=== PATIENT | female | born 1940 | race Caucasian/White ===

== ENCOUNTER 2019-01-30 05:38 | Inpatient (IN) | payer MEDICARE ==
[~2019-01-30] VITALS: Ht 160 cm; Wt 95.9 kg
[2019-01-30] VITALS (7 sets, daily range): BP systolic 122–184; BP diastolic 40–71; BMI 37.6
--- NOTE | ~2019-01-30 | HEMODYNAMI ---
PATIENT:ROSE OLSON MEDICAL RECORD: [id number] : 36 LOCATION:[facility] D.2124 ADMISSION DATE: 01/30/19 Generatedon:02/02/20199:15 Patient name: ROSE OLSON Patient #: [id number] SSN: [id number] : 1940 Date of study: 02/02/2019 Page: Of Hemodynamic Procedure Report Patient Data Patient Demographics Procedure consent was obtained First Name: ROSE Gender: Female Last Name: WHITNEY : 1940 Patient #: [id number] Age: 78 year(s) Race: SSN: [id number] Additional ID: [id number] Contact details Address: [address] [place] [address] State: [place] City: [place] Zip code: [address] Past Medical History Allergies: No known allergies Admission Admission Data Admission Date: 01/30/2019 Admission Time: 6:32 Arrival Date: 02/02/2019 Arrival Time: 0:00 Admit Source: Other Insurance Payor: Medicare Room #: D.2124 [facility] #: [id number] Height (in.): 62.99 BSA: 1.98 (m2) Height (cm.): 160 BMI: 37.5 (kg/m2) Weight (lbs.): 211.64 Weight (kg.): 96 Lab Results Lab Result Date: 02/02/2019 Lab Result Time: 0:00 Biochemistry Name Units Result Min Max BUN mg/dl 40 --(----)-* 7 18 Creatinine mg/dl 2.8 --(----)-* 0.6 1.3 eGFR ml/min 17 *-(----)-- 90 120 NONAFRICAN CBC Name Units Result Min Max Hematocrit % 37.3 *-(----)-- 42 54 Hemoglobin g/dl 11.9 *-(----)-- 13.5 17.5 Procedure Procedure Types Cath Procedure Diagnostic Procedure [facility] w/Coronaries Sedation Charges Moderate Sedation up to 15 minutes Procedure Description Procedure Date Procedure Date: 02/02/2019 Procedure Start Time: 8:42 Procedure End Time: 9:12 Procedure Staff Name Function Abelardo Villa MD Performing Physician Barb Houston RT Monitor Kia Musa RT Monitor Kelley Holman RT Scrub Anupam Kulkarni RN Nurse Indication CHF Procedure Data Cath Procedure Fluoroscopy Diagnostic fluoroscopy Total fluoroscopy Time: 0 time: 0 min min Diagnostic fluoroscopy Total fluoroscopy dose: 455 dose: 455 mGy mGy Contrast Material Contrast Material Type Amount (ml) Isovue 300 70 Entry Location Entry Primary Successful Side Size Upsize Upsize Entry Closure Succes sful Closure Location (Fr) 1 (Fr) 2 (Fr) Remarks Device Remarks Femoral Left 5 Fr Exoseal artery Estimated blood loss: 5 ml Diagnostic catheters Device Type Used For End Catheter Placement MULTIPACK 3DRC 5Fr Procedure catheter MULTIPACK Pigtail 5 Fr Procedure catheter MULTIPACK JL 4.0 5Fr Left Coronary catheter Angiography Procedure Complications No complications Procedure Medications Medication Administration Route Dosage 0.9% NaCl I.V. 100 ml/hr Oxygen etCO2 Nasal cannula 2 l/min Heparin Flush Bag added to field 2 bags (1000units/500ml NS) Lidocaine 2% added to field 20 Versed I.V. 1 mg Fentanyl I.V. 25 mcg Fentanyl I.V. 25 mcg Versed I.V. 0.5 mg Fentanyl I.V. 25 mcg Hemodynamics Rest BSA: 1.98 (m2) HGB: 11.9 (g/dl) O2 Consumption: Estimated: 180.57 (ml/min) O2 Co nsumption indexed: Estimated:91.2 (ml/min/m) Heart Rate: 73 (bpm) Pressure Samples Time Site Value (mmHg) Purpose Heart Use Rate(bpm) 8:59 AO 155/13(54) Snapshot 59 9:00 LV 153/9,9 Snapshot 61 Gradients Valve Time Site Site Mean SEP/DFP Peak To Heart Use 1 2 (mmHg) (sec/min) Peak Rate (mmHg) (bpm) Aortic 9:00 LV AO 65 Snapshots Pre Cath Intra NCS Post Cath Vital Signs Time Heart Resp SPO2 etCO2 NIBP (mmHg) Rhythm Pain Sedation Rate (ipm) (%) (mmHg) Status Level (bpm) 8:31:21 78 21 95 0 211/83(157) NSR 0 (11) 10(A) , No pain 8:36:18 74 27 96 0 190/73(160) NSR 0 (11) 10(A) , No pain 8:41:05 70 26 91 0 183/73(134) NSR 0 (11) 10(A) , No pain 8:45:52 69 24 94 0 183/80(140) NSR 0 (11) 10(A) , No pain 8:50:41 69 20 96 15 183/77(144) NSR 0 (11) 10(A) , No pain 8:55:25 66 21 93 0 173/75(134) NSR 0 (11) 9(A) , No pain 9:01:24 62 19 93 21 159/72(123) NSR 0 (11) 9(A) , No pain 9:06:06 61 17 96 22.5 160/68(129) NSR 0 (11) 9(A) , No pain 9:10:49 58 19 96 16.5 163/71(132) NSR 0 (11) 9(A) , No pain Medications Time Medication Route Dose Verified Delivered Reason Notes Effe ctiveness by by 8:36:09 0.9% NaCl I.V. 100 Anupam Anupam for low 02 ml/hr Lorigan Lorigan sats RN RN 8:36:22 Oxygen etCO2 2 Anupam Anupam for low 02 Nasal l/min Lorigan Lorigan sats cannula RN RN 8:36:37 Heparin Flush added 2 Anupam Anupam used for Bag to bags Lorigan Lorigan procedure (1000units/500ml field RN RN NS) 8:36:53 Lidocaine 2% added 20ml Anupam Anupam for local to vial Lorigan Lorigan anesthetic field RN RN 8:42:27 Versed I.V. 1 mg Anupam Anupam for Lorigan Lorigan sedation RN RN 8:42:38 Fentanyl I.V. 25 Anupam Anupam for mcg Lorigan Lorigan sedation RN RN 8:50:18 Fentanyl I.V. 25 Anupam Anupam for mcg Lorigan Lorigan sedation RN RN 8:51:44 Versed I.V. 0.5 Anupam Anupam for mg Lorigan Lorigan sedation RN RN 8:52:53 Fentanyl I.V. 25 Anupam Anupam abdi [facility] Cayla Kulkarni sedation RN order control clerk blood bank Log Time Note 8:01:35 Informed consent obtained and on chart 8:02:03 Procedure Status Urgent Heart Cath (IP). 8:02:04 Time tracking: Regular hours (M-F 7:00 - 5:00) 8:02:11 Plan of Care:Hemodynamics will remain stable., Cardiac rhythm will remain stable., Comfort level will be maintained., Respiratory function will remain adequate., Patient/ family verbilizes understanding of procedure., Procedure tolerated without complication., Recovers from procedure without complications.. 8:02:16 Aishwarya Field RN sent for patient. Start room use. 8:02:23 H&P Date Dictated: 02/02/2019 ER History on chart.. 8:05:12 Lab Result : BUN 40 mg/dl 8:05:12 Lab Result : Hematocrit 37.3 % 8:05:12 Lab Result : eGFR NONAFRICAN 17 ml/min 8:05:12 Lab Result : Creatinine 2.8 mg/dl 8:05:12 Lab Result : Hemoglobin 11.9 g/dl 8:05:46 Patient allergic to No known allergies 8:07:10 Risk of Mortality: 1.6 8:07:13 Risk of blood transfusion: 4.2 8:07:17 Risk of DEBI: 5.3 8:11:35 Indication : CHF 8:12:17 Arrival Date: 02/02/2019 12:00:00 AM 8:12:52 Insurance Payor : Medicare 8:12:57 Admit Source: Other 8:13:03 Patient Height : 62.99 inches 8:13:09 Patient Weight : 211.64 lbs 8:20:34 Patient received from Med II to CCL 1 Alert and oriented. Tansferred to table in Supine position. 8:28:08 Warm blankets applied, and dylan hugger turned on for patient comfort. 8:28:09 Correct patient and procedure confirmed by team. 8:28:10 ECG and BP/O2 sat monitors applied to patient. 8:28:22 Vital chart was started 8:28:24 Baseline sample Acquired. 8:28:29 Full Disclosure recording started 8:28:30 8:28:36 Pre-procedure instructions explained to patient. 8:28:39 Pre-op teaching completed and patient verbalized understanding. 8:28:59 Family unavailable. 8:29:03 Patient NPO since Midnight. 8:29:11 Is the patient allergic to Iodine/contrast media? No. 8:29:19 Is patient on blood thinner?No 8:29:25 Patient diabetic? Yes. 8:29:29 If diabetic: On Metformin? No 8:29:35 Patient not . Patient is over age 53. 8:29:37 ----Pre-sedation anethsthesia assessment.---- 8:29:42 Previous problem with sedation/anesthesia? No ? 8:29:45 Snore? Yes 8:29:47 Sleep apnea? No 8:29:50 Deviated septum? No 8:29:53 Opens mouth fully? Yes 8:29:54 Sticks out tongue? Yes 8:30:05 Airway obstruction? Yes asthma 8:30:19 Dentures? Yes in tight 8:31:06 NO RADIAL DUE TO IV ACCESS. 8:31:13 Patient pain scale 0/10 ?. 8:31:28 IV patent on arrival in right hand with 0.9% NaCl at [facility]. 8:31:45 Pre procedure: right dorsailis pedis pulse 1+ Palpable, but thready & weak; easily obliterated 8:32:06 Lab results completed and on chart. 8:33:12 Right groin area was prepped with chlora-prep and draped in sterile fashion 8:33:14 Alarms reviewed by R. N. 8:33:16 Sharps counted by scrub and verified by R.N. 8:33:18 Physician arrived 8:36:09 0.9% NaCl 100 ml/hr I.V. was administered by Anupam Kulkarni RN; for low 02 sats; Verbal order read back and verified. 8:36:22 Oxygen 2 l/min etCO2 Nasal cannula was administered by Anupam Kulkarni RN; for low 02 sats; Verbal order read back and verified. 8:36:37 Heparin Flush Bag (1000units/500ml NS) 2 bags added to field was administered by Anupam Kulkarni RN; used for procedure; Verbal order read back and verified. 8:36:53 Lidocaine 2% 20ml vial added to field was administered by Anupam Kulkarni RN; for local anesthetic; Verbal order read back and verified. 8:39:37 Zero performed for pressure channel P1 8:39:51 Use device set Femoral Dx 8:39:54 ACIST Syringe (54290) opened to sterile field. 8:39:55 Bag Decanter (2002S) opened to sterile field. 8:39:56 Medline Cath Pack ([id number]) opened to sterile field. 8:39:59 ACIST Hand Control (59278) opened to sterile field. 8:40:00 ACIST Manifold (64993) opened to sterile field. 8:40:01 DIAGNOSTIC Multipack 5Fr catheter set (PF8552) opened to sterile field. 8:40:02 Tegaderm 4 x 4 (1626W) opened to sterile field. 8:40:05 SHEATH 5FR Grover (WLR866) opened to sterile field. 8:40:06 EMERALD Guide Wire (840-895) opened to sterile field. 8:41:29 --------ALL STOP TIME OUT------ 8:41:29 Final Timeout: patient, procedure, and site verified with staff and physician. All members of the team are in agreement. 8:41:31 Right groin site verified by team. 8:41:34 Fire Safety Assessment: A--An alcohol-based skin anteseptic being used preoperatively., C--Open oxygen or nitrous oxide is being used., D--An ESU, laser, or fiber-optic light is being used. 8:41:40 Physical assessment completed. ASA score P 3 - A patient with severe systemic disease as per Abelardo Villa MD. 8:41:44 4) 15-29 Severley reduced kidney function. 8:41:48 Maximum allowable contrast dose (3.7 X eGFR X 0.75)47 ml. 8:41:52 Sedation plan: IV Moderate Sedation Medication:Versed, Fentanyl 8:42:05 Procedure started. 8:42:12 Local anesthetic to right femoral artery with Lidocaine 2% by Abelardo Villa MD.INITIAL ACCESS ONLY 8:42:27 Versed 1 mg I.V. was administered by Anupam Kulkarni RN; for sedation; Verbal order read back and verified. 8:42:38 Fentanyl 25 mcg I.V. was administered by Anupam Kulkarni RN; for sedation; Verbal order read back and verified. 8:50:16 UNABLE TO GAIN ACCESS ON THE RIGHT GROIN. 8:50:18 Fentanyl 25 mcg I.V. was administered by Anupam Kulkarni RN; for sedation; Verbal order read back and verified. 8:50:29 Left groin site verified by team AND PREPPED AND DRAPPED IN STERILE FASHION 8:50:48 Local anesthetic to left femerol artery with Lidocaine 2% by Abelardo Villa MD.ADDITIONAL ACCESS 8:51:44 Versed 0.5 mg I.V. was administered by Anupam Kulkarni RN; for sedation; Verbal order read back and verified. 8:52:53 Fentanyl 25 mcg I.V. was administered by Anupam Kulkarni RN; for sedation; Verbal order read back and verified. 8:55:15 A 5 Fr sheath was inserted into the Left Femoral artery 8:55:50 GLIDE WIRE ANGLE 260cm (VV2038) opened to sterile field. 8:56:13 A MULTIPACK 3DRC 5Fr catheter was advanced over the wire and used for Procedure. 8:57:24 TORQUE DEVICE PLASTIC .038 ( TD01) opened to sterile field. 8:57:56 RCA angiography performed. 8:58:32 Catheter exchanged over wire. 9:00:24 A MULTIPACK Pigtail 5 Fr catheter was advanced over the wire and used for Procedure. 9:00:35 LV gram done using BELLMAY 9:00:45 EF : 50 % 9:00:47 LV hemodynamics recorded. 9:00:53 Injector settings: Ml/sec: 10, Volume: 20, 9:00:56 Catheter removed. 9:01:07 A MULTIPACK JL 4.0 5Fr catheter was advanced over the wire and used for Left Coronary Angiography. 9:02:26 LCA angiography performed. 9:04:10 Catheter removed. 9:04:14 EXOSEAL 5Fr (EX500) opened to sterile field. 9:04:24 ACCDominant side:Right 9:04:53 Sheath removed intact; hemostasis achieved with Exoseal to the Left Femoral artery. 9:04:58 Procedure ended.(Physican Out) 9:05:53 Contrast amount:Isovue 300 70ml. 9:05:56 Maximum allowable dose exceeded? No. 9:06:03 Fluoroscopy time 00.00 minutes. 9:06:12 Fluoroscopy dose: 455 mGy 9:06:12 Flurop Dose total: 455 9:06:22 Dose Area Product 42738 mGy/cm. 9:06:27 Sharps counted by scrub and verified by R.N. 9:06:35 Insertion/operative site no bleeding no hematoma. 9:06:44 Post-op/insertion site Left Femoral artery dressed using a 4 x 4 and Tegaderm. 9:07:08 ACC Patient presents with Stable Angina CCS Anginal Class 2--Slight limitation of ordinary activity. 9:07:16 ACCPatient has been prescribed/administered the following anti-anginal medication within the last 2 weeks: None 9:07:41 Post left femerol artery:stable 9:07:59 Post Procedure Pulses reassessed and unchanged 9:08:27 Post-procedure physical assessment completed. ASA score P 3 - A patient with severe systemic disease as per Abelardo Villa MD. 9:08:33 Post procedure rhythm: unchanged. 9:09:31 Estimated blood loss: 5 ml 9:09:36 Post procedure instruction explained to patient.Patient verbalizes understanding. 9:09:40 Patient needs reinforcement of post procedure teaching. 9:10:59 Procedure type changed to Cath procedure, Diagnostic procedure, LHC, LHC w/Coronaries, Sedation Charges, Moderate Sedation up to 15 minutes 9:11:04 Procedure and supply charges have been captured, reviewed, submitted and are correct. 9:12:31 Procedure Complication : No complications 9:12:37 Vital chart was stopped 9:12:40 Operative report dictated upon procedure completion. 9:12:41 See physician's report for complete and final results. 9:12:44 Report given to Med II. 9:12:51 Patient transfered to Med II with Bed. 9:12:54 Procedure ended. 9:12:54 Full Disclosure recording stopped 9:12:59 End room use (Document Last) Device Usage Item Name Manufacture Quantity Catalog Hospital Part Current Minimal L ot# / Number Charge Number Stock Stock Serial# Code [facility] 1 93389 [id number] [id number] 108705 20 Syringe Medical (04922) Systems Inc Bag Microtek 1 2001S 244345 65933 646560 5 Decanter Medical Inc. (2001S) Medline Medline 1 [id number] 428768 84603 950685 5 Cath Pack ([id number]) ACIST Hand Acist 1 94484 450279 818709 805190 5 Control Medical (38311) Systems Inc ACIST Acist 1 24130 755532 341565 847418 5 Manifold Medical (65822) Systems Inc DIAGNOSTIC Cardinal 1 DC6994 723979 50816 161465 30 Multipack Health 5Fr catheter set (DO4085) Tegaderm 4 3M 1 1626W 614833 303714 260647 5 x 4 (1626W) SHEATH 5FR Terumo 1 XHA482 221228 694676 761954 5 Grover (SXO921) EMERALD Cardinal 1 502455 815530 611365 106080 5 Guide Wire [facility] (502455) GLIDE WIRE Terumo 1 HB1560 000501 148443 928911 5 ANGLE 260cm (XR9029) MULTIPACK Cardinal 1 669184 5 3DRC 5Fr Health catheter TORQUE [place] 1 TD01 584633 879881 087906 5 DEVICE Scientific PLASTIC .038 ( TD01) MULTIPACK Cardinal 1 204217 5 Pigtail 5 Health Fr catheter MULTIPACK Cardinal 1 [id number] 5 JL 4.0 5Fr Health catheter EXOSEAL 5Fr Cardinal 1 EX500 793756 122905 700056 10 (EX500) Health Signature Audit [place] Stage Time Signature Unsigned Intra-Procedure 02/02/2019 Kia 9:14:00 AM Lencho RT(R) (CV) Intra-Procedure 02/02/2019 Anupam 9:14:35 AM Cayla RADFORD Intra-Procedure 02/02/2019 Abelardo Shi 9:15:27 AM Terrell CHAVES [facility] [address] [id number]
[2019-01-30 06:04] LABS: BASOPHILS 0.2 % (0-2); EOSINOPHILS 1.4 % (0-7); IMMATURE GRANULOCYTES 0.2 % (0-5); LYMPHOCYTES 15.8 % (15-50); MCH 28.5 pg (26.0-34.0); MCHC 33.3 g/dL (31.0-37.0); MCV 85.4 fL (80.0-100.0); MEAN PLATELET VOLUME 11.5 fL (7.4-10.4); MONOCYTES 5.5 % (2-11); NEUTROPHILS 76.9 % (40-80); PLATELET COUNT 256 10x3/uL (130-400); RBC 4.92 10x6/uL (4.00-5.40); RDW 14.1 % (11.5-14.5); WBC 11.5 10x3/uL (4.8-10.8)
[2019-01-30] MEDS ORDERED: FUROSEMIDE20 MG PO (06:13)
[2019-01-30] MEDS ORDERED: ALDACTONE25 MG PO (06:13)
[2019-01-30] MEDS ORDERED: GLIPIZIDE10 MG PO (06:13)
[2019-01-30] MEDS ORDERED: OMEPRAZOLE20 M1 PO (06:13)
[2019-01-30] MEDS ORDERED: ADALAT CC90 MG PO (06:13)
[2019-01-30] MEDS ORDERED: LEVO-T125 MCG PO (06:14)
[2019-01-30] MEDS ORDERED: LIPITOR80 MG PO (06:14)
[2019-01-30] MEDS ORDERED: ROCALTROL0.5 MCG PO (06:14)
[2019-01-30] MEDS ORDERED: BAYER CHEWABLE81 MG PO (06:14)
[2019-01-30] MEDS ORDERED: JANUVIA100 MG PO (06:14)
[2019-01-30] MEDS ORDERED: LISINOPRIL2.5 MG PO (06:15)
--- NOTE | 2019-01-30 06:19 | NUR ---
CHEST PRESSURE WHEN PRESSED BY EDP 7/10. FIRST NITRO ADMINISTERED
--- NOTE | 2019-01-30 06:31 | NUR ---
CHEST PRESSURE 4/10 AFTER FIRST NITRO. SECOND NITRO ADMINISTERED AT THIS TIME.
--- NOTE | 2019-01-30 07:00 | NUR ---
PT CARE ASSUMED AT THIS TIME, PT IS AAO X 4, RESPIRATIONS EVEN AND UNLABORED, PULSES EQUAL AND STRONG, NAD NOTED WILL MONITOR PATIENT.
[2019-01-30 07:50] LABS: PROTIME 12.7 SECONDS (11.6-15.0)
[2019-01-30 07:54] LABS: ALBUMIN 3.5 g/dL (3.4-5.0); ALKALINE PHOSPHATASE 78 U/L (46-116); ALT (SGPT) 22 U/L (10-68); CALC OSMOLALITY 296 mosm/kg (275-300); CHLORIDE - SERUM 100 mmol/L (98-107); CKMB 1.3 U/L (0.0-3.6); CREATINE KINASE 100 UL (21-215); GLUCOSE 218 mg/dL (74-106); PRO BNP 1712 pg/mL (0-450); PROTEIN - SERUM 6.9 g/dL (6.4-8.2); SODIUM 141 mmol/L (136-145); UREA NITROGEN 37 mg/dL (7-18); eGFR NON AFRICAN AMERICAN 16 mL/min (90-120)
--- NOTE | 2019-01-30 07:55 | NUR ---
PT ARRIVED TO FLOOR VIA STRETCHER BY TYSON MURILLO AND ACCOMPANIED BY SISTER AND FRIEND. PT WAS ABLE TO AMBULATE WITH MINIMAL ASSIST FROM THE STRETCHER TO THE BED. PT IS ALERT AND ORIENTED AND ON O2 AT 2L VIA NC. PT DOES NOT WEAR OXYGEN AT HOME. PT STATES SHE DOES WANT TO BE A FULL CODE. TELEMETRY PLACED ON PT AND SHE IS RUNNING SINUS RHYTHM. RIGHT HAND 20G IV SL. PT STATES HER LAST BM WAS 01/27/19 AND HAS BEEN HAVING TROUBLES WITH CONSTIPATION LATELY. PT HAS NO FURTHER NEEDS AT THIS TIME. PT'S SISTER AND FRIEND AT BEDSIDE. BED LOW. CL IN REACH.
[2019-01-30 08:01] LABS: POTASSIUM - SERUM 2.9 mmol/L (3.5-5.1)
[2019-01-30 08:02] LABS: CALCIUM 16.3 mg/dL (8.5-10.1); TROPONIN-I 0.068 ng/mL (0.000-0.060)
[2019-01-30] MEDS ORDERED: CITRACAL + D E1 EACH PO (08:06)
[2019-01-30] MEDS ORDERED: IMODIUM2 MG PO (08:07)
[2019-01-30] MEDS ORDERED: MULTI-DAY VITAM1 TAB PO (08:08)
[2019-01-30] MEDS ORDERED: FIBER-TABS625 MG PO (08:09)
[2019-01-30] MEDS ORDERED: FISH OIL 1,0001 CA1 PO (08:09)
[2019-01-30 10:15] LABS: MAGNESIUM - SERUM 1.4 mg/dL (1.8-2.4); T4 THYROXIN - FREE 1.58 ng/dL (0.76-1.46); THYROID STIMULATING HORMONE 2.7 uIU/mL (0.36-3.74)
[2019-01-30 14:22] LABS: CREATINE KINASE 72 UL (21-215)
[2019-01-30 15:08] LABS: TROPONIN-I 0.113 ng/mL (0.000-0.060)
--- NOTE | 2019-01-30 15:11 | NUR ---
LAB CALLED WITH A TROPONIN OF 0.113. PAGED DR. HILL.
--- NOTE | 2019-01-30 15:28 | NUR ---
DR. HILL NOT SENIOR POLICY ADVISOR PAGED DR. ROSE.
--- NOTE | 2019-01-30 15:32 | NUR ---
SPOKE WITH DR. ROSE AND GAVE HIM BACK STORY AND PT'S INCREASING TROPONIN LEVELS AND STATES "LETS NOT DRAW ANYMORE TROPONIN LEVELS" I REPEATED THIS BACK TO HIM AND HE SAID "YES LETS NOT". I VERBALIZED UNDERSTANDING.
--- NOTE | 2019-01-30 16:04 | NUR ---
ASSISTED PT TO BATHROOM AND SHE MISSED HAT FOR URINE COLLECTION. WILL TRY AGAIN.
--- NOTE | 2019-01-30 17:58 | NUR ---
ASSISTED PT TO BATHROOM AND STOOL GOT IN HAT FOR URINE CULTURE COLLECTION. THREW HAT IN COMMODE AWAY AND PUT NEW HAT IN COMMODE.
--- NOTE | 2019-01-30 18:04 | MORECARE ---
CASE MANAGEMENT DISCHARGE SUMMARY PATIENT: ROSE OLSON UNIT: [id number] ADM DATE: 01/30/19 AGE: 78 : 38 SEX: F ROOM/BED: D.1205 AUTHOR: IVON,DOC PHYSICIAN: REFERRING PHYSICIAN: TOMASA PADILLA MD DATE OF SERVICE: 01/30/19 Discharge Plan Patient Name: ROSE OLSON Facility[facility] : 1940 Planned Disposition: Home Anticipated Discharge Date: Discharge Date: Expected LOS: Initial Reviewer: [email or web address] Initial Review Date: 01/30/2019 Generated: 01/30/19 7:04 pm Comments DCP- Discharge Planning Updated by [email or web address]: Miguelina Mesa on 01/30/19 5:[address] Patient Name: ROSE OLSON Admission Status: ER Accout number: [id number] Admission Date: 01-30-2019 : 1940 Admission Diagnosis: Attending: TOMASA PADLILA Current LOS: 1 Anticipated DC Date: Planned Disposition: Home Primary Insurance: [facility] MEDICARE SOLUTIONS Discharge Planning Comments: CM met with patient to complete initial dc planning assessment. CM educated patient on the CM role and verbal consent given by patient to complete assessment. Patient lives at home with her sister where she is independent with her care. At discharge patient plans to return home and feels this is a safe discharge. CM discussed availability of home health, rehab services, and medical equipment. Her sister will be her roll off driver home. Patient may need walk test if 02 is required at discharge. Patient denied known discharge needs at this time. CM will continue to follow and will assist as needed with dc plans/needs. Software Lead: Miguelina Mesa DCPIA - Discharge Planning Initial Assessment Updated by [email or web address]: Miguelina Mesa on 01/30/19 6:00 pm * Is the patient Alert and Oriented? Yes * How many steps to enter\exit or inside your home? * PCP [facility] * Pharmacy [facility] * Preadmission Environment Home with Family * ADLs Independent * Other Equipment CANE , WALKER * List name and contact numbers for known caregivers / representatives who currently or will assist patient after discharge: TRAY ADAME - SISTER- [phone] * Verbal permission to speak to the caregivers and representatives has been obtained from the patient. Yes * Additional services required to return to the preadmission environment? No * Can the patient safely return to the preadmission environment? Yes * Has this patient been hospitalized within the prior 30 days at any hospital? No Patient Name: ROSE OLSON Page [phone] at 1804 All edits/amendments must be made on the electronic document DICTATION DATE: 01/30/191803 HEMATOLOGY TECHNOLOGIST: BETHANIE 01/30/191803 RPT#: [id number] DC DATE: STATUS: ADM IN [facility] [address] [place] [address] END OF REPORT
[2019-01-30 20:49] LABS: APPEARANCE CLEAR (CLEAR); BILIRUBIN NEGATIVE (NEGATIVE); COLOR YELLOW (YELLOW); GLUCOSE NEGATIVE (NEGATIVE); KETONE NEGATIVE (NEGATIVE); NITRITE NEGATIVE (NEGATIVE); PROTEIN NEGATIVE (NEGATIVE); SPECIFIC GRAVITY 1.015 (1.005-1.020); UROBILINOGEN NORMAL (NORMAL)
[2019-01-30 20:51] LABS: BACTERIA MODERATE /hpf (NEGATIVE); EPITHELIAL CELLS 0-5 /hpf (0-5); RED CELLS - URINE OCC /hpf (0-5)
--- NOTE | 2019-01-30 21:06 | NUR ---
ASSISTED PT UP TO BATHROOM TO VOID. SENT URINE SPECIMEN TO LAB. FSBS 155 - GAVE 2 UNITS INSULIN PER SS. GAVE PILLS IN APPLESAUCE FOR EASIER SWALLOWING. PT TOLERATED WELL. EKG DONE BY RT [id number]. COMPLETE ASSESSMENT PER FLOW-SHEET. WILL CONTINUE TO MONITOR. BED LOW. CALL LIGHT IN REACH.
[2019-01-31 00:01] VITALS: BP 169/47
[2019-01-31 02:51] LABS: BASOPHILS 0.3 % (0-2); EOSINOPHILS 2.4 % (0-7); HEMATOCRIT 37.8 % (36.0-48.0); HEMOGLOBIN 12.4 g/dL (12-16); IMMATURE GRANULOCYTES 0.5 % (0-5); MCH 28.1 pg (26.0-34.0); MCHC 32.8 g/dL (31.0-37.0); MCV 85.5 fL (80.0-100.0); MEAN PLATELET VOLUME 11.9 fL (7.4-10.4); MONOCYTES 7.6 % (2-11); NEUTROPHILS 58.2 % (40-80); PLATELET COUNT 233 10x3/uL (130-400); RBC 4.42 10x6/uL (4.00-5.40); RDW 14.1 % (11.5-14.5); WBC 11.1 10x3/uL (4.8-10.8)
[2019-01-31 03:07] LABS: ANION GAP 6.5 mmol/L (8-16); CARBON DIOXIDE 36.2 mmol/L (21.0-32.0); CREATININE - SERUM 3.1 mg/dL (0.6-1.3); MAGNESIUM - SERUM 1.4 mg/dL (1.8-2.4); POTASSIUM - SERUM 3.7 mmol/L (3.5-5.1)
[2019-01-31 03:08] LABS: CALCIUM 13.5 mg/dL (8.5-10.1)
[2019-01-31 03:14] LABS: ALBUMIN 3.1 g/dL (3.4-5.0)
[2019-01-31 04:03] VITALS: BP 163/50
--- NOTE | 2019-01-31 07:15 | NUR ---
PT RESTING IN BED, SHIFT ASSESSMENT PERFORMED. DENIES ANY NEEDS AT THIS TIME, WILL CONT TO FOLLOW POC
[2019-01-31 07:48] VITALS: BP 164/61
[2019-01-31 10:10] VITALS: Ht 160 cm; Wt 95.9 kg
--- NOTE | 2019-01-31 12:10 | NUR ---
PT RESTING IN BED, FAMILY AT BEDSIDE, DENIES ANY NEEDS AT THIS TIME, WILL CONT TO FOLLOW POC
[2019-01-31 12:44] VITALS: BP 152/64
--- NOTE | 2019-01-31 15:57 | NUR ---
PIV TO RIGHT HAND INFILTRATED. PIV REMOVED WITH CATHETER TIP INTACT. 22G PIV INSERTED X1 ATTEMPT TO PT LEFT WRIST. PT TOLERATED WELL. WILL CONT TO FOLLOW POC
[2019-01-31 16:08] VITALS: BP 169/67
--- NOTE | 2019-01-31 17:07 | NUR ---
PT SITTING ON SIDE OF BED EATING SUPPER. DENIES ANY NEEDS AT THIS TIME, WILL CONT TO FOLLOW POC
--- NOTE | 2019-01-31 17:31 | NUR ---
PT ARRIVED TO FLOOR. ALERT AND ORIENTED. O2 AT 2L VIA NC. PT WANTING TO CALL SISTER. HELPED HER WITH PHONE AND CALLED HER SISTER. PT HAS NO FURTHER NEEDS AT THIS TIME. BED LOW.CL IN REACH.
--- NOTE | 2019-01-31 19:20 | NUR ---
PT CARE ASSUMED. BEDSIDE SHIFT REPORT COMPLETE. PT RESING IN BED ON LEFT SIDE. RR EVEN AND UNLABORED ON 2L NC. X1 ASST TO RESTROOM. GAIT SLOW AND STEADY. NO FURHTER NEEDS EXPRESSED AT THIS TIME. SR X2, CALLL LIGHT IN REACH. WILL CTM.
[2019-01-31 20:00] VITALS: BP 162/54
[2019-02-01] VITALS: BP 188/64
[2019-02-01 04:00] VITALS: BP 160/46
[2019-02-01 04:41] LABS: BASOPHILS 0.3 % (0-2); EOSINOPHILS 4.3 % (0-7); HEMATOCRIT 37.3 % (36.0-48.0); HEMOGLOBIN 11.9 g/dL (12-16); IMMATURE GRANULOCYTES 0.3 % (0-5); LYMPHOCYTES 25.7 % (15-50); MCH 27.9 pg (26.0-34.0); MCHC 31.9 g/dL (31.0-37.0); MCV 87.4 fL (80.0-100.0); MEAN PLATELET VOLUME 11.5 fL (7.4-10.4); MONOCYTES 6.7 % (2-11); NEUTROPHILS 62.7 % (40-80); PLATELET COUNT 213 10x3/uL (130-400); RBC 4.27 10x6/uL (4.00-5.40); RDW 14.1 % (11.5-14.5); WBC 8.7 10x3/uL (4.8-10.8)
[2019-02-01 04:45] LABS: ANION GAP 6.6 mmol/L (8-16); CALCIUM 11.8 mg/dL (8.5-10.1); CARBON DIOXIDE 36.6 mmol/L (21.0-32.0); CREATININE - SERUM 2.8 mg/dL (0.6-1.3); POTASSIUM - SERUM 3.2 mmol/L (3.5-5.1)
--- NOTE | 2019-02-01 07:00 | NUR ---
RECIEVE REPORT. ALERT AND ORIENTED X4. RESTING IN BED. DENIES ANY NEEDS. CONTINUE PLAN OF CARE AND SAFETY PRECAUTIONS. SINUS RYTHM 67 ON TELEMETRY.
[2019-02-01 07:58] VITALS: BP 173/57
[2019-02-01 09:35] LABS: CHOL - HDL RATIO 5.7 ratio (2.3-4.1); LDL-HDL RATIO 2.8 ratio (1.5-3.5)
[2019-02-01 12:41] VITALS: BP 157/60
--- NOTE | 2019-02-01 14:03 | NUR ---
Pt with complaint of IV hurting so removed and area assessed to have dime size area elevated. New iv started with 22 gauge to right wrist. Upon removal, iv tip intact, dressing applied. Consents for seed laboratory assistant scheduled for 02/02 signed and on chart.
[2019-02-01 17:04] VITALS: BP 189/54
[2019-02-01 20:00] VITALS: BP 181/56
--- NOTE | 2019-02-01 20:00 | NUR ---
UNABLE TO FLUSH IV. 20G RESITED TO LEFT WRIST X2 ATTEMPT. PT TOLERATED WELL.
[2019-02-02] VITALS: BP 117/60
[2019-02-02 04:00] VITALS: BP 185/66
[2019-02-02 06:09] LABS: ANION GAP 8.7 mmol/L (8-16); CALCIUM 10.4 mg/dL (8.5-10.1); CARBON DIOXIDE 34.3 mmol/L (21.0-32.0); CREATININE - SERUM 2.2 mg/dL (0.6-1.3)
[2019-02-02 06:25] LABS: BASOPHILS 0.4 % (0-2); EOSINOPHILS 4.2 % (0-7); HEMATOCRIT 36.7 % (36.0-48.0); HEMOGLOBIN 11.8 g/dL (12-16); IMMATURE GRANULOCYTES 0.2 % (0-5); LYMPHOCYTES 25.7 % (15-50); MCH 27.6 pg (26.0-34.0); MCHC 32.2 g/dL (31.0-37.0); MCV 85.7 fL (80.0-100.0); MEAN PLATELET VOLUME 12.1 fL (7.4-10.4); MONOCYTES 7.1 % (2-11); NEUTROPHILS 62.4 % (40-80); PLATELET COUNT 232 10x3/uL (130-400); RBC 4.28 10x6/uL (4.00-5.40); RDW 14.1 % (11.5-14.5); WBC 9.1 10x3/uL (4.8-10.8)
--- NOTE | 2019-02-02 07:00 | NUR ---
RECIEVED REPORT. ALERT AND ORIENTED X4. RESTING IN BED. EXPRESSES FEELING NERVOUS ABOUT BILLBOARD POSTER HELPER. POSITIVE FEEDBACK PROVIDED. SINUS RYTHM ON TELEMETRY. DENIES ANY NEEDS. CONTINUE PLAN OF CARE AND SAFETY PRECAUTIONS.
[2019-02-02 08:27] VITALS: BP 172/82
--- NOTE | 2019-02-02 09:30 | NUR ---
ARRIVE BACK TO ROOM FROM BED WORKER VIA BED. HOB FLAT. SEDATED, AROUSES TO DEEP STIMULI. BP-175/67, HR-60 SINUS RYTHM, O2 @ 2.5L NC [id number]%. LT GROIN DRESSING CLEAN DRY INTACT. FREE FROM BLEEDING. FREE FROM HEMATOMA. PULSE PALPABLE BILATERALLY. CONTINUE PLAN OF CARE AND SAFETY PRECAUTIONS.
[2019-02-02 13:04] VITALS: BP 175/64
[2019-02-02] MEDS ORDERED: ZITHROMAX500 MG PO (15:33)
[2019-02-02] MEDS ORDERED: OMNICEF300 MG PO (15:33)
--- NOTE | 2019-02-02 16:36 | MORECARE ---
CASE MANAGEMENT DISCHARGE SUMMARY PATIENT: ROSE OLSON UNIT: [id number] ADM DATE: 01/30/19 AGE: 78 : 38 SEX: F ROOM/BED: D.2068 AUTHOR: IVON,DOC PHYSICIAN: REFERRING PHYSICIAN: TOMASA PADILLA MD DATE OF SERVICE: 02/02/19 Discharge Plan Patient Name: ROSE OLSON Facility: [facility]:[place] : 1940 Planned Disposition: Home Anticipated Discharge Date: 02/02/19 Discharge Date: Expected LOS: 3 Initial Reviewer: [email or web address] Initial Review Date: 01/30/2019 Generated: 02/02/19 5:36 pm DCP- Discharge Planning Updated by [id number]: Miguelina Mesa on 01/30/19 5:[address] Patient Name: ROSE OLSON Admission Status: ER Accout number: [id number] Admission Date: 01-30-2019 : 1940 Admission Diagnosis: Attending: TOMASA PADILLA Current LOS: 1 Anticipated DC Date: Planned Disposition: Home Primary Insurance: [facility] MEDICARE SOLUTIONS Discharge Planning Comments: CM met with patient to complete initial dc planning assessment. CM educated patient on the CM role and verbal consent given by patient to complete assessment. Patient lives at home with her sister where she is independent with her care. At discharge patient plans to return home and feels this is a safe discharge. CM discussed availability of home health, rehab services, and medical equipment. Her sister will be her truck driver teamster home. Patient may need walk test if 02 is required at discharge. Patient denied known discharge needs at this time. CM will continue to follow and will assist as needed with dc plans/needs. Chemical Research Technician: Miguelina Mesa DCPIA - Discharge Planning Initial Assessment Updated by [email or web address]: Miguelina Mesa on 01/30/19 6:00 pm * Is the patient Alert and Oriented? Yes * How many steps to enter\exit or inside your home? * PCP [facility] * Pharmacy [facility] * Preadmission Environment Home with Family * ADLs Independent * Other Equipment CANE , WALKER * List name and contact numbers for known caregivers / representatives who currently or will assist patient after discharge: TRAY ADAME - SISTER- [phone] * Verbal permission to speak to the caregivers and representatives has been obtained from the patient. Yes * Additional services required to return to the preadmission environment? No * Can the patient safely return to the preadmission environment? Yes * Has this patient been hospitalized within the prior 30 days at any hospital? No External Providers External Provider: [facility] Next Contact Date: 02/02/2019 Service Request Date: Service Type: Resolution: Reviewer: Comments: Coverage Notice Reviewer: [email or web address] Frausto Notice Issued Date-Time: 02/02/2019 15:55 Notice Type: Patient Choice Letter Notice Delivered To: Patient Relationship to Patient: Insulation Cupola Charger Name: Delivery Method: HAND - Hand Delivered Nell Days: Prior Verbal Notification: Recipient Understood Notice: Yes Recipient Signature: Yes Med Rec Note Co-signed by Attending: Coverage Notice Comment: [facility] Reviewer: [id number] Frausto Notice Issued Date-Time: 02/02/2019 15:55 Notice Type: IM Discharge Notice Notice Delivered To: Patient Relationship to Patient: Insulation Cupola Charger Name: Delivery Method: HAND - Hand Delivered Nell Days: Prior Verbal Notification: Recipient Understood Notice: Yes Recipient Signature: Yes Med Rec Note Co-signed by Attending: Coverage Notice Comment: Last DP export: 01/30/19 5:04 Patient Name: ROSE OLSON Page 56207 at 1636 All edits/amendments must be made on the electronic document DICTATION DATE: 02/02/191635 SANIPRACTIC PHYSICIAN: BETHANIE 02/02/19 163 RPT#: [id number] [place] DATE: STATUS: ADM IN [facility] [address] [place] [address] END OF REPORT
--- NOTE | 2019-02-02 16:44 | MORECARE ---
CASE MANAGEMENT DISCHARGE SUMMARY PATIENT: ROSE OLSON UNIT: [id number] ADM DATE: 01/30/19 AGE: 78 : 38 SEX: F ROOM/BED: D.0045 AUTHOR: IVON,DOC PHYSICIAN: REFERRING PHYSICIAN: TOMASA PADILLA MD DATE OF SERVICE: 02/02/19 Discharge Plan Patient Name: ROSE OLSON Facility: [facility]:[place] : 1940 Planned Disposition: Home Anticipated Discharge Date: 02/02/19 Discharge Date: Expected LOS: 3 Initial Reviewer: [email or web address] Initial Review Date: 01/30/2019 Generated: 02/02/19 5:44 pm Comments DCP- Discharge Planning Updated by [email or web address]: Meño Frausto on 02/02/19 3:[address] Patient Name: ROSE OLSON Encounter No: [id number] : 1940 Primary Insurance: [facility] MEDICARE SOLUTIONS Anticipated DC Date: 02-02-2019 Planned Disposition: Home WITH HOME HEALTH External Planned Provider: [facility] DCP follow-up note: CM MET WITH PT IN ROOM TO DISCUSS DISCHARGE NEEDS AND PLANNING. CM DISCUSSED AVAILABILITY OF HOME HEALTH, REHAB SERVICES AND MEDICAL EQUIPMENT. PT WOULD LIKE HOME HEALTH, PCP IS DR. BOSWELL. CM PROVIDED PT WITH LISTING OF HOME HEALTH PROVIDERS, PT CHOICE IS [facility], CHOICE SIGNED. PT'S SISTER TO TRANSPORT HOME AT DISCHARGE TODAY. IMPORTANT MESSAGE FROM MEDICARE PROVIDED AND EXPLAINED. CM OBTAINED HOME HEALTH ORDER. CM CALLED [facility], , SPOKE TO AMALIA WHO TOOK REFERRAL INFORMATION AND WILL PLACE PT ON SCHEDULE FOR NEW HOME HEALTH CARE. CM FAXED REFERRAL AND DISCHARGE INFORMATION TO [facility] AT [phone]. MEMBERSHIP ASSISTANT NURSE NOTIFIED. Meño Frausto CASE [facility] DCP- Discharge Planning Updated by [email or web address]: Miguelina Mesa on 01/30/19 5:[address] Patient Name: ROSE OLSON Admission Status: ER Accout number: [id number] Admission Date: 01-30-2019 : 1940 Admission Diagnosis: Attending: TOMASA PADILLA Current LOS: 1 Anticipated DC Date: Planned Disposition: Home Primary Insurance: [facility] MEDICARE SOLUTIONS Discharge Planning Comments: CM met with patient to complete initial dc planning assessment. CM educated patient on the CM role and verbal consent given by patient to complete assessment. Patient lives at home with her sister where she is independent with her care. At discharge patient plans to return home and feels this is a safe discharge. CM discussed availability of home health, rehab services, and medical equipment. Her sister will be her bobtail driver home. Patient may need walk test if 02 is required at discharge. Patient denied known discharge needs at this time. CM will continue to follow and will assist as needed with dc plans/needs. Sales Exec: Miguelina Mesa DCPIA - Discharge Planning Initial Assessment Updated by [email or web address]: Miguelina Mesa on 01/30/19 6:00 pm * Is the patient Alert and Oriented? Yes * How many steps to enter\exit or inside your home? * PCP [facility] * Pharmacy [facility] * Preadmission Environment Home with Family * ADLs Independent * Other Equipment CANE , WALKER * List name and contact numbers for known caregivers / representatives who currently or will assist patient after discharge: TRAY ADAME - [facility]- [phone] * Verbal permission to speak to the caregivers and representatives has been obtained from the patient. Yes * Additional services required to return to the preadmission environment? No * Can the patient safely return to the preadmission environment? Yes * Has this patient been hospitalized within the prior 30 days at any hospital? No Coverage Notice Reviewer: [id number] Cordell Frausto Notice Issued Date-Time: 02/02/2019 15:55 Notice Type: Patient Choice Letter Notice Delivered To: Patient Relationship to Patient: Star Route Mail Driver Name: Delivery Method: HAND - Hand Delivered Nell Days: Prior Verbal Notification: Recipient Understood Notice: Yes Recipient Signature: Yes Med Rec Note Co-signed by Attending: Coverage Notice Comment: [facility] Reviewer: [id number] Cordell Frausto Notice Issued Date-Time: 02/02/2019 15:55 Notice Type: IM Discharge Notice Notice Delivered To: Patient Relationship to Patient: Star Route Mail Driver Name: Delivery Method: HAND - Hand Delivered Nell Days: Prior Verbal Notification: Recipient Understood Notice: Yes Recipient Signature: Yes Med Rec Note Co-signed by Attending: Coverage Notice Comment: Last DP export: 02/02/19 3:36 Patient Name: ROSE OLSON Page [phone] at 1644 All edits/amendments must be made on the electronic document DICTATION DATE: 02/02/191643 ENTRY LEVEL BUYER: BETHANIE 02/02/191643 RPT#: [id number] DC DATE: STATUS: ADM IN [facility] [address] [place] [address] END OF REPORT
--- NOTE | 2019-02-02 17:13 | NUR ---
pt given discharge instructions, family also educated. iv removed tip intact and dressing applied.
[2019-02-02 17:19] VITALS: BP 194/62
--- NOTE | 2019-02-03 11:41 | EC ---
PATIENT:ROSE OLSON DATE OF SERVICE: 01/30/19 SEX: F MEDICAL RECORD: [id number] DATE OF : [birth year] LOCATION:D. D.212 AGE OF PATIENT: 78 ADMISSION DATE: 01/30/19 REFERRING PHYSICIAN: INTERPRETING PHYSICIAN: ELIAZAR SINGH MD ECHOCARDIOGRAM REPORT ECHO CHARGES 4 ECHO COMPLETE Date: 01/30/19 CLINICAL DIAGNOSIS: CHF ECHOCARDIOGRAPHIC MEASUREMENTS (adult normal given) AC root (d.<3.7cm) 3.0 cm LV Septum d (<1.2 cm> 1.7 cm Valve Excursion 1.7 cm LV Septum (systole) 2.3 cm Left Atria (s.<4.0cm> 3.6 cm LVPW d(<1.2cm) 1.7 cm RV (d.<2.3cm) 2.4 cm LVPW (sytole) 2.5 cm LV diastole(<5.6CM) 5.3 cm MV E-F(>70mm/sec) cm LV systole 2.4 cm LVOT Diameter 1.8 cm MV exc.(>10mm) cm Est.ejection fraction (50-75%) % DOPPLER: LVIT cm/sec A 119 cm/sec E 87.0 cm/sec LA cm/sec RVSP 42.4 mmHg LVOT 107 cm/sec AOP1/2T m/s Asc. Ao 139 cm/sec RVOT 69.0 cm/sec RA cm/sec PA 100 cm/sec AV Gradient Peak 7.7 mmHg AV Mean 3.5 mmHg AV Area 2.0 cm MV Gradient Peak 6.3 mmHg MV Mean 1.4 mmHg MV Area cm COMMENTS: Interior Design Professional: [address] Packer Operator: 1 Dr. Singh TAPE# PACS Pericardial Effusion N DATE OF SERVICE: ECHOCARDIOGRAM FINDINGS: 1. Left ventricular chamber size is within normal limits. Left ventricular systolic function is normal. Overall ejection fraction estimated at 55%. 2. Left atrium is within normal limits at 3.6 cm. Right atrium and right ventricular chamber sizes are mildly dilated. 3. Valvular structures have normal structure and motion. ECHOCARDIOGRAM REPORT [id number] ROSE OLSON 4. Doppler interrogation reveals trivial to trace mitral regurgitation, moderate tricuspid regurgitation, no other valvular insufficiency or stenosis. Pulmonary systolic pressure is estimated at 42 mmHg. 5. No evidence of pericardial effusion or left ventricular thrombus. TRANSINT:[id number] Voice Confirmation ID: [id number] DOCUMENT ID: [id number] ELIAZAR SINGH MD at 1141 CC: [id number] DICTATION DATE: 01/30/19 1124 WOOL FLEECE GRADER: 01/30/19 1135 DIS IN 02/02/19 [facility] [address] [place] [id number]
--- NOTE | 2019-02-03 15:17 | OP ---
PATIENT NAME: ROSE OLSON MEDICAL RECORD: [id number] :[birth year] LOCATION:D.M2 D.2124 ADMISSION DATE:01/30/19 SURGEON: ZULY ROSE MD DATE OF OPERATION: 02/02/2019 PROCEDURE: Left heart catheterization, selective coronary angiography, left femoral artery approach. CATHETERS: A 5-Thai sheath, 5/4 left and right Forrest, 5/4 pig. The procedure was well tolerated. The patient returned to the laboy, sheath removed. ExoSeal device placed. FINDINGS: Left ventriculography in 30-degree BELLAMY view: Normal wall motion, normal systolic function. CORONARY ANATOMY: LEFT MAIN: Left main is free of disease. LAD: Free of disease in the diagonal system. CIRCUMFLEX: Free of disease in the marginal system. RIGHT CORONARY ARTERY: Dominant artery, gives rise to PDA, free of disease. IMPRESSION: Normal LV systolic function, normal anatomy. TRANSINT:[id number] Voice Confirmation ID: [id number] DOCUMENT ID: [id number] ZULY ROSE MD at 1517 CC: [id number] DICTATION DATE: 02/02/19 0908 CHANNELER INSOLE: 02/02/19 1119 DIS IN 02/02/19 [facility] [address] [place] [address]
== END 2019-02-02 17:36 | disposition home health service (06) | DRG 280 ==
LOC: D.ER 05:38 → D.M2 06:32 → D.M3 06:32 → D.M2 01-31 17:27 → D.SDCHOLD 02-02 11:14 → D.M2 02-02 11:14
PROVIDERS: Emergency Medicine; Internal Medicine Interventional Cardiology; ADMIT Internal Medicine Nephrology; ATTEND Internal Medicine Nephrology
PROC: B2151ZZ Fluoroscopy of Left Heart using Low Osmolar Contrast (ICD-10-PCS; 2019-02-02)
PROC: 4A023N7 Measurement of Cardiac Sampling and Pressure, Left Heart, Percutaneous Approach (ICD-10-PCS; 2019-02-02)
PROC: B2111ZZ Fluoroscopy of Multiple Coronary Arteries using Low Osmolar Contrast (ICD-10-PCS; principal; 2019-02-02 08:02)
DX: I21.A1 Myocardial infarction type 2 (principal); A41.9 Sepsis, unspecified organism; J18.9 Pneumonia, unspecified organism; I50.31 Acute diastolic (congestive) heart failure; N17.9 Acute kidney failure, unspecified; E87.6 Hypokalemia; E83.52 Hypercalcemia; E11.9 Type 2 diabetes mellitus without complications; E78.5 Hyperlipidemia, unspecified; I25.10 Atherosclerotic heart disease of native coronary artery without angina pectoris; E03.9 Hypothyroidism, unspecified; E66.01 Morbid (severe) obesity due to excess calories; Z68.37 Body mass index [BMI] 37.0-37.9, adult; I11.0 Hypertensive heart disease with heart failure; I48.0 Paroxysmal atrial fibrillation

== ENCOUNTER 2019-05-27 14:55 | Inpatient (IN) | payer OTHER ==
[~2019-05-27] VITALS: Ht 160 cm; Wt 93.2 kg
[~2019-05-27 14:55] MED LIST: ADALAT CC90 MG PO; ALDACTONE25 MG PO; BAYER CHEWABLE81 MG PO; BETAPACE 80 MG80 MG PO; CITRACAL + D E1 EACH PO; FIBER-TABS625 MG PO; FISH OIL 1,0001 CA1 PO; FUROSEMIDE20 MG PO; GLIPIZIDE10 MG PO; IMODIUM2 MG PO; JANUVIA100 MG PO; LEVO-T125 MCG PO; LEVOFLOXACIN500 MG PO; LEVOTHYROXINE75 MCG PO; LIPITOR80 MG PO; LISINOPRIL2.5 MG PO; MULTI-DAY VITAM1 TAB PO; OMEPRAZOLE20 M1 PO; OMNICEF300 MG PO; PREDNISONE10 MG PO; ROCALTROL0.5 MCG PO; TOPROL XL25 MG PO; XARELTO15 MG PO; ZITHROMAX500 MG PO
[2019-05-27 15:37] LABS: BASOPHILS 0.1 % (0-2); EOSINOPHILS 0.1 % (0-7); HEMATOCRIT 34.4 % (36.0-48.0); HEMOGLOBIN 10.9 g/dL (12-16); IMMATURE GRANULOCYTES 0.6 % (0-5); LYMPHOCYTES 4.8 % (15-50); MCH 26.3 pg (26.0-34.0); MCHC 31.7 g/dL (31.0-37.0); MCV 82.9 fL (80.0-100.0); MEAN PLATELET VOLUME 10.8 fL (7.4-10.4); NEUTROPHILS 92.4 % (40-80); PLATELET COUNT 255 10x3/uL (130-400); RBC 4.15 10x6/uL (4.00-5.40); RDW 16.2 % (11.5-14.5); WBC 16.6 10x3/uL (4.8-10.8)
[2019-05-27 16:12] LABS: APTT 28.9 SECONDS (22.8-39.4); INR 1.53 (0.85-1.17); PROTIME 18.2 SECONDS (11.6-15.0)
[2019-05-27 16:13] LABS: D-DIMER-QUANTITATIVE 3.4 ug/mLFEU (0.20-0.54)
[2019-05-27 16:32] LABS: ALBUMIN 2.9 g/dL (3.4-5.0); ALKALINE PHOSPHATASE 133 U/L (30-120); ALT (SGPT) 167 U/L (10-68); BILIRUBIN - TOTAL 0.72 mg/dL (0.2-1.3); CARBON DIOXIDE 29.7 mmol/L (21.0-32.0); CHLORIDE - SERUM 100 mmol/L (98-107); CKMB 1.9 U/L (0.0-3.6); CREATINE KINASE 309 UL (21-215); CREATININE - SERUM 1.4 mg/dL (0.6-1.3); MAGNESIUM - SERUM 1.2 mg/dL (1.8-2.4); POTASSIUM - SERUM 5.4 mmol/L (3.5-5.1); PRO BNP 4204 pg/mL (0-450); PROTEIN - SERUM 5.8 g/dL (6.4-8.2); SODIUM 140 mmol/L (136-145); TROPONIN-I 0.027 ng/mL (0.000-0.060); UREA NITROGEN 40 mg/dL (7-18); eGFR NON AFRICAN AMERICAN 38 mL/min (90-120)
[2019-05-27 16:35] LABS: CALC OSMOLALITY 297 mosm/kg (275-300); GLUCOSE 260 mg/dL (74-106)
[2019-05-27 16:40] LABS: CALCIUM 5.2 mg/dL (8.5-10.1)
[2019-05-27 19:00] VITALS: BP 116/54
--- NOTE | 2019-05-27 19:15 | NUR ---
REPORT CALLED TO [facility], STATES ROOM IS CURRENTLY DIRTY, WILL CALL WHEN CLEAN.
--- NOTE | 2019-05-27 19:22 | NUR ---
PT ASSISTED UP TO BEDSIDE COMMODE.
[2019-05-27 22:07] VITALS: BP 111/41; BMI 39.9
--- NOTE | 2019-05-27 22:25 | NUR ---
PT ARRIVED BY BED FROM ER. REPORT RECIEVED. INITIAL VSS, NO S/S OF RT DISTRESS. RR EVEN AND UNLABORED. O2 SAT 93 ON 3L. BILAT LOWER EXTREMETIES SWOLLEN, +3 PITTING. FSBS 435. PT ON LOW SLIDING SCALE REGULAR INSULIN. 12UNITS GIVEN AND WORK ORDER CLERK FIELD ACCOUNT DIRECTOR NOTIFIED. WORK ORDER CLERK ORDERED INTERMEDIATE SLIDING SCALE AND Q4 FSBS. PT NOTIFIED ABOUT CHANGES. ADMISSION ASSESSMENT COMPLETED. PT IS A GOOD HISTORIAN. HR 52, SR ON TELEMETRY. PT DENIES ANY FURTHER NEEDS AT THIS TIME. WILL CPOC. CL WITHIN REACH, BED IN LOW, SR UP X2. WILL CPOC.
[2019-05-28] VITALS: BP 129/54
[2019-05-28 04:00] VITALS: BP 147/60
[2019-05-28 07:08] LABS: BASOPHILS 0.1 % (0-2); EOSINOPHILS 0.1 % (0-7); HEMATOCRIT 31.6 % (36.0-48.0); IMMATURE GRANULOCYTES 0.6 % (0-5); LYMPHOCYTES 11.6 % (15-50); MCHC 31.6 g/dL (31.0-37.0); MCV 82.3 fL (80.0-100.0); MEAN PLATELET VOLUME 10.7 fL (7.4-10.4); MONOCYTES 7.3 % (2-11); NEUTROPHILS 80.3 % (40-80); PLATELET COUNT 234 10x3/uL (130-400); RBC 3.84 10x6/uL (4.00-5.40)
[2019-05-28 07:12] LABS: WBC 11.4 10x3/uL (4.8-10.8)
[2019-05-28 07:14] LABS: ALBUMIN 2.6 g/dL (3.4-5.0); BILIRUBIN - TOTAL 0.41 mg/dL (0.2-1.3); CREATININE - SERUM 1.5 mg/dL (0.6-1.3); PROTEIN - SERUM 5.8 g/dL (6.4-8.2)
[2019-05-28 07:30] LABS: CALCIUM 5.3 mg/dL (8.5-10.1)
--- NOTE | 2019-05-28 07:57 | NUR ---
RECIVED REPORT. AKNOWLEDGED LOW BLOOD SUGAR OF 59. GLUCOSE GIVEN ORDERED. WILL RECHECK BLOOD SUGAR AT 0805. PATIENT IS RESTING IN BED ON HER BACK NOW.
[2019-05-28 09:09] VITALS: BP 151/82
--- NOTE | 2019-05-28 09:12 | NUR ---
RECHECKED BLOOD SUGAR. IT IS NOW 161.
--- NOTE | 2019-05-28 12:33 | NUR ---
BLOOD SUGAR WAS 177, AND THE SCALE CALLED FOR 4 UNITS, HOWEVER, SHE WANTED 2 UNITS BECAUSE HER BLOOD SUGAR DROPPED EARLIER.
[2019-05-28 12:34] VITALS: BP 134/74
--- NOTE | 2019-05-28 12:45 | NUR ---
REPORTED CALCIUM AND BLOOD SUGARS TO DR TONEY. ALSO REPORTED THE PATIENT C/O HER HANDS CRAMPING.
[2019-05-28 14:15] VITALS: BMI 39.8
[2019-05-28 16:45] VITALS: BP 131/70
--- NOTE | 2019-05-28 19:40 | NUR ---
EVENING ROUNDS COMPLETED. AAOX4, AFVSS, NO S/S OF RT DISTRESS. 3L NC 95% O2SAT. IV CALCIUM ORDERED. FOR 1800, ALTHOUGH NOT INFUSING AT THIS TIME. DAY SHIFT NURSE STATES IV ATBX STILL INFUSING. WILL ADMINITER CALCIUM WHEN ATX IS COMPLETED. PT STATES IV SITE IS BURNING, ALTHOUGH PT HAS REFUSE PLACEMENT OF ANOTHER PIV. IV FLUSHED. PT DENIES ANY FURTHER NEEDS AT THIS TIME. WILL CPOC. CL WITHIN REACH, BED IN LOW, SR UP X2.
[2019-05-28 20:00] VITALS: BP 136/72
[2019-05-29] VITALS: BP 152/65
[2019-05-29 04:00] VITALS: BP 134/69
[2019-05-29 06:09] LABS: BASOPHILS 0.2 % (0-2); EOSINOPHILS 1.1 % (0-7); HEMATOCRIT 37.9 % (36.0-48.0); HEMOGLOBIN 11.9 g/dL (12-16); IMMATURE GRANULOCYTES 0.6 % (0-5); LYMPHOCYTES 14.7 % (15-50); MCH 26.2 pg (26.0-34.0); MCHC 31.4 g/dL (31.0-37.0); MCV 83.3 fL (80.0-100.0); MEAN PLATELET VOLUME 11.1 fL (7.4-10.4); MONOCYTES 5.9 % (2-11); NEUTROPHILS 77.5 % (40-80); RBC 4.55 10x6/uL (4.00-5.40); WBC 12.3 10x3/uL (4.8-10.8)
[2019-05-29 06:17] LABS: PLATELET COUNT 293 10x3/uL (130-400)
[2019-05-29 06:36] LABS: ALBUMIN 2.8 g/dL (3.4-5.0); BILIRUBIN - TOTAL 0.71 mg/dL (0.2-1.3); CREATININE - SERUM 1.5 mg/dL (0.6-1.3); POTASSIUM - SERUM 3.6 mmol/L (3.5-5.1); PROTEIN - SERUM 6.2 g/dL (6.4-8.2)
[2019-05-29 06:52] LABS: ANION GAP 9.9 mmol/L (8-16); CARBON DIOXIDE 38.7 mmol/L (21.0-32.0)
[2019-05-29 06:58] LABS: CALCIUM 6.1 mg/dL (8.5-10.1)
--- NOTE | 2019-05-29 07:30 | NUR ---
PT RECEIVED SITTING ON SIDE OF BED WORKING CROSSWORD PUZZLE. MAG LEVEL 1.0, MONA SUAREZ NOTIFIED AND FOLLOWING ELECTROLYTE ORDERS. DID HAVE RUN OF VTA. CARDIOLOGY CONSULTED AND DANDRE SUAREZ ON FLOOR.
[2019-05-29 10:20] VITALS: BP 119/76
--- NOTE | 2019-05-29 13:15 | NUR ---
PT WITH MAG LEVEL 1.0 THIS MORNING. TREATED WITH 800 MG ORAL, REDRAW LAB SHOWS 1.0 STILL. INFUSING IV MAG NOW PER ORDER AFTER TALKING TO MONA SUAREZ. WILL CHECK AGAIN WHEN FINISHED.
[2019-05-29 13:49] VITALS: BP 154/96
[2019-05-29 14:57] LABS: APPEARANCE CLEAR (CLEAR); BILIRUBIN NEGATIVE (NEGATIVE); COLOR YELLOW (YELLOW); GLUCOSE NEGATIVE (NEGATIVE); KETONE NEGATIVE (NEGATIVE); NITRITE NEGATIVE (NEGATIVE); PROTEIN NEGATIVE (NEGATIVE); UROBILINOGEN NORMAL (NORMAL)
[2019-05-29 16:26] VITALS: BP 131/76
--- NOTE | 2019-05-29 19:10 | NUR ---
BEDSIDE REPORT RECIEVED FROM DAY SHIFT, PT CARE ASSUMED. INTRODUCED SELF AND WROTE NAME ON BOARD. PT SITTING UP IN BED WITH EYES CLOSED, RR EVEN AND NONLABORED, NO S/S OF DISTRESS, AROUSES EASILY TO VOICE. ORIENTED X4, DENIES ANY NEEDS AT THIS TIME. BED IN LOWEST POSITION, SR X2, CALL LIGHT WITHIN REACH. WILL CONTINUE TO MONITOR.
[2019-05-29 20:00] VITALS: BP 158/70
[2019-05-30] VITALS: BP 145/60
[2019-05-30 04:00] VITALS: BP 148/71
[2019-05-30 05:38] LABS: BASOPHILS 0.2 % (0-2); EOSINOPHILS 1.2 % (0-7); HEMATOCRIT 35.5 % (36.0-48.0); HEMOGLOBIN 11.1 g/dL (12-16); IMMATURE GRANULOCYTES 0.7 % (0-5); LYMPHOCYTES 14.2 % (15-50); MCH 25.9 pg (26.0-34.0); MCHC 31.3 g/dL (31.0-37.0); MCV 82.9 fL (80.0-100.0); MEAN PLATELET VOLUME 10.5 fL (7.4-10.4); MONOCYTES 5.5 % (2-11); NEUTROPHILS 78.2 % (40-80); RBC 4.28 10x6/uL (4.00-5.40); RDW 15.7 % (11.5-14.5)
[2019-05-30 05:44] LABS: PLATELET COUNT 218 10x3/uL (130-400); WBC 9.1 10x3/uL (4.8-10.8)
[2019-05-30 06:06] LABS: ALBUMIN 2.3 g/dL (3.4-5.0); ANION GAP 9.5 mmol/L (8-16); BILIRUBIN - TOTAL 0.63 mg/dL (0.2-1.3); CARBON DIOXIDE 38.9 mmol/L (21.0-32.0); MAGNESIUM - SERUM 1.8 mg/dL (1.8-2.4); POTASSIUM - SERUM 3.4 mmol/L (3.5-5.1); PROTEIN - SERUM 5.5 g/dL (6.4-8.2)
[2019-05-30 06:07] LABS: CREATININE - SERUM 1.1 mg/dL (0.6-1.3)
[2019-05-30 06:08] LABS: CALCIUM 6.4 mg/dL (8.5-10.1)
--- NOTE | 2019-05-30 07:00 | NUR ---
PT RESTING, EYES CLOSED. RR EVEN AND UNLABORED. NO DISTRESS NOTED. BED IN LOWEST POSITION. CALL LIGHT WITHIN REACH. WILL CONTINUE TO MONITOR.
[2019-05-30 07:36] VITALS: Ht 160 cm; Wt 93.2 kg
[2019-05-30 09:52] VITALS: BP 143/67
--- NOTE | 2019-05-30 11:00 | NUR ---
PT HR RUNNING FROM 150-160 CONTROLLED AFIB. LIZ MADE AWARE. ORDER FOR SOTALOL RECIEVED. WILL CONTINUE TO MONITOR.
[2019-05-30 12:00] VITALS: BP 155/97
[2019-05-30 17:04] VITALS: BP 149/87
--- NOTE | 2019-05-30 19:10 | NUR ---
BEDSIDE REPORT RECEIVED FROM DAY SHIFT, PT CARE ASSUMED. WROTE NAME ON BOARD. PT SITTING UP IN BED, WATCHING TV, AAOX4. DENIES ANY NEEDS AT THIS TIME. BED IN LOWEST POSITION, SR X2, CALL LIGHT WITHIN REACH. WILL CONTINUE TO MONITOR.
[2019-05-30 20:00] VITALS: BP 144/69
[2019-05-31] VITALS: BP 132/81
[2019-05-31 04:00] VITALS: BP 161/91
[2019-05-31 05:42] LABS: BASOPHILS 0.1 % (0-2); EOSINOPHILS 0.3 % (0-7); HEMATOCRIT 35.3 % (36.0-48.0); HEMOGLOBIN 11.2 g/dL (12-16); IMMATURE GRANULOCYTES 0.4 % (0-5); LYMPHOCYTES 10.7 % (15-50); MCH 26.3 pg (26.0-34.0); MCHC 31.7 g/dL (31.0-37.0); MCV 82.9 fL (80.0-100.0); MEAN PLATELET VOLUME 10.4 fL (7.4-10.4); MONOCYTES 5.2 % (2-11); NEUTROPHILS 83.3 % (40-80); PLATELET COUNT 216 10x3/uL (130-400); RBC 4.26 10x6/uL (4.00-5.40); RDW 15.4 % (11.5-14.5); WBC 10.7 10x3/uL (4.8-10.8)
[2019-05-31 05:54] LABS: ALBUMIN 2.4 g/dL (3.4-5.0); BILIRUBIN - TOTAL 0.45 mg/dL (0.2-1.3); CREATININE - SERUM 1.3 mg/dL (0.6-1.3); MAGNESIUM - SERUM 1.7 mg/dL (1.8-2.4); PROTEIN - SERUM 5.7 g/dL (6.4-8.2)
[2019-05-31 06:05] LABS: ANION GAP 3.7 mmol/L (8-16); CALCIUM 6.4 mg/dL (8.5-10.1); CARBON DIOXIDE 41.3 mmol/L (21.0-32.0)
[2019-05-31 08:36] VITALS: BP 147/92
[2019-05-31 12:22] VITALS: BP 140/70
--- NOTE | 2019-05-31 17:00 | NUR ---
I have reviewed this patient and I concur with the Shift Assessment completed by the Licensed Practical Nurse today this shift.
[2019-05-31 17:24] VITALS: BP 137/88
--- NOTE | 2019-05-31 19:33 | NUR ---
PT IS IN CONTACT ISOLATION BED LOW AND LOCKED PT STATES NO NEEDS IV IS OUT WITH MULTIPLE ATTEMPTS TO REPLACE TODAY FAILED PRIVIOUS NURSE STATES SHE IS NOTIFING MD
[2019-05-31 20:00] VITALS: BP 165/85
[2019-06-01] VITALS: BP 143/78
[2019-06-01 04:00] VITALS: BP 157/80
--- NOTE | 2019-06-01 04:56 | NUR ---
I have reviewed this patient and I concur with the Shift Assessment completed by the Licensed Practical Nurse today this shift.
[2019-06-01 06:34] LABS: BASOPHILS 0.1 % (0-2); EOSINOPHILS 0.6 % (0-7); HEMATOCRIT 37.5 % (36.0-48.0); HEMOGLOBIN 11.9 g/dL (12-16); IMMATURE GRANULOCYTES 0.4 % (0-5); LYMPHOCYTES 10.1 % (15-50); MCH 26.7 pg (26.0-34.0); MCHC 31.7 g/dL (31.0-37.0); MCV 84.1 fL (80.0-100.0); MEAN PLATELET VOLUME 11.1 fL (7.4-10.4); MONOCYTES 4.9 % (2-11); NEUTROPHILS 83.9 % (40-80); RBC 4.46 10x6/uL (4.00-5.40); RDW 15.4 % (11.5-14.5); WBC 12.2 10x3/uL (4.8-10.8)
[2019-06-01 06:56] LABS: PLATELET COUNT 275 10x3/uL (130-400)
[2019-06-01 07:04] LABS: ALBUMIN 2.7 g/dL (3.4-5.0); ANION GAP 8.7 mmol/L (8-16); BILIRUBIN - TOTAL 0.45 mg/dL (0.2-1.3); CALCIUM 7.1 mg/dL (8.5-10.1); CARBON DIOXIDE 39.3 mmol/L (21.0-32.0); CREATININE - SERUM 1.3 mg/dL (0.6-1.3); MAGNESIUM - SERUM 1.7 mg/dL (1.8-2.4); PROTEIN - SERUM 6.5 g/dL (6.4-8.2)
--- NOTE | 2019-06-01 11:26 | NUR ---
I have reviewed this patient and I concur with the Shift Assessment completed by the Licensed Practical Nurse today this shift.
--- NOTE | 2019-06-01 11:36 | NUR ---
REHAB PRESCREENING CONSULT RECIEVED AND THE CHART HAS BEEN REVIEWED. SHE HAS MANAGED MEDICARE WITH [employer] AND WILL REQUIRE A PREAUTH FOR INPATIENT REHAB. KARLA AVALOS RN CLINICAL LIAISON, REHAB
[2019-06-01] MEDS ORDERED: ZITHROMAX500 MG PO (15:02)
--- NOTE | 2019-06-01 16:53 | MORECARE ---
CASE MANAGEMENT DISCHARGE SUMMARY PATIENT: ROSE OLSON UNIT: [id number] ADM DATE: 05/27/19 AGE: 78 : 38 SEX: F ROOM/BED: D.2138 AUTHOR: ZACKARY DEL VALLE PHYSICIAN: REFERRING PHYSICIAN: YASMEEN JENKINS MD DATE OF SERVICE: 06/01/19 Discharge Plan Patient Name: ROSE OLSON Facility: [facility]:[place] : 1940 Planned Disposition: Home with Home Health Anticipated Discharge Date: 06/01/19 Discharge Date: Expected LOS: 5 Initial Reviewer: [email or web address] Initial Review Date: 05/27/2019 Generated: 06/01/19 5:52 pm DCPIA - Discharge Planning Initial Assessment Updated by [email or web address]: Meño Frausto on 06/01/19 4:52 pm * Is the patient Alert and Oriented? Yes * How many steps to enter\exit or inside your home? NONE * PCP DR. BOSWELL * Pharmacy [facility] * Preadmission Environment Home Alone * ADLs Independent * Equipment Cane Nebulizer Oxygen Rolling Walker * Other Equipment ROLLATOR WALKER, HOME AND PORTABLE OXYGEN [facility] * List name and contact numbers for known caregivers / representatives who currently or will assist patient after discharge: TRAY ADAME, SISTER, * Verbal permission to speak to the caregivers and representatives has been obtained from the patient. Yes * Community resources currently utilized Home Health * Please name any agencies selected above. [facility] * Additional services required to return to the preadmission environment? No * Can the patient safely return to the preadmission environment? Yes * Has this patient been hospitalized within the prior 30 days at any hospital? Yes External Providers [facility] Next Contact Date: 06/01/2019 Service Request Date: Service Type: Resolution: Reviewer: Comments: Patient Name: ROSE OLSON Page [phone] at 1653 All edits/amendments must be made on the electronic document DICTATION DATE: 06/01/191651 TERADATA ARCHITECT: BETHANIE 06/01/191651 RPT#: [id number] DC DATE: STATUS: ADM IN [facility] [address] [facility] [place] [address] END OF REPORT
--- NOTE | 2019-06-01 17:00 | MORECARE ---
CASE MANAGEMENT DISCHARGE SUMMARY PATIENT: ROSE OLSON UNIT: [id number] ADM DATE: 05/27/19 AGE: 78 : 38 SEX: F ROOM/BED: D.5677 AUTHOR: IVON,DOC PHYSICIAN: REFERRING PHYSICIAN: YASMEEN JENKINS MD DATE OF SERVICE: 06/01/19 Discharge Plan Patient Name: ROSE OLSON Facility: [facility]:[place] : 1940 Planned Disposition: Home with Home Health Anticipated Discharge Date: 06/01/19 Discharge Date: Expected LOS: 5 Initial Reviewer: [email or web address] Initial Review Date: 05/27/2019 Generated: 06/01/19 6:00 pm Comments DCP- Discharge Planning Updated by [email or web address]: Meño Frausto on 06/01/19 3:[address] Patient Name: ROSE OLSON Admission Status: ER Accout number: [id number] Admission Date: 05-27-2019 : 1940 Admission Diagnosis: Attending: YASMEEN JENKINS Current LOS: 5 Anticipated DC Date: 06-01-2019 Planned Disposition: Home with Home Health Primary Insurance: [email or web address] Discharge Planning Comments: CM RECEIVED FAX ODER FROM [facility], OBTAINED DR. MORA SIGNATURE FOR NEBULIZER ORDER AND FAXED BACK TO [facility] FOR NEBLULIZER DELIVERY TODAY. CRYSTAL COULD NOT TELL CM WHAT HAPPENED TO THE PREVIOUS ORDER FOR NEBULIZER STATING SHE HAD NO RECORD OF IT. THEY WILL ENSURE DELIVERY OF NEBULIZER TODAY. CM RECEIVED ORDER FOR INPATIENT REHAB PRESCREENING AND LATER, DISCHARGE ORDER HOME. CM MET WITH PT IN ROOM TO DISCUSS DISCHARGE PLANNING AND NEEDS. PT REPORTS LIVING AT HOME INDEPENDENTLY AND ALONE. PT HAS CANE, ROLLATOR WALKER, HOME AND PORTABLE OXYGEN AND NEBULIZER FROM [facility]. PT HAS HOME HEALTH WITH [facility] FOR NURSING AND PHYSICAL THERAPY. CM DISCUSSED AVAILABILITY OF HOME HEALTH, REHAB SERVICES AND MEDICAL EQUIPMENT. PT DENIES NEED OF INPATIENT REHAB AND WANTS TO GO HOME. PT REPORTS HER SISTER IS HERE TO PICK HER UP FOR DISCHARGE HOME TODAY. IMPORTANT MESSAGE FROM MEDICARE PROVIDED AND EXPLAINED.CHOICE FOR [facility] SIGNED. CM PROVIDED INFORMATION TO PT ON [facility]AREGIVER F[facility]RICIO THROUGH [facility] ON [address]. CM CALLED [facility], , SPOKE TO AMALIA WHO TOOK REFERRAL INFORMATION AND WILL PLACE PT BACK ON SCHEDULE FOR RESUMPTION OF HOME HEALTH CARE FOR TOMORROW. CM FAXED DISCHARGE INFORMATION TO [facility] AT [phone]. SOUP PERSON NURSE NOTIFIED. Railcar Brake Operator: Meño Frausto DCPIA - Discharge Planning Initial Assessment Updated by KASIA: Meño Frausto on 06/01/19 4:52 pm * Is the patient Alert and Oriented? Yes * How many steps to enter\exit or inside your home? NONE * PCP DR. BOSWELL * [facility] * Preadmission Environment Home Alone * ADLs Independent * Equipment Cane Nebulizer Oxygen Rolling Walker * Other Equipment ROLLATOR WALKER, HOME AND PORTABLE OXYGEN [facility] * List name and contact numbers for known caregivers / representatives who currently or will assist patient after discharge: TRAY ADAME, SISTER, * Verbal permission to speak to the caregivers and representatives has been obtained from the patient. Yes * Community resources currently utilized Home Health * Please name any agencies selected above. [facility] * Additional services required to return to the preadmission environment? No * Can the patient safely return to the preadmission environment? Yes * Has this patient been hospitalized within the prior 30 days at any hospital? Yes Coverage Notice Reviewer: [email or web address] Cordell Frausto Notice Issued Date-Time: 06/01/2019 16:35 Notice Type: IM Discharge Notice Notice Delivered To: Patient Relationship to Patient: Pit Clerk Name: Delivery Method: HAND - Hand Delivered Nell Days: Prior Verbal Notification: Recipient Understood Notice: Yes Recipient Signature: Yes Med Rec Note Co-signed by Attending: Coverage Notice Comment: Reviewer: [email or web address] Cordell Frausto Notice Issued Date-Time: 06/01/2019 16:35 Notice Type: Patient Choice Letter Notice Delivered To: Patient Relationship to Patient: Pit Clerk Name: Delivery Method: HAND - Hand Delivered Nell Days: Prior Verbal Notification: Recipient Understood Notice: Yes Recipient Signature: Yes Med Rec Note Co-signed by Attending: Coverage Notice Comment: [facility] Last DP export: 06/01/19 3:53 p Patient Name: ROSE OLSON Page [phone] at 1700 All edits/amendments must be made on the electronic document DICTATION DATE: 06/01/191699 VICE PRESIDENT OF FINANCE: BETHANIE 06/01/191699 RPT#: [id number] DC DATE: STATUS: ADM IN [facility] [address] [place] [address] END OF REPORT
--- NOTE | 2019-06-01 17:21 | NUR ---
OT NOTE: PT COMPLETED EOB SITTING BALANCE WITH SPV/MOD I. PT COMPLETED SEVERAL SIT TO STANDS . PT REQUIRED FREQUENT REST BREAKS AND BREATHING TECHNIQUES. PT COMPLETED BUE AROM EXS AT EOB FOR INCREASED AX TOLERANCE WITH FUNCTIONAL AXS. PT COMPLETED FACE WASHING AT EOB WITH SET UP. PT STATED SHE MAY GO HOME TODAY. [phone] THANK YOU,TANIA PAYNE
[2019-06-01] MEDS ORDERED: PULMICORT0.25 MG/1 INH (17:22)
[2019-06-01] MEDS ORDERED: ATROVENT 0.02%2.5 ML UPD (17:22)
[2019-06-01] MEDS ORDERED: BROVANA15 MCG/2 M INH (17:22)
--- NOTE | 2019-06-01 17:27 | NUR ---
NEBULIZER MEDS CALLED TO [facility] [place], I TALKED TO JUAN PABLO, PHARMACIST.
--- NOTE | 2019-06-01 17:30 | NUR ---
PT HAS NO IV. TELEMETRY DC'D AND RETURNED TO MONITOR STATION. DISCHARGE INSTRUCTIONS GIVEN AND EXPLAINED TO PT. PT HAS NO FURTHER QUESTIONS. CHART COPY SIGNED. PT PLACED ON PORTABLE HOME O2.
--- NOTE | 2019-06-01 17:50 | NUR ---
PT TAKEN DOWN VIA WC BY THIS NURSE AND LEFT WITH FRIEND IN PERSONAL CAR.
--- NOTE | 2019-06-02 08:42 | MORECARE ---
CASE MANAGEMENT DISCHARGE SUMMARY PATIENT: ROSE OLSON UNIT: [id number] ADM DATE: 05/27/19 AGE: 78 : 38 SEX: F ROOM/BED: D.5978 AUTHOR: IVON,DOC PHYSICIAN: REFERRING PHYSICIAN: YASMEEN JENKINS MD DATE OF SERVICE: 06/02/19 Discharge Plan Patient Name: ROSE OLSON Facility: [facility]:[place] : 1940 Planned Disposition: Home with Home Health Anticipated Discharge Date: 06/01/19 Discharge Date: 06/01/2019 Expected LOS: 5 Initial Reviewer: [email or web address] Initial Review Date: 05/27/2019 Generated: 06/02/19 9:42 am Comments DCP- Discharge Planning Updated by [email or web address]: Meño Frausto on 06/02/19 7:[address] Patient Name: ROSE OLSON Admission Status: ER Accout number: [id number] Admission Date: 05-27-2019 : 1940 Admission Diagnosis: Attending: YASMEEN JENKINS Current LOS: 5 Anticipated DC Date: 06-01-2019 Planned Disposition: Home with Home Health Primary Insurance: [employer] PLANNED EXTERNAL PROVIDER: [facility] Discharge Planning Comments: CM RECEIVED FAX ODER FROM [facility], OBTAINED DR. MORA SIGNATURE FOR NEBULIZER ORDER AND FAXED BACK TO [facility] FOR NEBLULIZER DELIVERY TODAY. [facility] COULD NOT TELL CM WHAT HAPPENED TO THE PREVIOUS ORDER FOR NEBULIZER STATING SHE HAD NO RECORD OF IT. THEY WILL ENSURE DELIVERY OF NEBULIZER TODAY. CM RECEIVED ORDER FOR INPATIENT REHAB PRESCREENING AND LATER, DISCHARGE ORDER HOME. CM MET WITH PT IN ROOM TO DISCUSS DISCHARGE PLANNING AND NEEDS. PT REPORTS LIVING AT HOME INDEPENDENTLY AND ALONE. PT HAS CANE, ROLLATOR WALKER, HOME AND PORTABLE OXYGEN AND NEBULIZER FROM [facility]. PT HAS HOME HEALTH WITH [facility] FOR NURSING AND PHYSICAL THERAPY. CM DISCUSSED AVAILABILITY OF HOME HEALTH, REHAB SERVICES AND MEDICAL EQUIPMENT. PT DENIES NEED OF INPATIENT REHAB AND WANTS TO GO HOME. PT REPORTS HER SISTER IS HERE TO PICK HER UP FOR DISCHARGE HOME TODAY. IMPORTANT MESSAGE FROM MEDICARE PROVIDED AND EXPLAINED.CHOICE FOR [facility] SIGNED. CM PROVIDED INFORMATION TO PT ON [facility] THROUGH [facility] [address]. CM CALLED [facility], , SPOKE TO AMALIA WHO TOOK REFERRAL INFORMATION AND WILL PLACE PT BACK ON SCHEDULE FOR RESUMPTION OF HOME HEALTH CARE FOR TOMORROW. LAUREN FAXED DISCHARGE INFORMATION TO [facility] AT [phone]. INTERIOR PANELER NURSE NOTIFIED. Night Shift Manager: Meño Frausto DCPIA - Discharge Planning Initial Assessment Updated by KASIA: Meño Frausto on 06/01/19 4:52 pm * Is the patient Alert and Oriented? Yes * How many steps to enter\exit or inside your home? NONE * PCP DR. BOSWELL * Pharmacy [facility] * Preadmission Environment Home Alone * ADLs Independent * Equipment Cane Nebulizer Oxygen Rolling Walker * Other Equipment ROLLATOR WALKER, HOME AND PORTABLE OXYGEN [facility] * List name and contact numbers for known caregivers / representatives who currently or will assist patient after discharge: TRAY ADAME, SISTER, * Verbal permission to speak to the caregivers and representatives has been obtained from the patient. Yes * Community resources currently utilized Home Health * Please name any agencies selected above. [facility] * Additional services required to return to the preadmission environment? No * Can the patient safely return to the preadmission environment? Yes * Has this patient been hospitalized within the prior 30 days at any hospital? Yes External Providers External Provider: [facility] Next Contact Date: 06/02/2019 Service Request Date: Service Type: Resolution: Reviewer: Comments: Coverage Notice Reviewer: [email or web address] Cordell Frausto Notice Issued Date-Time: 06/01/2019 16:35 Notice Type: IM Discharge Notice Notice Delivered To: Patient Relationship to Patient: Radio Rigger Name: Delivery Method: HAND - Hand Delivered Nell Days: Prior Verbal Notification: Recipient Understood Notice: Yes Recipient Signature: Yes Med Rec Note Co-signed by Attending: Coverage Notice Comment: Reviewer: [email or web address] Cordell Frausto Notice Issued Date-Time: 06/01/2019 16:35 Notice Type: Patient Choice Letter Notice Delivered To: Patient Relationship to Patient: Radio Rigger Name: Delivery Method: HAND - Hand Delivered Nell Days: Prior Verbal Notification: Recipient Understood Notice: Yes Recipient Signature: Yes Med Rec Note Co-signed by Attending: Coverage Notice Comment: [facility] Last DP export: 06/01/19 4:00 p Patient Name: ROSE OLSON Page [phone] at 0842 All edits/amendments must be made on the electronic document DICTATION DATE: 06/02/19841 CAT SITTER: BETHANIE 06/02/19841 RPT#: [id number] DC DATE:06/01/19 STATUS: DIS IN [facility] [address] [place] [address] END OF REPORT
== END 2019-06-01 17:52 | disposition home health service (06) | DRG 291 ==
LOC: D.ER 14:55 → D.M2 18:49
PROVIDERS: Family Medicine; ADMIT Family Medicine; ATTEND Family Medicine
DX: I13.0 Hypertensive heart and chronic kidney disease with heart failure and stage 1 through stage 4 chronic kidney disease, or unspecified chronic kidney disease (principal); J18.9 Pneumonia, unspecified organism; I50.33 Acute on chronic diastolic (congestive) heart failure; J98.11 Atelectasis; J96.11 Chronic respiratory failure with hypoxia; N18.9 Chronic kidney disease, unspecified; E11.22 Type 2 diabetes mellitus with diabetic chronic kidney disease; E11.65 Type 2 diabetes mellitus with hyperglycemia; E78.5 Hyperlipidemia, unspecified; E03.9 Hypothyroidism, unspecified; K21.9 Gastro-esophageal reflux disease without esophagitis; E83.42 Hypomagnesemia; E83.51 Hypocalcemia; I48.0 Paroxysmal atrial fibrillation; E87.6 Hypokalemia; E11.21 Type 2 diabetes mellitus with diabetic nephropathy

== ENCOUNTER 2019-06-04 22:44 | Inpatient (IN) | payer OTHER ==
[~2019-06-04] VITALS: Ht 160 cm; Wt 103.4 kg
--- NOTE | ~2019-06-04 | HEMODYNAMI ---
PATIENT:ROSE OLSON MEDICAL RECORD: [id number] : 36 [facility] [id number] ADMISSION DATE: 06/05/19 Generatedon:06/08/201916:40 Patient name: ROSE OLSON Patient #: [id number] SSN: [id number] : 1940 Date of study: 06/08/2019 Page: Of Hemodynamic Procedure Report Patient Data Patient Demographics Procedure consent was obtained First Name: ROSE Gender: Female Last Name: WHITNEY : 1940 Patient #: [id number] Age: 78 year(s) Race: SSN: [id number] Additional ID: [id number] Contact details Address: [address] [place] [address] State: [place] City: [place] Zip code: [address] Past Medical History Allergies: No known allergies Admission Admission Data Admission Date: 06/05/2019 Admission Time: 1:24 Arrival Date: 06/08/2019 Arrival Time: 0:00 Admit Source: Other Insurance Payor: Private Room #: D.2137 health insurance [facility] #: [id number] Height (in.): 62.99 BSA: 2.05 (m2) Height (cm.): 160 BMI: 40.62 (kg/m2) Weight (lbs.): 229.28 Weight (kg.): 104 Lab Results Lab Result Date: 06/08/2019 Lab Result Time: 0:00 Biochemistry Name Units Result Min Max BUN mg/dl 22 --(----)-* 7 18 Creatinine mg/dl 1.4 --(----)*- 0.6 1.3 eGFR ml/min 38 *-(----)-- 90 120 NONAFRICAN Troponin I ng/ml 0.037 --(--*-)-- 0 0.06 CBC Name Units Result Min Max Hemoglobin g/dl 11.8 *-(----)-- 13.5 17.5 Procedure Procedure Types Cath Procedure Diagnostic Procedure [facility] w/Coronaries FFR/IVUS FFR Initial FFR Additional Sedation Charges Moderate Sedation up to 15 minutes PCI Procedure Coronary Stent Coronary Stent Initial x2 Hemochron ACT Test Procedure Description Procedure Date Procedure Date: 06/08/2019 Procedure Start Time: 16:16 Procedure End Time: 16:35 Procedure Staff Name Function Ayaan Singh MD Performing Physician Renetta Soto RN Nurse Barb Houston RT Monitor Pina Pineda RT Scrub Indication Elevated troponin Procedure Data Cath Procedure Fluoroscopy Diagnostic fluoroscopy Total fluoroscopy Time: 4.2 time: 4.2 min min Diagnostic fluoroscopy Total fluoroscopy dose: 845 dose: 845 mGy mGy Contrast Material Contrast Material Type Amount (ml) Isovue 300 91 Entry Location Entry Primary Successful Side Size Upsize Upsize Entry Closure Sahu ccessful Closure Location (Fr) 1 (Fr) 2 (Fr) Remarks Device Remarks Radial Right 6 Fr Mechanical artery Short Compression Estimated blood loss: 10 ml Diagnostic catheters Device Type Used For End Catheter Placement DIAGNOSTIC [place] 110cm 5 Procedure Fr catheter ([id number]) Procedure Complications No complications Procedure Medications Medication Administration Route Dosage 0.9% NaCl I.V. 100 ml/hr Oxygen etCO2 Nasal cannula 2 l/min Lidocaine 2% added to field 20 Heparin Flush Bag added to field 2 bags (1000units/500ml NS) Radial Cocktail added to field 1 syringe (Verapamil 2mg/Nitro 400mcg/Heparin 1500units) Versed I.V. 1 mg Fentanyl I.V. 25 mcg Heparin Bolus I.V. 4000 units Integrilin (Bolus I.V. 9.5 ml 2mg/ml) Integrilin (Bolus wasted 0.5 ml 2mg/ml) Plavix P.O. 600 mg Lopressor I.V. 10 mg Amiodarone I.V. (150mg/3mls) Hemodynamics Rest BSA: 2.05 (m2) HGB: 11.8 (g/dl) O2 Consumption: Estimated: 226.16 (ml/min) O2 Co nsumption indexed: Estimated:110.32 (ml/min/m) Heart Rate: 124 (bpm) Snapshots Pre Cath Intra NCS Post Cath Vital Signs Time Heart Resp SPO2 etCO2 NIBP (mmHg) Rhythm Pain Sedation Rate (ipm) (%) (mmHg) Status Level (bpm) 16:05:17 134 31 96 13 176/136(174) A-Fib 0 (11) 10(A) , No pain 16:09:45 123 26 96 0 161/91(115) A-Fib 0 (11) 10(A) , No pain 16:14:44 120 22 96 13 Measuring A-Fib 0 (11) 10(A) , No pain 16:15:13 142 21 95 13.7 155/90(107) A-Fib 0 (11) 9(A) , No pain 16:19:29 121 18 96 12.6 115/77(105) A-Fib 0 (11) 9(A) , No pain 16:23:43 100 20 97 12.6 133/78(98) A-Fib 0 (11) 9(A) , No pain 16:28:01 95 20 96 13.3 120/72(87) A-Fib 0 (11) 9(A) , No pain 16:32:17 100 22 98 14.1 114/76(97) A-Fib 0 (11) 10(A) , No pain Medications Time Medication Route Dose Verified Delivered Reason Not es Effectiveness by by 16:04:31 0.9% NaCl I.V. 100 Ayaan Renetta used for ml/hr Samantha Soto citrix systems administrator 16:04:41 Oxygen etCO2 2 l/min Ayaan Renetta used for Nasal Samantha Soto procedure cannula RN 16:04:45 Lidocaine 2% added 20ml Ayaan Ayaan for local to vial Samantha Singh MD anesthetic field 16:04:51 Heparin Flush added 2 bags Ayaan Kuo used for Bag to Samantha Singh MD procedure (1000units/500ml field NS) 16:05:06 Radial Cocktail added 1 Ayaan Ayaan used for (Verapamil to syringe Samantha Singh MD procedure 2mg/Nitro field 400mcg/Heparin 1500units) 16:09:22 Fentanyl I.V. 25 mcg Ayaan Renetta for sedation Samantha Soto RN 16:09:53 Versed I.V. 1 mg Ayaan Renetta for sedation Samantha Soto RN 16:25:21 Heparin Bolus I.V. 4000 Ayaan Renetta for ginette ified units Samantha Soto anticoagulation with Dr. MALINA Singh 16:25:35 Integrilin I.V. 9.5 ml Ayaan Renetta for (Bolus 2mg/ml) Samantha Soto antiplatelet RN therapy 16:25:44 Integrilin wasted 0.5 ml Ayaan Smithyla for (Bolus 2mg/ml) Samantha Soto antiplatelet RN therapy 16:25:48 Plavix P.O. 600 mg Ayaan Smithyla for Samantha Soto antiplatelet RN therapy 16:25:59 Lopressor I.V. 10 mg Ayaan Jackson Per physician Samantha Soto RN 16:26:11 Amiodarone I.V. Ayaan Smithyla Per physician (150mg/3mls) Samantha Soto RN Procedure Log Time Note 15:31:05 Arrival Date: 06/08/2019 12:00:00 AM 15:31:27 Admit Source: Other 15:31:32 Insurance Payor : Private health insurance 15:31:42 Patient Height : 62.99 inches 15:31:46 Patient Weight : 229.28 lbs 15:32:35 Lab Result : Hemoglobin 11.8 g/dl 15:32:35 Lab Result : eGFR NONAFRICAN 38 ml/min 15:32:35 Lab Result : Troponin T 0.037 ng/ml 15:32:35 Lab Result : BUN 22 mg/dl 15:32:35 Lab Result : Creatinine 1.4 mg/dl 15:33:25 Indication : Elevated troponin 15:33:35 Procedure Status Urgent Heart Cath (IP). 15:33:37 Renetta Soto RN sent for patient. Start room use. 15:33:39 Time tracking: Regular hours (M-F 7:00 - 5:00) 15:33:43 Plan of Care:Hemodynamics will remain stable., Cardiac rhythm will remain stable., Comfort level will be maintained., Respiratory function will remain adequate., Patient/ family verbilizes understanding of procedure., Procedure tolerated without complication., Recovers from procedure without complications.. 15:52:20 Informed consent obtained and on chart 15:57:06 Patient received from Med II to CCL 2 Alert and oriented. Tansferred to table in Supine position. 15:57:09 Warm blankets applied, and dylan hugger turned on for patient comfort. 15:57:09 Correct patient and procedure confirmed by team. 15:57:12 ECG and BP/O2 sat monitors applied to patient. 16:02:57 H&P Date Dictated: 06/08/2019 Within 30 days and on chart.. 16:03:46 ACC Patient presents with Stable Angina CCS Anginal Class 4--Inability to carry out any physical activity w/o angina. Angina may occur at rest. 16:04:02 Vital chart was started 16:04:03 Baseline sample Acquired. 16:04:17 Rhythm: atrial fibrillation 16:04:19 Full Disclosure recording started 16:04:19 - 16:04:20 Pre-procedure instructions explained to patient. 16:04:21 Pre-op teaching completed and patient verbalized understanding. 16:04:28 Family unavailable. 16:04:31 0.9% NaCl 100 ml/hr I.V. was administered by Renetta Soto RN; used for procedure; Verbal order read back and verified. 16:04:32 Patient NPO since Midnight. 16:04:41 Oxygen 2 l/min etCO2 Nasal cannula was administered by Renetta Soto RN ; used for procedure; Verbal order read back and verified. 16:04:45 Lidocaine 2% 20ml vial added to field was administered by Ayaan Singh MD; for local anesthetic; Verbal order read back and verified. 16:04:47 Patient allergic to No known allergies 16:04:51 Heparin Flush Bag (1000units/500ml NS) 2 bags added to field was administered by Ayaan Singh MD; used for procedure; Verbal order read back and verified. 16:04:52 Is the patient allergic to Iodine/contrast media? No. 16:04:56 Was the patient premedicated? Yes 16:05:05 Is patient on blood thinner?No 16:05:06 Radial Cocktail (Verapamil 2mg/Nitro 400mcg/Heparin 1500units) 1 syring e added to field was administered by Ayaan Singh MD; used for procedure; Verbal order read back and verified. 16:05:08 Patient diabetic? Yes. 16:05:11 If diabetic: On Metformin? No 16:05:13 ----Pre-sedation anethsthesia assessment.---- 16:05:17 Previous problem with sedation/anesthesia? No ? 16:05:20 Snore? Yes 16:05:24 Sleep apnea? No 16:05:26 Deviated septum? No 16:05:28 Opens mouth fully? Yes 16:05:31 Sticks out tongue? Yes 16:05:39 Airway obstruction? Yes ASTHMA 16:05:52 Dentures? Yes TOP IN TIGHT 16:07:22 Pre procedure: right dorsailis pedis pulse 1+ Palpable, but thready & weak; easily obliterated 16:08:03 IV patent on arrival in Rt subclavian with 0.9% NaCl at [facility]. 16:08:11 Lab results completed and on chart. 16:08:17 Right Radial & Right Groin area was prepped with chlora-prep and draped in sterile fashion 16:08: Alarms reviewed by R. N. 16:08:22 Sharps counted by scrub and verified by R.N. 16:08:25 Physician arrived 16:08:25 --------ALL STOP TIME OUT------ 16:08:26 Final Timeout: patient, procedure, and site verified with staff and physician. All members of the team are in agreement. 16:08:30 Right Radial & Right Groin site verified by team. 16:08:36 Fire Safety Assessment: A--An alcohol-based skin anteseptic being used preoperatively., C--Open oxygen or nitrous oxide is being used., D--An ESU, laser, or fiber-optic light is being used. 16:08:42 Physical assessment completed. ASA score P 2 - A patient with mild systemic disease as per Ayaan Singh MD. 16:08:57 3b) 30-44 Moderately reduced kidney function. 16:09:07 Maximum allowable contrast dose (3.7 X eGFR X 0.75)105 ml. 16:09:14 Sedation plan: IV Moderate Sedation Medication:Versed, Fentanyl 16::22 Fentanyl 25 mcg I.V. was administered by Renetta Soto RN; for sedation ; Verbal order read back and verified. 16:09:53 Versed 1 mg I.V. was administered by Renetta Soto RN; for sedation; Verbal order read back and verified. 16:11:09 Use device set Radial Dx or PCI 16:11:11 ACIST Syringe (07933) opened to sterile field. 16:11:13 Medline Cath Pack ([id number]) opened to sterile field. 16:11:14 Bag Decanter (2002) opened to sterile field. 16:11:15 ACIST Hand Control (03336) opened to sterile field. 16:11:16 ACIST Manifold (34761) opened to sterile field. 16:11:17 Tegaderm 4 x 4 (1626W) opened to sterile field. 16:11:18 MBrace Wrist Support ([id number]) opened to sterile field. 16:11:20 EMERALD Guide Wire (806-100) opened to sterile field. 16:11:21 SHEATH 6FR RAIN (3065807) opened to sterile field. 16:14:54 Procedure started. 16:16:15 Local anesthetic to right radial artery with Lidocaine 2% by Ayaan Singh MD.INITIAL ACCESS ONLY 16:16:35 A 6 Fr Short sheath was inserted into the Right Radial artery 16:17:28 Zero performed for pressure channel P1 16:17:57 A DIAGNOSTIC [place] 110cm 5 Fr catheter (270566) was advanced over the wire and used for Procedure. 16:18:19 EF : 60 % 16:18:22 LV gram done using BELLAMY 16:18:27 Injector settings: Ml/sec: 5, Volume: 15, 16:18:37 LCA angiography performed. 16:18:45 Injector settings: Ml/sec: 3, Volume: 6, 16:19:49 RCA angiography performed. 16:20:01 Catheter removed. 16:20:02 Proceeding to intervention. 16:20:31 One4All Verrata Plus pressure wire (33719F) opened to sterile field. 16:20:32 INFLATOR Merit BasixCompak (CB2801) opened to sterile field. 16:22:25 GUIDE 6FR EBU 3.5 catheter (IH4CYP79) opened to sterile field. 16:22:40 6 Fr EBU3.5 guide catheter was inserted over the wire 16:23:48 FFR/IFR wire advanced. 16:24:25 Wire advanced across lesion. 16:24:31 LAD lesion measured at .78 with IFR 16:25:21 Heparin Bolus 4000 units I.V. was administered by Renetta Soto RN; for anticoagulation; verified with Dr. Singh Verbal order read back and verified. 16:25:30 Pre PCI Site: [place] LAD has 75% stenosis. 16:25:35 Integrilin (Bolus 2mg/ml) 9.5 ml I.V. was administered by Renetta Soto RN; for antiplatelet therapy; Verbal order read back and verified. 16:25:44 Integrilin (Bolus 2mg/ml) 0.5 ml wasted was administered by Renetta Soto RN; for antiplatelet therapy; Verbal order read back and verified. 16:25:48 Plavix 600 mg P.O. was administered by Renetta Soto RN; for antiplatelet therapy; Verbal order read back and verified. 16:25:59 Lopressor 10 mg I.V. was administered by Renetta Soto RN; Per physician; Verbal order read back and verified. 16:26:11 Amiodarone (150mg/3mls) I.V. was administered by Renetta Soto RN; Per physician; Verbal order read back and verified. 16:26:18 Place stent Inflation Number: 1 A INTEGRITY RX 3.0 x 15 stent ([id number]) was prepped and advanced across the Mid LAD . The stent was deployed at 15 FRANSISCO for 0:00 (min:sec) . 16:26:28 Stent catheter was removed intact over wire. 16:26:29 Wire removed. 16:26:30 Guide catheter removed. 16:26:53 GUIDE 6FR AR 2.0 catheter ([id number]) opened to sterile field. 16:27:49 6 Fr AR 2 guide catheter was inserted over the wire 16:28:18 FFR/IFR wire advanced. 16:28:53 Wire advanced across lesion. 16:29:17 RCA lesion measured at .85 with IFR 16:29:45 Pre PCI Site: [place] RCA has 75% stenosis. 16:30:50 Place stent Inflation Number: 1 A INTEGRITY RX 3.0 x 15 stent ([id number]) was prepped and advanced across the Mid RCA . The stent was deployed at 15 FRANSISCO for 0:00 (min:sec) . 16:31:02 Stent catheter was removed intact over wire. 16:31:03 Wire removed. 16:31:03 Guide catheter removed. 16:31:32 ZEPHYR REGULAR TR BAND (237179) opened to sterile field. 16:31:36 Procedure ended.(Physican Out) 16:31:47 Sheath removed intact; hemostasis achieved with Mechanical Compression to the Right Radial artery. 16:32:01 Fluoroscopy time 04.20 minutes. 16:32:05 Flurop Dose total: 845 16:32:05 Fluoroscopy dose: 845 mGy 16:32:10 Dose Area Product 29123 mGy/cm. 16:32:15 Contrast amount:Isovue 300 91ml. 16:32:33 Maximum allowable dose exceeded? No. 16:32:34 Sharps counted by scrub and verified by R.N. 16:32:38 Gormania band inflated with 13cc of air. 16:32:41 Post-procedure physical assessment completed. ASA score P 3 - A patient with severe systemic disease as per Ayaan Singh MD. 16:32:45 Post procedure rhythm: unchanged. 16:32:47 Estimated blood loss: 10 ml 16:32:55 Post procedure instruction explained to patient.Patient verbalizes understanding. 16:32:56 Patient needs reinforcement of post procedure teaching. 16:33:30 Procedure type changed to Cath procedure, Diagnostic procedure, LHC, LH C w/Coronaries, FFR/IVUS, FFR Initial, FFR Additional, Sedation Charges, Moderate Sedation up to 15 minutes, PCI procedure, Coronary Stent, Coronary Stent Initial x2, Hemochron ACT Test 16:35:02 ACT drawn and resulted at 246 seconds. (normal therapeutic range 180-24 0 seconds). 16:35:08 Procedure and supply charges have been captured, reviewed, submitted an d are correct. 16:35:10 Procedure Complication : No complications 16:35:12 Vital chart was stopped 16:35:13 [facility] Findings: MVD- PCI performed (see procedure note) 16:35:15 Operative report dictated upon procedure completion. 16:35:15 See physician's report for complete and final results. 16:35:26 Report given to PCU. 16:35:28 Patient transfered to PCU with Bed. 16:35:30 Procedure ended. 16:35:30 Full Disclosure recording stopped 16:35:42 ACC-PCI Only Patient was given prescriptions, or instructed by Ayaan Singh MD to start/continue the following medications upon discharge: Plavix 16:35:43 End room use (Document Last) Intervention Summary Intervention Notes Time ActionType Lesion and Equipment Action# Pressure Duration Attributes Used 16:26:18 Place stent Mid LAD INTEGRITY RX 1 15 00:00 3.0 x 15 stent ([id number]) 16:30:50 Place stent Mid RCA INTEGRITY RX 1 15 00:00 3.0 x 15 stent ([id number]) Device Usage Item Name Manufacture Quantity Catalog Hospital Part Current Min imal Lot# / Number Charge Number Stock Stock Serial# Code ACIST Acist 1 65732 829079 641569 763943 20 Syringe Medical (35143) Systems Inc Medline Cath Medline 1 [id number] 106073 51975 497780 5 Pack ([id number]) Bag Decanter Microtek 1 2001S 243073 41003 113232 5 (2002S) Medical Inc. ACIST Hand Acist 1 22588 454905 465389 563500 5 Control Medical (76676) Systems Inc ACIST Acist 1 83353 713689 574677 998213 5 Manifold Medical (50391) Systems Inc Tegaderm 4 x 3M 1 1626W 512675 270136 629024 5 4 (1626W) MBrace Wrist Advanced 1 140-0250-00 122346 62335 613147 5 Support Vascular (761493485) Dynamics EMERALD Cardinal 1 502-455 884793 915894 836630 5 Guide Wire Health (502-455) SHEATH 6FR [place] 1 8108503 537779 2289954 572634 5 [facility] (8543457) DIAGNOSTIC Terumo 1 40-5013 210314 340930 614638 5 [place] 110cm 5 Fr catheter (840951) [place] 1 97740U 195668 093344059 849233 5 Verrata Plus pressure wire (74396G) INFLATOR Merit 1 TB2452 797652 509696 289594 15 TM3 Software Medical BasixCompak (NZ1921) GUIDE 6FR Medtronic 1 [id number] 841328 73621 497031 3 EBU 3.5 catheter (BD9CRQ85) INTEGRITY RX Medtronic 2 [id number] 028927 043421 922184 5 [id number] 3.0 x 15 [id number] stent ([id number]) GUIDE 6FR AR Medtronic 1 [id number] 614502 61999 082394 1 2.0 catheter (HF9FC32) ZEPHYR Cardinal 1 037584 653144 9732968 992957 5 REGULAR TR Health BAND (251915) Signature Audit [place] Stage Time Signature Unsigned Intra-Procedure 06/08/2019 Barb Houston 4:39:36 PM RT(R) Intra-Procedure 06/08/2019 Renetta Soto 4:40:00 PM RN Intra-Procedure 06/08/2019 Ayaan Singh 4:40:20 PM Signatures Performing Physician : Signature : Ayaan Singh MD Date : Time : Nurse : Renetta Soto RN Signature : Date : Time : Monitor : Barb Houston Signature : RT Date : Time : [place] [address] [place] [address]
--- NOTE | ~2019-06-04 | OP ---
PATIENT NAME: ROSE OLSON MEDICAL RECORD: [id number] :36 LOCATION:D.M2 D.2137 ADMISSION DATE:06/05/19 SURGEON: ELIAZAR HILL MD DATE OF OPERATION: 06/08/2019 PROCEDURES: 1. PTCA stent LAD. 2. PTCA stent RCA. 3. IFR LAD. 4. IFR RCA. 5. Left heart catheterization. 6. Selective coronary angiography. 7. Left ventriculogram. INDICATION: Angina and coronary artery disease. PROCEDURE IN DETAIL: After informed consent was obtained and after a detailed description of risks, benefits as well as alternative therapies, the patient elected to proceed with angiogram and angioplasty. The right radial area was prepped and draped in normal sterile fashion. Right radial artery was cannulated via modified Seldinger technique with placement of 6-Vietnamese sheath. All catheters exchanged through this sheath. FINDINGS: Left ventriculogram performed in standard 30-degree BELLAMY view, reveals good cardiac wall motion, ejection fraction 55% to 60%. SELECTIVE CORONARY ANGIOGRAPHY: 1. Left main is with no significant angiographic disease. 2. Left anterior descending has 70% to 75% stenosis in the mid vessel and IFR was abnormal. 3. Left circumflex has mild irregularities, but no flow-limiting stenosis. 4. Right coronary has 70% stenosis in mid vessel. IFR was abnormal. PTCA STENT OF THE LAD: The stent used was a 3.0 x 15 mm Integrity. Result was 0% residual stenosis. PTCA STENT OF THE RCA: The stent used was a 3.0 x 15 mm Integrity. Result was 0% residual stenosis. OVERALL IMPRESSION: Successful PTCA stent of the LAD and RCA, both going from 70% initial stenosis to 0% residual. TRANSINT:[id number] Voice Confirmation ID: [id number] DOCUMENT ID: [id number] ELIAZAR HILL MD CC: [id number] DICTATION DATE: 06/08/19 1636 SULFONATION EQUIPMENT OPERATOR: 06/08/192228 ADM IN [id number] [place] [address]
[~2019-06-04 22:44] MED LIST changes: +ATROVENT 0.02%2.5 ML UPD; +BROVANA15 MCG/2 M INH; +PULMICORT0.25 MG/1 INH
--- NOTE | 2019-06-04 23:15 | NUR ---
AFTER MULTIPLE IV ATTEMPTS MADE BY MULTIPLE NURSES, UNABLE TO GAIN IV ACCESS. NOTIFIED EDP FILOMENA. VERBAL ORDER GIVEN TO SET UP FOR EJ ACCESS
[2019-06-04 23:17] LABS: APTT 30.7 SECONDS (22.8-39.4); INR 2.59 (0.85-1.17); PROTIME 27.4 SECONDS (11.6-15.0)
[2019-06-04 23:19] LABS: HEMATOCRIT 37.9 % (36.0-48.0); HEMOGLOBIN 11.8 g/dL (12-16); LYMPHOCYTES 14.9 % (15-50); MCH 26.3 pg (26.0-34.0); MCHC 31.1 g/dL (31.0-37.0); MCV 84.4 fL (80.0-100.0); MEAN PLATELET VOLUME 11.1 fL (7.4-10.4); PLATELET COUNT 241 10x3/uL (130-400); RBC 4.49 10x6/uL (4.00-5.40); RDW 15.6 % (11.5-14.5); WBC 12.8 10x3/uL (4.8-10.8)
--- NOTE | 2019-06-04 23:25 | NUR ---
UNABLE TO GAIN EJ ACCESS BY COTY BUTT. VERBAL ORDER FOR CENTRAL LINE GIVEN
[2019-06-04 23:32] LABS: ALBUMIN 2.9 g/dL (3.4-5.0); ALKALINE PHOSPHATASE 136 U/L (30-120); ALT (SGPT) 221 U/L (10-68); BILIRUBIN - TOTAL 0.93 mg/dL (0.2-1.3); CARBON DIOXIDE 21.3 mmol/L (21.0-32.0); CHLORIDE - SERUM 88 mmol/L (98-107); CKMB 0.8 U/L (0.0-3.6); CREATINE KINASE 63 UL (21-215); CREATININE - SERUM 2.5 mg/dL (0.6-1.3); MAGNESIUM - SERUM 1.8 mg/dL (1.8-2.4); PROTEIN - SERUM 6.1 g/dL (6.4-8.2); SODIUM 126 mmol/L (136-145); TROPONIN-I < 0.017 ng/mL (0.000-0.060); UREA NITROGEN 48 mg/dL (7-18); eGFR NON AFRICAN AMERICAN 20 mL/min (90-120)
[2019-06-04 23:33] VITALS: BP 113/80
--- NOTE | 2019-06-04 23:33 | NUR ---
CONSENT FORM FOR CENTRAL LINE PLACEMENT SIGNED BY PT AT THIS TIME
[2019-06-04 23:34] LABS: CALC OSMOLALITY 311 mosm/kg (275-300)
[2019-06-04 23:41] LABS: CALCIUM 6.1 mg/dL (8.5-10.1); GLUCOSE 931 mg/dL (74-106); POTASSIUM - SERUM 7.2 mmol/L (3.5-5.1)
[2019-06-05] VITALS (26 sets, daily range): BP systolic 98–145; BP diastolic 54–77; Ht 160 cm; Wt 103.4 kg
--- NOTE | 2019-06-05 00:15 | NUR ---
TWO ATTEMPTS MADE BY COTY BUTT TO PLACE CENTRAL LINE. DR. FARLEY PAGED BY COTY BUTT FOR PLACEMENT OF CENTRAL LINE
--- NOTE | 2019-06-05 00:35 | NUR ---
DR. FARLEY ARRIVED FOR CENTRAL LINE PLACEMENT
--- NOTE | 2019-06-05 00:52 | NUR ---
SUCCESSFUL CENTRAL LINE PLACEMENT BY DR. FARLEY CONFIRMED BY XRAY
[2019-06-05 02:27] LABS: CREATININE - SERUM 2.5 mg/dL (0.6-1.3); MAGNESIUM - SERUM 1.8 mg/dL (1.8-2.4)
[2019-06-05 02:28] LABS: ANION GAP 16.4 mmol/L (8-16); CALCIUM 6.5 mg/dL (8.5-10.1); POTASSIUM - SERUM 6.4 mmol/L (3.5-5.1)
--- NOTE | 2019-06-05 02:55 | NUR ---
PT BROUGHT TO UNIT VIA STRETCHER ACCOMPANIED BY ER STAFF. TRANSFERRED TO ICU BED AND PLACED ON MONITORS AT THIS TIME. PT DENIES PAIN, HAS SOME MID EPIGASTRIC PAIN UPON PALPATION. PT AAO X4 - 4L NC - TACHYPNIC - 98% SPO2 - PT IS BRADYCARDIC WITH IRREGULAR HEART RATE AND RHYTHM. 5 BEAT RUN OF PVC'S NOTED. UNABLE TO OBTAIN FINGERSTICK AT THIS TIME BLOOD DRAWN PER PROTOCOL FROM CVL AND SENT TO LAB. LUNG GRAVES DIMINISHED - PT USING ACCESSORY MUSCLES AND PURSED LIP BREATHING. SOB ON EXERTION. PT IS PALE AND COOL - TEMP WNL. DENIES THOUGHTS OF SELF HARM OR SUICIDE. HISTORY, MED REC AND ADMISSIONS ASSESSMENT COMPLETED AT THIS TIME, WILL CONTINUE TO CLOSELY MONITOR.
--- NOTE | 2019-06-05 04:06 | NUR ---
INSULIN DRIP INITIATED PER DKA PROTOCOL. SEE FLOW SHEET
[2019-06-05 05:29] LABS: HEMATOCRIT 33.1 % (36.0-48.0); HEMOGLOBIN 10.6 g/dL (12-16); MEAN PLATELET VOLUME 11.2 fL (7.4-10.4); PLATELET COUNT 252 10x3/uL (130-400); RBC 4.07 10x6/uL (4.00-5.40); RDW 15.4 % (11.5-14.5); WBC 14.4 10x3/uL (4.8-10.8)
[2019-06-05 05:37] LABS: ALBUMIN 2.9 g/dL (3.4-5.0); ALKALINE PHOSPHATASE 169 U/L (30-120); BILIRUBIN - TOTAL 0.71 mg/dL (0.2-1.3); CARBON DIOXIDE 27.6 mmol/L (21.0-32.0); CHLORIDE - SERUM 93 mmol/L (98-107); CKMB 0.9 U/L (0.0-3.6); CREATINE KINASE 65 UL (21-215); CREATININE - SERUM 2.6 mg/dL (0.6-1.3); PROTEIN - SERUM 5.9 g/dL (6.4-8.2); SODIUM 133 mmol/L (136-145); TROPONIN-I 0.045 ng/mL (0.000-0.060); UREA NITROGEN 53 mg/dL (7-18); eGFR NON AFRICAN AMERICAN 19 mL/min (90-120)
[2019-06-05 05:39] LABS: ALT (SGPT) 792 U/L (10-68); CALC OSMOLALITY 304 mosm/kg (275-300); POTASSIUM - SERUM 5.1 mmol/L (3.5-5.1)
[2019-06-05 05:40] LABS: CALCIUM 6.8 mg/dL (8.5-10.1); GLUCOSE 552 mg/dL (74-106)
--- NOTE | 2019-06-05 05:43 | NUR ---
CORRECTED CALCIUM 7.7
[2019-06-05 05:54] LABS: MCV 81.3 fL (80.0-100.0)
[2019-06-05 06:33] LABS: LYMPHOCYTES 3 % (15-50); MONOCYTES 2 % (2-11); NEUTROPHILS 95 % (40-80); PLATELET ESTIMATE NORMAL; STOMATOCYTES OCC; TEAR DROP CELLS OCC
--- NOTE | 2019-06-05 07:11 | NUR ---
CALLED CARDIOLOGY CONSULT AT THIS TIME
--- NOTE | 2019-06-05 07:57 | NUR ---
BREAKFAST TRAY SERVED AND PT IS EATING BREAKFAST WITH OUT DIFFICULTY.
--- NOTE | 2019-06-05 07:59 | NUR ---
PT AWAKE AND DENIES C/O. DENIES PAIN. INSULIN GTT PER DKA PROTOCOL FLOW SHEET UTILIZED.
[2019-06-05 09:42] LABS: T4 THYROXIN - FREE 0.95 ng/dL (0.76-1.46); THYROID STIMULATING HORMONE 5.54 uIU/mL (0.36-3.74)
[2019-06-05 12:08] LABS: CKMB 0.9 U/L (0.0-3.6); CREATINE KINASE 50 UL (21-215); TROPONIN-I 0.054 ng/mL (0.000-0.060)
--- NOTE | 2019-06-05 14:30 | NUR ---
BATH AND LINENS CHANGED. PT RAMONA WELL. FAMILY AT BS.
--- NOTE | 2019-06-05 15:16 | MORECARE ---
CASE MANAGEMENT DISCHARGE SUMMARY PATIENT: ROSE OLSON UNIT: [id number] ADM DATE: 06/05/19 AGE: 78 : 38 SEX: F ROOM/BED: D.2306 AUTHOR: ZACKARY DEL VALLE PHYSICIAN: REFERRING PHYSICIAN: TOMASA PADILLA MD DATE OF SERVICE: 06/05/19 Discharge Plan Patient Name: ROSE OLSON [facility] [facility] 1940 Planned Disposition: Anticipated Discharge Date: Discharge Date: Expected LOS: Initial Reviewer: [email or web address] Initial Review Date: 06/05/2019 Generated: 06/05/19 4:15 pm DCPIA - Discharge Planning Initial Assessment Updated by [email or web address]: Miguelina Mesa on 06/05/19 3:13 pm * Is the patient Alert and Oriented? Yes * How many steps to enter\exit or inside your home? * PCP [facility] * Pharmacy [facility] * Preadmission Environment Home Alone * ADLs Independent * List name and contact numbers for known caregivers / representatives who currently or will assist patient after discharge: [facility] [phone] * Verbal permission to speak to the caregivers and representatives has been obtained from the patient. Yes * Community resources currently utilized Home Health * Please name any agencies selected above. [facility] * Additional services required to return to the preadmission environment? No * Can the patient safely return to the preadmission environment? Yes * Has this patient been hospitalized within the prior 30 days at any hospital? Yes Patient Name: ROSE OLSON Page [phone] at 1516 All edits/amendments must be made on the electronic document DICTATION DATE: 06/05/19 1515 SALES AND SERVICE ADVISOR: BETHANIE 06/05/19 1515 RPT#: [id number] DC DATE: STATUS: ADM IN [facility] [address] [place] [address] END OF REPORT
--- NOTE | 2019-06-05 15:27 | NUR ---
INSULIN GTT INFUSING ORDERED. DKA PROTOCOL FLOW SHEET USED.
--- NOTE | 2019-06-05 15:50 | MORECARE ---
CASE MANAGEMENT DISCHARGE SUMMARY PATIENT: ROSE OLSON UNIT: [id number] ADM DATE: 06/05/19 AGE: 78 : 38 SEX: F ROOM/BED: D.2306 AUTHOR: IVON,DOC PHYSICIAN: REFERRING PHYSICIAN: TOMASA PADILLA MD DATE OF SERVICE: 06/05/19 Discharge Plan Patient Name: ROSE OLSON Facility: [facility]:[place] : 1940 Planned Disposition: Anticipated Discharge Date: Discharge Date: Expected LOS: Initial Reviewer: [email or web address] Initial Review Date: 06/05/2019 Generated: 06/05/19 4:49 pm Comments DCP- Discharge Planning Updated by [email or web address]: Miguelina Mesa on 06/05/19 2:[address] Patient Name: ROSE OLSON Admission Status: ER Accout number: [id number] Admission Date: 06-05-2019 : 1940 Admission Diagnosis: Attending: TOMASA PADILLA Current LOS: 1 Anticipated DC Date: Planned Disposition: Primary Insurance: [employer] Discharge Planning Comments: CM met with patient to complete initial dc planning assessment. CM educated patient on the CM role and verbal consent given by patient to complete assessment. CM verified patient's address, phone number, and emergency contact phone numbers. Patient lives at home independently. At discharge patient plans to return home and plans to resume home health with [facility] COL[facility] signed. CM discussed availability of home health, rehab services, and medical equipment. Patient states she uses home 02,and has portable 02 and also a nebulizer from [employer]. Patient denies any current discharge needs. CM will continue to follow and will assist as needed with dc plans/needs. Napper Grinder: Miguelina Mesa DCPIA - Discharge Planning Initial Assessment Updated by [email or web address]: Miguelina Mesa on 06/05/19 3:13 pm * Is the patient Alert and Oriented? Yes * How many steps to enter\exit or inside your home? * PCP [facility] * Pharmacy [facility] * Preadmission Environment Home Alone * ADLs Independent * List name and contact numbers for known caregivers / representatives who currently or will assist patient after discharge: [facility] [phone] * Verbal permission to speak to the caregivers and representatives has been obtained from the patient. Yes * Community resources currently utilized Home Health * Please name any agencies selected above. [facility] * Additional services required to return to the preadmission environment? No * Can the patient safely return to the preadmission environment? Yes * Has this patient been hospitalized within the prior 30 days at any hospital? Yes Last DP export: 06/05/19 2:16 p Patient Name: ROSE OLSON Page 17188 at 1550 All edits/amendments must be made on the electronic document DICTATION DATE: 06/05/19 1549 MANAGER PERSONAL: BETHANIE 06/05/19 1549 RPT#: [id number] DC DATE: STATUS: ADM IN [facility] [address] [place] [address] END OF REPORT
--- NOTE | 2019-06-05 16:42 | EC ---
PATIENT:ROSE OLSON DATE OF SERVICE: 06/05/19 SEX: F MEDICAL RECORD: [id number] DATE OF : 36 LOCATION:[facility] D230 AGE OF PATIENT: 78 ADMISSION DATE: 06/05/19 REFERRING PHYSICIAN: INTERPRETING PHYSICIAN: ELIAZAR SINGH MD ECHOCARDIOGRAM REPORT ECHO CHARGES 5 ECHO LIMITED Date: 06/05/19 CLINICAL DIAGNOSIS: BRADYCARDIA ECHOCARDIOGRAPHIC MEASUREMENTS (adult normal given) AC root (d.<3.7cm) 0 cm LV Septum d (<1.2 cm> 0 cm Valve Excursion 0 cm LV Septum (systole) 0 cm Left Atria (s.<4.0cm> 0 cm LVPW d(<1.2cm) 0 cm RV (d.<2.3cm) 0 cm LVPW (sytole) 0 cm LV diastole(<5.6CM) 0 cm MV E-F(>70mm/sec) 0 cm LV systole 0 cm LVOT Diameter 0 cm MV exc.(>10mm) 00 cm Est.ejection fraction (50-75%) % DOPPLER: LVIT cm/sec A 0 cm/sec E 0 cm/sec LA 0 cm/sec RVSP 38.0 mmHg LVOT 0 cm/sec AOP1/2T m/s Asc. Ao 0 cm/sec RVOT 00 cm/sec RA 0 cm/sec PA 0 cm/sec AV Gradient Peak 0 mmHg AV Mean 0 mmHg AV Area 0 cm MV Gradient Peak 0 mmHg MV Mean 0 mmHg MV Area 0 cm COMMENTS: Administrative Assistant Receptionist: Dakota GALINDO Commissioning Editor: Donell Singh TAPE# PACS Pericardial Effusion N DATE OF SERVICE: ECHOCARDIOGRAM FINDINGS: 1. Left ventricular chamber size is within normal limits. Left ventricular systolic function is normal at 55%. 2. Left atrium, right atrium, and right ventricle chamber sizes are mildly dilated. 3. Valvular structures have normal structure and motion. ECHOCARDIOGRAM REPORT [id number] ROSE OLSON 4. Doppler interrogation reveals mild mitral regurgitation, severe tricuspid regurgitation, no other valvular insufficiency or stenosis. Pulmonary systolic pressure estimated at 38 mmHg. 5. No evidence of pericardial effusion or left ventricular thrombus. TRANSINT:[id number] Voice Confirmation ID: [id number] DOCUMENT ID: [id number] ELIAZAR SINGH MD at 1642 CC: [id number] DICTATION DATE: 06/05/19 1146 CUSTOMS GUARD: 06/05/19 1226 ADM IN [facility] [address] [place] [id number]
[2019-06-05 17:16] LABS: CKMB 0.9 U/L (0.0-3.6); CREATINE KINASE 52 UL (21-215); TROPONIN-I 0.037 ng/mL (0.000-0.060)
--- NOTE | 2019-06-05 18:14 | NUR ---
NOTHING IN EXTERNAL FEMAIL CATH. REPORTED TO DR PADILLA. BLADDER SCANNED ORDERED. ZERO IS RESULT ON BLADDER SCAN RESULTS. WILL CONTINUE TO HYDRATE ORDERED. NO OTHER NEW ORDERS EXCEPT TO SCAN BLADDER.
--- NOTE | 2019-06-05 19:30 | NUR ---
SHIFT ASSESSMENT COMPLETED SEE FLOWSHEET, PT AAOX4 - ASLEEP UPON ENTERING ROOM - ROUSES EASILY, EYES OPEN TO SPEECH. DENIES PAIN STATING SHE JUST HAS GAS NOW - SHE DENIES NEEDS BS CHECKED AND INSULIN GTT ADJUSTED PER PROTOCOL. VSS REBEL @ 52 IRREGULAR RATE AND RHYTHM - VSS CPOC
[2019-06-05 20:29] LABS: CARBON DIOXIDE 30.7 mmol/L (21.0-32.0); CREATININE - SERUM 2.1 mg/dL (0.6-1.3); POTASSIUM - SERUM 3.7 mmol/L (3.5-5.1)
--- NOTE | 2019-06-05 20:29 | NUR ---
PATIENT RECEIVED APPLE SAUCE PER REQUEST
--- NOTE | 2019-06-05 23:30 | NUR ---
PT REQUESTED SCD REMOVAL, PT EDUCATION PROVIDED AT THIS TIME REGARDING CLINICAL REASONING FOR SCD PLACEMENT. PT REFUSING SCD AT THIS TIME. REASSESSMENT COMPLETED SEE FLOWSHEET. VSS CPOC
[2019-06-06] VITALS (24 sets, daily range): BP systolic 118–161; BP diastolic 55–81
[2019-06-06 00:52] LABS: CALCIUM 5.9 mg/dL (8.5-10.1)
--- NOTE | 2019-06-06 01:00 | NUR ---
PT RESTING COMFORTABLY - DENIES NEEDS CBIR, BED ALARM ON TWO SIDE RAILS FOR SAFETY - VSS CPOC
[2019-06-06 02:37] LABS: BILIRUBIN NEGATIVE (NEGATIVE); GLUCOSE 50 mg/dL (NEGATIVE); KETONE NEGATIVE (NEGATIVE); NITRITE NEGATIVE (NEGATIVE); UROBILINOGEN NORMAL (NORMAL)
--- NOTE | 2019-06-06 03:30 | NUR ---
REASSESSMENT COMPLETED SEE FLOWSHEET
[2019-06-06 05:36] LABS: BASOPHILS 0.2 % (0-2); HEMATOCRIT 29.7 % (36.0-48.0); HEMOGLOBIN 9.5 g/dL (12-16); IMMATURE GRANULOCYTES 1.2 % (0-5); LYMPHOCYTES 16.5 % (15-50); MCH 26.2 pg (26.0-34.0); MCV 81.8 fL (80.0-100.0); MEAN PLATELET VOLUME 10.6 fL (7.4-10.4); MONOCYTES 3.3 % (2-11); NEUTROPHILS 77.8 % (40-80); PLATELET COUNT 203 10x3/uL (130-400); RBC 3.63 10x6/uL (4.00-5.40); RDW 15.7 % (11.5-14.5)
[2019-06-06 05:37] LABS: WBC 9.9 10x3/uL (4.8-10.8)
[2019-06-06 05:56] LABS: ALBUMIN 2.4 g/dL (3.4-5.0); ANION GAP 10.5 mmol/L (8-16); BILIRUBIN - TOTAL 0.57 mg/dL (0.2-1.3); CARBON DIOXIDE 31.7 mmol/L (21.0-32.0); CREATININE - SERUM 1.9 mg/dL (0.6-1.3); PHOSPHOROUS 5.6 mg/dL (2.5-4.9); POTASSIUM - SERUM 4.2 mmol/L (3.5-5.1)
[2019-06-06 05:57] LABS: MAGNESIUM - SERUM 1.2 mg/dL (1.8-2.4)
[2019-06-06 05:58] LABS: CALCIUM 5.7 mg/dL (8.5-10.1)
--- NOTE | 2019-06-06 07:00 | NUR ---
TOYA PORTILLO NOTIFIED OF CRITICAL CALCIUM
--- NOTE | 2019-06-06 07:28 | NUR ---
PT ALERT AND ORIENTED. VSS, AFEBRILE. DENIES PAIN.
--- NOTE | 2019-06-06 09:55 | NUR ---
DR MASTERS HERE.
[2019-06-06 13:16] LABS: CARBON DIOXIDE 27.4 mmol/L (21.0-32.0); CREATININE - SERUM 1.7 mg/dL (0.6-1.3); POTASSIUM - SERUM 4.4 mmol/L (3.5-5.1)
[2019-06-06 13:20] LABS: CALCIUM 5.8 mg/dL (8.5-10.1)
--- NOTE | 2019-06-06 19:00 | NUR ---
Patient assessment completed at this time no change noted from nurse report. Patient awake alert oriented x3, vital signs are stable. Patient denies any complaints of distress at this time. Will monitor for changes.
--- NOTE | 2019-06-06 21:00 | NUR ---
Patient resting with eyes closed this time, vital signs stable. No acute distress noted at this time. We will continue to monitor for changes.
--- NOTE | 2019-06-06 23:00 | NUR ---
Patient reassessment completed at this time, no changes noted from previous exam. Vital signs stable, will continue to monitor for changes.
[2019-06-07] VITALS (16 sets, daily range): BP systolic 142–181; BP diastolic 54–92
--- NOTE | 2019-06-07 01:00 | NUR ---
PATIENT RESTING WITH EYES CLOSED, RESPIRATIONS EVEN NONLABORED. VITALS ARE STABLE AT THIS TIME, WILL CONTINUE TO MONITOR FOR CHANGES.
--- NOTE | 2019-06-07 03:00 | NUR ---
PATIENT REASSESSED NO COMPLAINTS THIS TIME, NO CHANGES NOTED FROM PREVIOUS EXAM. VITAL SIGNS CONTINUE TO BE STABLE. NO DISTRESS NOTED AT THIS TIME, WILL CONTINUE TO MONITOR FOR CHANGES.
--- NOTE | 2019-06-07 05:00 | NUR ---
Patient given chlorhexidine gluconate bath this morning, patient advised that she was very uncomfortable and wanted to set up. Patient was assisted up to the bedside chair without difficulty. Patient able to stand under her own weight without any assistance. Vital signs are stable, we will continue to monitor for changes. Call light was placed within reach and patient was advised to use Call light as needed.
--- NOTE | 2019-06-07 05:20 | NUR ---
Patient up to the bedside commode with minimal assist, patient had medium sized brown formed stool. Patient got back to bedside chair with no assist, patient advised to use call light as needed.
[2019-06-07 07:34] LABS: ALBUMIN 2.7 g/dL (3.4-5.0); ANION GAP 13.3 mmol/L (8-16); BILIRUBIN - TOTAL 0.83 mg/dL (0.2-1.3); CREATININE - SERUM 1.4 mg/dL (0.6-1.3); MAGNESIUM - SERUM 2.1 mg/dL (1.8-2.4); POTASSIUM - SERUM 4.3 mmol/L (3.5-5.1); PROTEIN - SERUM 5.9 g/dL (6.4-8.2)
[2019-06-07 07:40] LABS: CALCIUM 6.1 mg/dL (8.5-10.1)
--- NOTE | 2019-06-07 08:34 | NUR ---
PT SITTING UP IN CHAIR. BREAKFAST TRAY SERVED AND PT DENIES NEEDSA AT PRESENT TIME.
--- NOTE | 2019-06-07 08:46 | NUR ---
CALCIUM CRTTICALLY LOW. CALLED TO DR PADILLA.
--- NOTE | 2019-06-07 11:01 | NUR ---
PHONED VITALIY AND REPORTED ELEVATED LIVER ENZYMES. LIPITOR ORDERED TO BE HELD.
--- NOTE | 2019-06-07 14:14 | NUR ---
RECEIVED REPORT FROM HUSSAIN. PATIENT TO UNIT SOON.
--- NOTE | 2019-06-07 15:20 | NUR ---
ASSISTED PATIENT OOB TO RESTROOM AND BACK TO BED. NO DISTRESS. MINIMAL ASSISTANCE REQUIRED WITH TRANSFERS, STAND BY ASSIST ONLY.
--- NOTE | 2019-06-07 15:40 | NUR ---
FRESH ICE WATER PROVIDED. PATIENT RESTING IN BED WITH ATTENTION TOWARD TELEVISION. NO DISTRESS. DENIES NEEDS AT THIS TIME.
--- NOTE | 2019-06-07 16:58 | NUR ---
FSBS 222. 8 UNITS HUMULIN R ADMINISTERED PER SLIDING SCALE.
--- NOTE | 2019-06-07 19:21 | NUR ---
PT FINISHING TX ALERT AND OX4 ASKS FOR A SNACK TO BE BROUGHT AT 2100 WE TALKED ABOUT HER PROCEDURE AND BEING NPO AT MN I DO NOT HAVE DIRECT ORDERS FOR IT YET BED IS LOW AND LOCKED PT HAQS CALL LIGHT
[2019-06-08] VITALS: BP 155/65
[2019-06-08 04:00] VITALS: BP 176/72
--- NOTE | 2019-06-08 04:00 | NUR ---
I have reviewed this patient and I concur with the Shift Assessment completed by the Licensed Practical Nurse today this shift.
[2019-06-08 08:43] VITALS: BP 152/75
--- NOTE | 2019-06-08 09:00 | NUR ---
PT AWAKE AND ALERT, NPO FOR POSSIBLE HEART CATH TODAY.
[2019-06-08 12:16] VITALS: BP 120/69
--- NOTE | 2019-06-08 15:21 | NUR ---
Nutrition Consult/Follow-up: Good appetite/PO intake. Denies N/V/C/D. Reports altered taste since last admit. Cath today. Received consult for diabetic education. Pt reports that she has been diabetic since she was 38 yo and has been educated numerous times. States she tries to watch her carb intake at home. Denies regular soda intake but states that she loves to eat fruit and ate a very large serving of grapes prior to admit. Diet: Renal ADA PO intake: 50-80% Wt: 229# (06/06); 220# (06/05) Last BM: 06/06 Labs reviewed Meds noted: Humulin, Protonix -Continue current diet as tolerated. -Monitor wt. -Provided education and written information on diabetic diet, emphasizing proper portion sizes. Questions answered. -RD following.
[2019-06-08 15:47] VITALS: BP 154/90
[2019-06-08 16:07] LABS: ALBUMIN 2.5 g/dL (3.4-5.0); ANION GAP 12.6 mmol/L (8-16); BILIRUBIN - DIRECT 0.18 mg/dL (0.00-0.30); BILIRUBIN - INDIRECT 0.45 mg/dL (0.00-1.00); BILIRUBIN - TOTAL 0.63 mg/dL (0.2-1.3); CARBON DIOXIDE 30.9 mmol/L (21.0-32.0); CREATININE - SERUM 1.3 mg/dL (0.6-1.3); POTASSIUM - SERUM 4.5 mmol/L (3.5-5.1); PROTEIN - SERUM 5.3 g/dL (6.4-8.2)
[2019-06-08 16:14] LABS: CALCIUM 6.1 mg/dL (8.5-10.1)
--- NOTE | 2019-06-08 17:25 | NUR ---
pt back to room from minilab operator. zephyr in place to right wrist. pt eating dinner, instructed on bedrest order for four hours. bedpan used for voiding.
--- NOTE | 2019-06-08 18:45 | NUR ---
CALL RECEIVED FROM DR SAUCEDA WITH NEUROLOGY STATING HE IS AWARE OF CONSULTS BUT NOT PHYSICALLY SEEING PTS TILL NEXT WEEK. HE DID HOWEVER REVIEW MRI AND RESULTS WITH SYMPTOMS SUGGESTING PARONIAL NEUROPATHY. JENNIFER SUAREZ NOTIFIED AND STATES SHE WILL NOTIFY DR SEBASTIAN.
--- NOTE | 2019-06-08 19:10 | NUR ---
ASWSISTED WITH BED CHANGE AT THIS TIME AND PULSE CHECKED BILAT AWAKE AND ALERT BED LOW AND LOCKED CALL LIGHT IN REACH
[2019-06-08 20:34] VITALS: BP 161/71
--- NOTE | 2019-06-08 20:44 | NUR ---
ATTEMPTED TO LET AIR PRESSURE OFF RT WRIST AND BLEEDING BEGIN REAPPLIED AIR
--- NOTE | 2019-06-08 23:51 | NUR ---
ATTEMPTED AGAIN TO REMOVE PRESSURE FROM RIGHTY WRIST BLEEDING ACURED
--- NOTE | 2019-06-09 01:30 | NUR ---
RELEASED PRESSURE FROM WRIST NO INITIAL BLEEDING
--- NOTE | 2019-06-09 02:10 | NUR ---
HAROON CHECKED ON WRIST SITE 3 TIME CONTINUES TO FREE FROM BLEEDING
--- NOTE | 2019-06-09 02:21 | NUR ---
REVIEWING ORDERS I NOTED TELEMETRY ORDER WAS NOT CARRIED OUT I INFORMED CAR WASH ATTENDANT AND WAS TOLD THERE ARE NO TELEMETRIES LEFT
--- NOTE | 2019-06-09 02:55 | NUR ---
NO BLEEDING FROM RIGHT WRIST SITE
[2019-06-09 04:49] LABS: BASOPHILS 0.5 % (0-2); EOSINOPHILS 2.9 % (0-7); HEMATOCRIT 33.8 % (36.0-48.0); HEMOGLOBIN 10.6 g/dL (12-16); IMMATURE GRANULOCYTES 1.3 % (0-5); LYMPHOCYTES 25.8 % (15-50); MCH 26.1 pg (26.0-34.0); MCHC 31.4 g/dL (31.0-37.0); MCV 83.3 fL (80.0-100.0); MEAN PLATELET VOLUME 10.3 fL (7.4-10.4); MONOCYTES 6.8 % (2-11); NEUTROPHILS 62.7 % (40-80); PLATELET COUNT 210 10x3/uL (130-400); RBC 4.06 10x6/uL (4.00-5.40); RDW 16.4 % (11.5-14.5); WBC 5.6 10x3/uL (4.8-10.8)
[2019-06-09 05:15] LABS: ALBUMIN 2.3 g/dL (3.4-5.0); ANION GAP 11.6 mmol/L (8-16); BILIRUBIN - DIRECT 0.14 mg/dL (0.00-0.30); BILIRUBIN - INDIRECT 0.45 mg/dL (0.00-1.00); BILIRUBIN - TOTAL 0.59 mg/dL (0.2-1.3); CARBON DIOXIDE 27.3 mmol/L (21.0-32.0); CREATININE - SERUM 1.4 mg/dL (0.6-1.3); POTASSIUM - SERUM 3.9 mmol/L (3.5-5.1); PROTEIN - SERUM 5.5 g/dL (6.4-8.2)
[2019-06-09 05:19] VITALS: BP 166/67
[2019-06-09 05:24] LABS: CALCIUM 5.8 mg/dL (8.5-10.1)
--- NOTE | 2019-06-09 06:50 | NUR ---
NOTIFIED THAT PATIENT IS NOT ON TELEMETRY, NO UNITS AVAILABLE. NOTIFIED CHIEF PAYROLL CLERK OF THE NEED FOR A MONITOR.
--- NOTE | 2019-06-09 07:00 | NUR ---
RECEIVED REPORT. ASSUMED CARE OF PATIENT. PATIENT RESTING WITH EYES CLOSED. RESP EVEN AND UNLABORED. EASILY AROUSED. CALL LIGHT WITHIN REACH. NO DISTRESS. PERIPHERAL PULSES PATENT. WAITING ON TELEMETRY UNIT TO BE AVAILABLE.
--- NOTE | 2019-06-09 09:39 | NUR ---
PATIENT HOME MEDICATIONS CONTINUE TO BE ON HOLD AT THIS TIME. PAGED RETAIL AND RESTAURANT TO REQUEST HOME MEDICATIONS BE RESTARTED PATIENT HAS ELEVATED BLOOD PRESSURE THIS AM.
--- NOTE | 2019-06-09 09:40 | NUR ---
2X2 GAUZE APPLIED AND SECURED WITH TEGADERM DRESSING TO RIGHT WRIST S/P COBOL MAINFRAME DEVELOPER FROM 06/08/19. TR BAND REMOVED IT WAS LEFT IN PLACE FROM PREVIOUS SHIFT, HOWEVER THERE WAS NO AIR IN THE CUFF.
[2019-06-09 10:17] VITALS: BP 196/62
[2019-06-09 10:38] VITALS: BP 154/51
--- NOTE | 2019-06-09 10:38 | NUR ---
BP NOW 154/51.
--- NOTE | 2019-06-09 11:44 | NUR ---
FSBS 329. 12 UNITS HUMULIN R ADMINISTERED PER SLIDING SCALE. DIET CHANGED TO DIABETIC DIET. PT SITTING TO SIDE OF BED DOING A WORD SEARCH PUZZLE. NO DISTRESS.
--- NOTE | 2019-06-09 13:44 | OP ---
PATIENT NAME: ROSE OLSON MEDICAL RECORD: [id number] :36 LOCATION:D.M2 D.7 ADMISSION DATE:06/05/19 SURGEON: GARRETT FARLEY MD DATE OF OPERATION: 06/05/2019 PREOPERATIVE DIAGNOSES: 1. Need for IV access. 2. Bradycardia. 3. Atrial fibrillation, on chronic anticoagulants. 4. Acute hypoxic respiratory failure. 5. Zhbgu-ep-gnpbiur diastolic heart failure. 6. Osqmc-tq-tlblyli kidney disease. 7. Hypertension. 8. Hyperlipidemia. 9. Diabetes mellitus. 10. Asthma. POSTOPERATIVE DIAGNOSES: 1. Need for IV access. 2. Bradycardia. 3. Atrial fibrillation, on chronic anticoagulants. 4. Acute hypoxic respiratory failure. 5. Iolzo-eh-apbbama diastolic heart failure. 6. Giobr-st-umpwtmc kidney disease. 7. Hypertension. 8. Hyperlipidemia. 9. Diabetes mellitus. 10. Asthma. PROCEDURE: Right subclavian vein triple-lumen central venous line placement. SURGEON: Garrett Farley MD REPORT OF PROCEDURE: The patient's right chest was prepped and draped in sterile fashion. A 5 cc of 1% lidocaine with epinephrine was infused into the surrounding tissues. A needle was used to cannulate the right subclavian vein and a guidewire was advanced with ease. Over this wire, a dilator was placed followed by the triple lumen catheter. The catheter aspirated nonpulsatile dark blood and flushed easily in all 3 ports. This was sutured into place with 3-0 silk ties and dressed appropriately. COMPLICATIONS: None. CONDITION: Stable. ANESTHESIA: Local. BLOOD LOSS: Minimal. Procedure done in the ER at the bedside. TRANSINT:[id number] Voice Confirmation ID: [id number] DOCUMENT ID: [id number] OPERATIVE REPORT [id number] ROSE OLSON GARRETT FARLEY MD at 1344 CC: [id number] DICTATION DATE: 06/05/19 1337 TOUR ACTOR: 06/05/19 1857 ADM IN [id number] [place] [address]
[2019-06-09 14:28] VITALS: BP 180/68
[2019-06-09 16:00] VITALS: BP 195/62
--- NOTE | 2019-06-09 16:50 | NUR ---
FSBS 232. 8 UNITS HUMULIN R ADMINISTERED PER SLIDING SCALE. NO DISTRESS. CALL LIGHT WITHIN REACH.
--- NOTE | 2019-06-09 19:15 | NUR ---
PT AWAKE AND OX4 DENIES NEEDS AT THIS TIME BED LOW AND LOCKED PT IS WITH CALL LIGHT
[2019-06-09 21:17] VITALS: BP 196/68
[2019-06-10 00:26] VITALS: BP 176/63
--- NOTE | 2019-06-10 02:16 | NUR ---
I have reviewed this patient and I concur with the Shift Assessment completed by the Licensed Practical Nurse today this shift.
[2019-06-10 04:36] LABS: BASOPHILS 0.2 % (0-2); EOSINOPHILS 5.1 % (0-7); HEMATOCRIT 32.8 % (36.0-48.0); HEMOGLOBIN 10.2 g/dL (12-16); IMMATURE GRANULOCYTES 1.4 % (0-5); LYMPHOCYTES 23.1 % (15-50); MCH 25.8 pg (26.0-34.0); MCHC 31.1 g/dL (31.0-37.0); MCV 82.8 fL (80.0-100.0); MEAN PLATELET VOLUME 9.9 fL (7.4-10.4); MONOCYTES 5.9 % (2-11); NEUTROPHILS 64.3 % (40-80); PLATELET COUNT 201 10x3/uL (130-400); RBC 3.96 10x6/uL (4.00-5.40); RDW 16.5 % (11.5-14.5); WBC 6.5 10x3/uL (4.8-10.8)
[2019-06-10 04:55] LABS: ANION GAP 11.6 mmol/L (8-16); CARBON DIOXIDE 28.1 mmol/L (21.0-32.0); CREATININE - SERUM 1.1 mg/dL (0.6-1.3); POTASSIUM - SERUM 3.7 mmol/L (3.5-5.1)
[2019-06-10 05:13] LABS: CALCIUM 6.1 mg/dL (8.5-10.1)
--- NOTE | 2019-06-10 05:54 | NUR ---
CHECKED BP MANUALLY 164/72
[2019-06-10 06:00] VITALS: BP 179/68
--- NOTE | 2019-06-10 08:05 | NUR ---
PATIENT IS ALERT AND ORINETED AND DENIES ANY NEEDS AT THIS TIME.
[2019-06-10 11:29] VITALS: BP 153/62
[2019-06-10 15:19] VITALS: BP 151/64
[2019-06-10] MEDS ORDERED: ADALAT CC90 MG PO (15:31)
[2019-06-10 20:00] VITALS: BP 137/59
--- NOTE | 2019-06-10 20:00 | NUR ---
PT SITTING UP ON SIDE OF BED AWAKE ALERT AND ORIENTED x4. NO SIGNS OR SYMPTOMS OF DISTRESS NOTED. RESPIRATIONS EVEN AND UNLABORED. NO COMPLAINTS OF PAINAT THIS TIME. CALL LIGHT WITH IN REACH AND BED IS IN ITS LOWEST POSITION. PT ENCOURAGED TO CALL FOR HELP WHEN NEEDED. WILL CONTINUE TO MONITOR.
[2019-06-11] VITALS: BP 132/66
--- NOTE | 2019-06-11 01:41 | NUR ---
PT LYING IN BED RESTING WITH EYES CLOSED. EASILY AWAKEN WITH VOICE STIMULATION NO SINGS OF DISTRESS NOTED. RESPIRATIONS EVEN AND UNLABORED. NO COMPLAINTS AT THIS TIME. CALL LIGHT WITH IN JAYMIE AND BED ISIN LOWEST POSITON. WILL CONTINUE TO MONITOR.
[2019-06-11 04:00] VITALS: BP 147/75
[2019-06-11 08:00] LABS: ANION GAP 11.8 mmol/L (8-16); CARBON DIOXIDE 28.9 mmol/L (21.0-32.0); CREATININE - SERUM 1.1 mg/dL (0.6-1.3); POTASSIUM - SERUM 3.7 mmol/L (3.5-5.1)
[2019-06-11 08:02] LABS: BASOPHILS 0.3 % (0-2); EOSINOPHILS 4.1 % (0-7); HEMATOCRIT 31.3 % (36.0-48.0); HEMOGLOBIN 9.9 g/dL (12-16); LYMPHOCYTES 21.4 % (15-50); MCH 26.1 pg (26.0-34.0); MCHC 31.6 g/dL (31.0-37.0); MCV 82.4 fL (80.0-100.0); MEAN PLATELET VOLUME 9.9 fL (7.4-10.4); MONOCYTES 7.2 % (2-11); PLATELET COUNT 213 10x3/uL (130-400); RDW 16.3 % (11.5-14.5); WBC 6.8 10x3/uL (4.8-10.8)
[2019-06-11 08:03] LABS: CALCIUM 6.6 mg/dL (8.5-10.1)
[2019-06-11 10:00] VITALS: BP 123/50
--- NOTE | 2019-06-11 10:22 | NUR ---
PATIENT IS AWAKE AND ALERT. SHE IS SITTING UP ON THE EDGE OF THE BED. READING AND HAS EATTEN HER BREAKFAST. STUDENT IS ASSISTING HER TODAY WELL.
[2019-06-11] MEDS ORDERED: PLAVIX75 MG PO (11:28)
[2019-06-11] MEDS ORDERED: AMIODARONE HCL200 MG PO (11:29)
[2019-06-11] MEDS ORDERED: PROTONIX40 MG PO (11:30)
[2019-06-11 14:04] VITALS: BP 133/51
--- NOTE | 2019-06-11 14:08 | NUR ---
Nutrition Follow-up: Good/fair PO intake. Noted plans for possible d/c today. Diet: Renal ADA PO intake: 50-75% Wt: 228# (06/09); 229# (06/06) Labs noted: Glu 186, Ca 6.6 Meds noted: Tums, Humulin, Protonix, Zofran -Continue current diet as tolerated. -Monitor wt; noted daily wts ordered. -RD following.
[2019-06-11 18:03] VITALS: BP 129/66
[2019-06-11] MEDS ORDERED: TUMS PO (18:36)
--- NOTE | 2019-06-11 18:41 | NUR ---
REMOVED CVL ORDERED. CATHETER INTACT. HELD PRESSURE FOR 15 MINUTES AND PLACED A PRESSURE DRESSING OVER THE SITE. PATIENT TOLERATED. ALSO, TWO SUTURES REMOVED BEFORE REMOVING THE CVL. NO BLEEDING NOTED. WILL CONTINUE TO MONITOR CLOSELY.
--- NOTE | 2019-06-11 19:22 | NUR ---
AWAKE AND ALERT BED LOW AND LOCKED DRSG TO RT CHEST IS INTACT NO BLEED THROUGH PT DENIES PAIN OR NEEDS
[2019-06-11 20:30] VITALS: BP 139/55
--- NOTE | 2019-06-11 22:21 | NUR ---
REINFORCED BANDAGE TO RT CHEST NO BLEEDING HAS OCURRED
[2019-06-12 00:30] VITALS: BP 144/63
--- NOTE | 2019-06-12 01:55 | NUR ---
PT HAD RUN OF VTACH I HAD TO AWAKE PT NO CP PT STATES I FEEL FINE MAGNISIUM LEVEL ADDED TO AM LAB
--- NOTE | 2019-06-12 03:36 | NUR ---
BANDAGE OVER RT CHEST WAS LOOSE NO BLOOD NOTED NO PAIN REPLACED WITH SIMPLE BANDAID
[2019-06-12 04:30] VITALS: BP 138/62
[2019-06-12 06:41] LABS: BASOPHILS 0.3 % (0-2); EOSINOPHILS 5.2 % (0-7); HEMOGLOBIN 9.6 g/dL (12-16); IMMATURE GRANULOCYTES 1.3 % (0-5); LYMPHOCYTES 18.9 % (15-50); MCH 25.7 pg (26.0-34.0); MCV 82.9 fL (80.0-100.0); MEAN PLATELET VOLUME 9.9 fL (7.4-10.4); MONOCYTES 8.4 % (2-11); NEUTROPHILS 65.9 % (40-80); PLATELET COUNT 243 10x3/uL (130-400); RBC 3.74 10x6/uL (4.00-5.40); RDW 16.4 % (11.5-14.5); WBC 6.3 10x3/uL (4.8-10.8)
[2019-06-12 06:49] LABS: ANION GAP 11.2 mmol/L (8-16); CARBON DIOXIDE 28.8 mmol/L (21.0-32.0); CREATININE - SERUM 1.3 mg/dL (0.6-1.3)
[2019-06-12 07:28] LABS: CALCIUM 6.5 mg/dL (8.5-10.1)
--- NOTE | 2019-06-12 10:27 | MORECARE ---
CASE MANAGEMENT DISCHARGE SUMMARY PATIENT: ROSE OLSON UNIT: [id number] ADM DATE: 06/05/19 AGE: 78 : 38 SEX: F ROOM/BED: D.6370 AUTHOR: IVON,DOC PHYSICIAN: REFERRING PHYSICIAN: TOMASA PADILLA MD DATE OF SERVICE: 06/12/19 Discharge Plan Patient Name: ROSE OLSON Facility: [facility]:[place] : 1940 Planned Disposition: Home with Home Health Anticipated Discharge Date: 06/12/19 Discharge Date: Expected LOS: 7 Initial Reviewer: [email or web address] Initial Review Date: 06/05/2019 Generated: 06/12/19 11:27 am Comments DCP- Discharge Planning Updated by [email or web address]: Meño Frausto on 06/12/19 9:[address] Patient Name: ROSE OLSON Encounter No: [id number] : 1940 Primary Insurance: NOVASYGénie NumériqueCR Anticipated DC Date: 06-12-2019 Planned Disposition: Home with Home Health External Planned Provider: [facility] DCP follow-up note: CM MET WITH PT IN ROOM TO DISCUSS DISCHARGE NEEDS AND PLANNING. CM DISCUSSED AVAILABILITY OF HOME HEALTH, REHAB SERVICES AND MEDICAL EQUIPMENT. PT REPORTS SHE IS GOING HOME TODAY AND WILL ACCEPT HOME HEALTH RESUMPTION WITH [place] PREVIOUSLY DISCUSSED. FAMILY TO TRANSPORT HOME AT DISCHARGE. IMPORTANT MESSAGE FROM MEDICARE PROVIDED AND EXPLAINED. CM NOTIFIED DANDRE OF [facility] OF PT'S DISCHARGE HOME TODAY. FOR RESUMPTION OF HOME HEALTH AT DISCHARGE, FAX DISCHARGE INFORMATION TO [facility] AT [phone]. AMANUEL Vallejo DCP- Discharge Planning Updated by [id number]: Miguelina Mesa on 06/05/19 2:[address] Patient Name: ROSE OLSON Admission Status: ER Accout number: [id number] Admission Date: 06-05-2019 : 1940 Admission Diagnosis: Attending: TOMASA PADILLA Current LOS: 1 Anticipated DC Date: Planned Disposition: Primary Insurance: NOVASYSMCR Discharge Planning Comments: CM met with patient to complete initial dc planning assessment. CM educated patient on the CM role and verbal consent given by patient to complete assessment. CM verified patient's address, phone number, and emergency contact phone numbers. Patient lives at home independently. At discharge patient plans to return home and plans to resume home health with [facility] COLT signed. CM discussed availability of home health, rehab services, and medical equipment. Patient states she uses home 02,and has portable 02 and also a nebulizer from [employer]. Patient denies any current discharge needs. CM will continue to follow and will assist as needed with dc plans/needs. Veterinary Assistant: Miguelina Mesa DCPIA - Discharge Planning Initial Assessment Updated by [id number]: Miguelina Mesa on 06/05/19 3:13 pm * Is the patient Alert and Oriented? Yes * How many steps to enter\exit or inside your home? * PCP [facility] * Pharmacy [facility] * Preadmission Environment Home Alone * ADLs Independent * List name and contact numbers for known caregivers / representatives who currently or will assist patient after discharge: [facility] [phone] * Verbal permission to speak to the caregivers and representatives has been obtained from the patient. Yes * Community resources currently utilized Home Health * Please name any agencies selected above. [facility] * Additional services required to return to the preadmission environment? No * Can the patient safely return to the preadmission environment? Yes * Has this patient been hospitalized within the prior 30 days at any hospital? Yes External Providers External Provider: [facility] Next Contact Date: 06/12/2019 Service Request Date: Service Type: Resolution: Reviewer: Comments: Coverage Notice Reviewer: [id number] - Meño Frausto Notice Issued Date-Time: 06/12/2019 8:40 Notice Type: IM Discharge Notice Notice Delivered To: Patient Relationship to Patient: Press Operator Printing Name: Delivery Method: HAND - Hand Delivered Nell Days: Prior Verbal Notification: Recipient Understood Notice: Yes Recipient Signature: Yes Med Rec Note Co-signed by Attending: Coverage Notice Comment: Last DP export: 06/05/19 2:50 p Patient Name: ROSE OLSON Page 19946 at 1027 All edits/amendments must be made on the electronic document DICTATION DATE: 06/12/19 1027 SPECIAL TECHNICAL OPERATIONS OFFICER: BETHANIE 06/12/19 1027 RPT#: [id number] DC DATE: STATUS: ADM IN [facility] [address] [place] [address] END OF REPORT
[2019-06-12 10:46] VITALS: BP 155/69
--- NOTE | 2019-06-12 11:11 | NUR ---
P.T. STATES PT IS GOOD TO D/C.
--- NOTE | 2019-06-12 12:10 | NUR ---
TELEMTRY DC'D. DISCHARGE INSTUCTIONS GIVEN TO PT. PT STATES SHE HAS NO FURTHER QUESTIONS. CHART COPY SIGNED. PT HAS NO IV. PT STATES SHE WILL GET DRESSED AND CALL HER SISTER TO PICK HER UP.
--- NOTE | 2019-06-12 12:58 | MORECARE ---
CASE MANAGEMENT DISCHARGE SUMMARY PATIENT: ROSE OLSON UNIT: [id number] ADM DATE: 06/05/19 AGE: 78 : 38 SEX: F ROOM/BED: D.9600 AUTHOR: IVON,DOC PHYSICIAN: REFERRING PHYSICIAN: TOMASA PADILLA MD DATE OF SERVICE: 06/12/19 Discharge Plan Patient Name: ROSE OLSON Facility: [facility]:[place] : 1940 Planned Disposition: Home with Home Health Anticipated Discharge Date: 06/12/19 Discharge Date: Expected LOS: 7 Initial Reviewer: [email or web address] Initial Review Date: 06/05/2019 Generated: 06/12/19 1:57 pm Comments DCP- Discharge Planning Updated by [id number]: Meño Frausto on 06/12/19 11:[address] Patient Name: ROSE OLSON Encounter No: [id number] : 1940 Primary Insurance: NOVASYSMCR Anticipated DC Date: 06-12-2019 Planned Disposition: Home with Home Health External Planned Provider: [facility] DCP follow-up note: CM NOTIFIED DANDRE OF [facility] OF PT'S DISCHARGE HOME. CM FAXED DISCHARGE INFORMATION TO [facility] AT [phone]. AMANUEL Vallejo DCP- Discharge Planning Updated by [id number]: Meño Frausto on 06/12/19 9:[address] Patient Name: ROSE OLSON Encounter No: [id number] : 1940 Primary Insurance: NOVASYSMCR Anticipated DC Date: 06-12-2019 Planned Disposition: Home with Home Health External Planned Provider: [facility] DCP follow-up note: CM MET WITH PT IN ROOM TO DISCUSS DISCHARGE NEEDS AND PLANNING. CM DISCUSSED AVAILABILITY OF HOME HEALTH, REHAB SERVICES AND MEDICAL EQUIPMENT. PT REPORTS SHE IS GOING HOME TODAY AND WILL ACCEPT HOME HEALTH RESUMPTION WITH [facility] PREVIOUSLY DISCUSSED. FAMILY TO TRANSPORT HOME AT DISCHARGE. IMPORTANT MESSAGE FROM MEDICARE PROVIDED AND EXPLAINED. CM NOTIFIED DANDRE OF [facility] OF PT'S DISCHARGE HOME TODAY. FOR RESUMPTION OF HOME HEALTH AT DISCHARGE, FAX DISCHARGE INFORMATION TO [facility] AT [phone]. Meño Lisbet, CASE MANAGEMENT DCP- Discharge Planning Updated by [id number]: Miguelina Mesa on 06/05/19 2:[address] Patient Name: ROSE OLSON Admission Status: ER Accout number: [id number] Admission Date: 06-05-2019 : 1940 Admission Diagnosis: Attending: TOMASA PADILLA Current LOS: 1 Anticipated DC Date: Planned Disposition: Primary Insurance: [employer] Discharge Planning Comments: CM met with patient to complete initial dc planning assessment. CM educated patient on the CM role and verbal consent given by patient to complete assessment. CM verified patient's address, phone number, and emergency contact phone numbers. Patient lives at home independently. At discharge patient plans to return home and plans to resume home health with [facility] COLT signed. CM discussed availability of home health, rehab services, and medical equipment. Patient states she uses home 02,and has portable 02 and also a nebulizer from [employer]. Patient denies any current discharge needs. CM will continue to follow and will assist as needed with dc plans/needs. Fabric Stretcher: Miguelina Mesa DCPIA - Discharge Planning Initial Assessment Updated by [id number]: Miguelina Bonita on 06/05/19 3:13 pm * Is the patient Alert and Oriented? Yes * How many steps to enter\exit or inside your home? * PCP [facility] * Pharmacy [facility] * Preadmission Environment Home Alone * ADLs Independent * List name and contact numbers for known caregivers / representatives who currently or will assist patient after discharge: TRAY ADAME - [facility] [phone] * Verbal permission to speak to the caregivers and representatives has been obtained from the patient. Yes * Community resources currently utilized Home Health * Please name any agencies selected above. [facility] * Additional services required to return to the preadmission environment? No * Can the patient safely return to the preadmission environment? Yes * Has this patient been hospitalized within the prior 30 days at any hospital? Yes Coverage Notice Reviewer: [id number] - Meño Frausto Notice Issued Date-Time: 06/12/2019 8:40 Notice Type: IM Discharge Notice Notice Delivered To: Patient Relationship to Patient: Automotive Generator Repairer Name: Delivery Method: HAND - Hand Delivered Nell Days: Prior Verbal Notification: Recipient Understood Notice: Yes Recipient Signature: Yes Med Rec Note Co-signed by Attending: Coverage Notice Comment: Last DP export: 06/12/19 9:27 am Patient Name: ROSE OLSON Page 51368 at 1258 All edits/amendments must be made on the electronic document DICTATION DATE: 06/12/19 1257 METALIZING SUPERVISOR: BETHANIE 06/12/19 1257 RPT#: [id number] DC DATE: STATUS: ADM IN [facility] [address] [place] [address] END OF REPORT
--- NOTE | 2019-06-12 13:44 | NUR ---
PT TAKEN DOWN VIA WC AND LEFT WITH FAMILY IN THEIR PERSONAL CAR.
== END 2019-06-12 13:45 | disposition home health service (06) | DRG 981 ==
LOC: D.ER 22:44 → D.M2 06-05 01:24 → D.ICU 06-05 01:24 → D.M2 06-07 14:50
PROVIDERS: Family Medicine; Internal Medicine Interventional Cardiology; ADMIT Internal Medicine Nephrology; ATTEND Internal Medicine Nephrology
PROC: 05H533Z Insertion of Infusion Device into Right Subclavian Vein, Percutaneous Approach (ICD-10-PCS; 2019-06-05)
PROC: B2151ZZ Fluoroscopy of Left Heart using Low Osmolar Contrast (ICD-10-PCS; 2019-06-08)
PROC: 4A023N7 Measurement of Cardiac Sampling and Pressure, Left Heart, Percutaneous Approach (ICD-10-PCS; 2019-06-08)
PROC: 02713EZ Dilation of Coronary Artery, Two Arteries with Two Intraluminal Devices, Percutaneous Approach (ICD-10-PCS; principal; 2019-06-08 08:30)
PROC: B2111ZZ Fluoroscopy of Multiple Coronary Arteries using Low Osmolar Contrast (ICD-10-PCS; 2019-06-08 08:30)
DX: E11.10 Type 2 diabetes mellitus with ketoacidosis without coma (principal); I21.4 Non-ST elevation (NSTEMI) myocardial infarction; I50.33 Acute on chronic diastolic (congestive) heart failure; J96.21 Acute and chronic respiratory failure with hypoxia; I13.0 Hypertensive heart and chronic kidney disease with heart failure and stage 1 through stage 4 chronic kidney disease, or unspecified chronic kidney disease; E87.1 Hypo-osmolality and hyponatremia; N17.9 Acute kidney failure, unspecified; N18.3 Chronic kidney disease, stage 3 (moderate); E11.22 Type 2 diabetes mellitus with diabetic chronic kidney disease; M19.90 Unspecified osteoarthritis, unspecified site; K21.9 Gastro-esophageal reflux disease without esophagitis; E03.9 Hypothyroidism, unspecified; J45.909 Unspecified asthma, uncomplicated; I48.91 Unspecified atrial fibrillation; E78.5 Hyperlipidemia, unspecified; E87.5 Hyperkalemia; I25.119 Atherosclerotic heart disease of native coronary artery with unspecified angina pectoris; E11.21 Type 2 diabetes mellitus with diabetic nephropathy; E83.51 Hypocalcemia

== ENCOUNTER 2019-08-25 10:28 | Inpatient (IN) | payer OTHER ==
[2019-08-25] VITALS (13 sets, daily range): BP systolic 114–169; BP diastolic 33–83; BMI 36.7
[~2019-08-25] VITALS: Ht 160 cm; Wt 94.0 kg
[~2019-08-25 10:28] MED LIST changes: +AMIODARONE HCL200 MG PO; +PLAVIX75 MG PO; +PROTONIX40 MG PO; +TUMS PO
[2019-08-25 11:17] LABS: CALC OSMOLALITY 307 mosm/kg (275-300); CALCIUM 7.3 mg/dL (8.5-10.1); CHLORIDE - SERUM 102 mmol/L (98-107); CREATININE - SERUM 2.5 mg/dL (0.6-1.3); POTASSIUM - SERUM 4.9 mmol/L (3.5-5.1); SODIUM 138 mmol/L (136-145); UREA NITROGEN 84 mg/dL (7-18); eGFR NON AFRICAN AMERICAN 20 mL/min (90-120)
[2019-08-25] MEDS ORDERED: LISINOPRIL20 MG PO (11:17)
[2019-08-25 11:19] LABS: GLUCOSE 204 mg/dL (74-106)
[2019-08-25 11:23] LABS: APTT 38.1 SECONDS (22.8-39.4); INR 2.77 (0.85-1.17); PROTIME 28.8 SECONDS (11.6-15.0)
[2019-08-25 11:31] LABS: BASOPHILS 0.3 % (0-2); EOSINOPHILS 1.2 % (0-7); IMMATURE GRANULOCYTES 0.4 % (0-5); LYMPHOCYTES 25.4 % (15-50); MCH 26.9 pg (26.0-34.0); MCHC 29.9 g/dL (31.0-37.0); MEAN PLATELET VOLUME 10.1 fL (7.4-10.4); MONOCYTES 5.1 % (2-11); NEUTROPHILS 67.6 % (40-80); PLATELET COUNT 283 10x3/uL (130-400); RBC 2.19 10x6/uL (4.00-5.40); RDW 20.3 % (11.5-14.5); WBC 7.7 10x3/uL (4.8-10.8)
[2019-08-25 11:33] LABS: ALBUMIN 3.5 g/dL (3.4-5.0); ALKALINE PHOSPHATASE 58 U/L (30-120); ALT (SGPT) 26 U/L (10-68); BILIRUBIN - TOTAL 0.61 mg/dL (0.2-1.3); CKMB 0.6 U/L (0.0-3.6); CREATINE KINASE 78 UL (21-215); MAGNESIUM - SERUM 2.1 mg/dL (1.8-2.4); PROTEIN - SERUM 6.3 g/dL (6.4-8.2); TROPONIN-I < 0.017 ng/mL (0.000-0.060)
[2019-08-25 11:34] LABS: % SATURATION 12 % (15-55); IRON 44 ug/dl (35-150); TOTAL IRON BIND CAPACITY 347 ug/dl (260-445); UNSAT IRON BIND CAPACITY 303 ug/dl (150-375)
[2019-08-25 11:36] LABS: HEMATOCRIT 19.7 % (36.0-48.0); HEMOGLOBIN 5.9 g/dL (12-16)
--- NOTE | 2019-08-25 12:13 | NUR ---
HEMEOCCULT STOOL POSITIVE FOR BLOOD.
[2019-08-25 12:14] LABS: FERRITIN 25 ng/mL (3-244); LDH 219 U/L (81-234)
[2019-08-25 12:43] LABS: BILIRUBIN NEGATIVE (NEGATIVE); GLUCOSE NEGATIVE (NEGATIVE); KETONE NEGATIVE (NEGATIVE); NITRITE NEGATIVE (NEGATIVE); UROBILINOGEN NORMAL (NORMAL)
[2019-08-25 12:44] LABS: BACTERIA FEW /hpf (NEGATIVE); EPITHELIAL CELLS 0-5 /hpf (0-5); RED CELLS - URINE NONE SEEN /hpf (0-5); WHITE CELLS - URINE 0-5 /hpf (NEGATIVE)
[2019-08-25 14:41] LABS: PATH REVIEW PERIPHERAL SMEAR REVIEWED
--- NOTE | 2019-08-25 16:00 | NUR ---
DR FERRELL IN ROOM. UPDATE GIVEN. PLANS ON DOING AN EGD. CONSENTS SIGNED. WILL CONTINUE TO MONITOR
--- NOTE | 2019-08-25 19:00 | NUR ---
SHIFT ASSESSMENT COMPLETED. PT CARE ASSUMED, MONITORS ON AND WORKING, VITALS STABLE, FFP INFUSING. PT AWAKE AND ALERT, CALL LIGHT WITHIN REACH, SEE FLOW SHEET FOR FURTHER DETIALS. WILL CONTINUE TO OBSERVE.
--- NOTE | 2019-08-25 21:00 | NUR ---
PT LYING IN BED RESTING. MONITORS ON AND WORKING, VITALS STABLE, FFP INFUSING, PT DENIES ANY COMPLAINT OF PAIN OR DISCOMFORT, CALL LIGHT WITHIN REACH, WILL CONTINUE TO OBSERVE.
--- NOTE | 2019-08-25 23:00 | NUR ---
PT ASSISTED TO BEDSIDE COMMODE, PT TOLERATED WELL, PT CLEANED AND ASSISTED BACK INTO BED, MONITORS ON AND WORKING, VITALS STABLE, SEE FLOW SHEET FOR FURTHER DETAILS. WILL CONTINUE TO OBSERVE.
[2019-08-26] VITALS (15 sets, daily range): BP systolic 121–183; BP diastolic 38–78; Ht 160 cm; Wt 94.0 kg
--- NOTE | 2019-08-26 01:00 | NUR ---
PT LYING IN BED RESTING. MONITORS ON AND WORKING, PRETTY AND BARRON BROUGHT TO PT PER PTS REQUEST, CALL LIGHT WITHIN REACH, WILL CONTINUE TO OBSERVE.
--- NOTE | 2019-08-26 03:00 | NUR ---
PT ASSISTED TO BEDSIDE COMMODE, LINEN CHANGE AND BED BATH COMPLETED AT THIS TIME, PT TOLERATED WELL, PT ASSISTED BACK INTO BED, MONITORS ON AND WORKING, VITALS STABLE. CALL LIGHT WITHIN REACH, SEE FLOW SHEET FOR FURTHER DETAILS. WILL CONTINUE TO OBSERVE.
[2019-08-26 04:30] LABS: BASOPHILS 0.2 % (0-2); EOSINOPHILS 2.4 % (0-7); IMMATURE GRANULOCYTES 0.2 % (0-5); LYMPHOCYTES 30.6 % (15-50); MCH 28.4 pg (26.0-34.0); MCHC 31.5 g/dL (31.0-37.0); MCV 90.2 fL (80.0-100.0); MEAN PLATELET VOLUME 10.2 fL (7.4-10.4); MONOCYTES 6.3 % (2-11); NEUTROPHILS 60.3 % (40-80); PLATELET COUNT 240 10x3/uL (130-400); RDW 18.1 % (11.5-14.5); WBC 9.5 10x3/uL (4.8-10.8)
[2019-08-26 04:37] LABS: ANION GAP 10.8 mmol/L (8-16); CALCIUM 7.3 mg/dL (8.5-10.1); CARBON DIOXIDE 28.6 mmol/L (21.0-32.0); CREATININE - SERUM 2.1 mg/dL (0.6-1.3); POTASSIUM - SERUM 4.4 mmol/L (3.5-5.1)
[2019-08-26 04:46] LABS: HEMATOCRIT 25.7 % (36.0-48.0); HEMOGLOBIN 8.1 g/dL (12-16); RBC 2.85 10x6/uL (4.00-5.40)
--- NOTE | 2019-08-26 05:00 | NUR ---
PT LYING IN BED RESTING, MONITORS ON AND WORKING, VITALS STABLE, CALL LIGHT WITHIN REACH, WILL CONTINUE TO OBSERVE.
--- NOTE | 2019-08-26 07:00 | NUR ---
PT REPORT RECEIVED FROM LANDSCAPE TECHNICIAN NURSE. NO ACUTE SIGNS OF DISTRESS NOTED. SHIFT ASSESSMENT COMPLETED. WILL CONTINUE TO MONITOR
--- NOTE | 2019-08-26 09:00 | NUR ---
PT RESTING IN BED. WANTS LIGHT OFF SO SHE CAN REST. STATED SHE WANTED TO TAKE A NAP.
--- NOTE | 2019-08-26 11:30 | NUR ---
CALLED REPORT TO MED SURG FLOOR. SPOKE WITH HALLIE. PREPARING TO TRANSFER PT OVER.
--- NOTE | 2019-08-26 11:40 | NUR ---
REC'D FROM ICU AT [facility] STIM E TO ROOM 2231. AWAKE AND ALERT. RESP EVEN AND UNLABORED WITH NO DISTESS NOTED. CAN EXPRESS NEEDS WANTS. NO C/O NOTED OR VOICED. DENIES ANY PAIN OR DISCOMFORT AT THIS TIME. C/L IN REACH AT BEDSIDE.
--- NOTE | 2019-08-26 11:41 | NUR ---
PT TRANSFERRED OVER TO [facility] ROOM IN WHEEL CHAIR. TOLERATED WELL.
[2019-08-26 13:07] LABS: INR 1.26 (0.85-1.17); PROTIME 15.7 SECONDS (11.6-15.0)
[2019-08-26 13:08] LABS: HEMATOCRIT 23.6 % (36.0-48.0)
[2019-08-26 13:18] LABS: HEMOGLOBIN 7.3 g/dL (12-16)
--- NOTE | 2019-08-26 16:43 | NUR ---
I have reviewed this patient and I concur with the Shift Assessment completed by the Licensed Practical Nurse today this shift.
--- NOTE | 2019-08-26 20:30 | NUR ---
PT SITTING UP IN BED WITHOUT DISTRESS, AOX4. IV LEFT AC INFUSING NS @ 100. CALL FROM LAB STATING 2U PRBC WAS READY. INITIATED FIRST UNIT. VSS. WILL CTM
--- NOTE | 2019-08-26 22:00 | NUR ---
PT INCONTINENT X3 OF BLACK LIQUID STOOLS. LINENS CHANGED AND [facility] PROVIDED
--- NOTE | 2019-08-26 23:30 | NUR ---
FIRST UNIT PRBC FINISHED. VSS. SECOND UNIT STARTED
[2019-08-27] VITALS: BP 145/44
--- NOTE | 2019-08-27 02:20 | NUR ---
SECOND UNIT PRBC FINISHED. VSS. WILL CTM
[2019-08-27 04:00] VITALS: BP 156/63
--- NOTE | 2019-08-27 07:15 | NUR ---
REC'D SITTING ON SIDE OF BED AWAKE AND ALERT. RESP EVEN AND UNLABORED WITH NO DISTRESS NOTED. CAN EXPRESS NEEDS AND WANTS. NO C/O NOTED OR VOICED. ASSESSMENT COMPLETED. C/L IN REACH AT BEDSIDE.
[2019-08-27 09:00] VITALS: BP 168/57
[2019-08-27 09:38] LABS: HEMATOCRIT 32.5 % (36.0-48.0); HEMOGLOBIN 10.4 g/dL (12-16)
[2019-08-27 10:23] LABS: BASOPHILS 0.3 % (0-2); EOSINOPHILS 4.1 % (0-7); IMMATURE GRANULOCYTES 0.3 % (0-5); MCH 29.3 pg (26.0-34.0); MCHC 31.8 g/dL (31.0-37.0); MCV 92.1 fL (80.0-100.0); MEAN PLATELET VOLUME 10.2 fL (7.4-10.4); NEUTROPHILS 62.3 % (40-80); PLATELET COUNT 223 10x3/uL (130-400); RDW 17.3 % (11.5-14.5)
[2019-08-27 10:31] LABS: HEMATOCRIT 32.7 % (36.0-48.0); HEMOGLOBIN 10.4 g/dL (12-16); RBC 3.55 10x6/uL (4.00-5.40); WBC 6.8 10x3/uL (4.8-10.8)
[2019-08-27 13:20] VITALS: BP 129/63
[2019-08-27 15:02] LABS: HEMATOCRIT 33.1 % (36.0-48.0); HEMOGLOBIN 10.4 g/dL (12-16)
[2019-08-27 16:00] VITALS: BP 169/66
--- NOTE | 2019-08-27 19:30 | NUR ---
I have reviewed this patient and I concur with the Shift Assessment completed by the Licensed Practical Nurse today this shift.
[2019-08-27 20:00] VITALS: BP 175/62
--- NOTE | 2019-08-27 20:00 | NUR ---
PT SITTING UP ON SIDE OF BED READING BOOK WITHOUT DISTRESS, AOX4. DENIES NEEDS AT THIS TIME. CL IN REACH, WILL CTM
[2019-08-27 21:46] LABS: HEMATOCRIT 31.5 % (36.0-48.0); HEMOGLOBIN 9.8 g/dL (12-16)
[2019-08-28] VITALS: BP 137/47
[2019-08-28 04:00] VITALS: BP 110/59
[2019-08-28 05:16] LABS: BASOPHILS 0.1 % (0-2); EOSINOPHILS 2.4 % (0-7); HEMATOCRIT 31.9 % (36.0-48.0); HEMOGLOBIN 9.8 g/dL (12-16); IMMATURE GRANULOCYTES 0.2 % (0-5); MCH 28.2 pg (26.0-34.0); MCHC 30.7 g/dL (31.0-37.0); MCV 91.7 fL (80.0-100.0); MEAN PLATELET VOLUME 10.2 fL (7.4-10.4); MONOCYTES 5.6 % (2-11); NEUTROPHILS 71.7 % (40-80); PLATELET COUNT 227 10x3/uL (130-400); RBC 3.48 10x6/uL (4.00-5.40); RDW 17.1 % (11.5-14.5); WBC 8.2 10x3/uL (4.8-10.8)
[2019-08-28 05:38] LABS: ANION GAP 9.8 mmol/L (8-16); CARBON DIOXIDE 25.3 mmol/L (21.0-32.0); CREATININE - SERUM 1.4 mg/dL (0.6-1.3); MAGNESIUM - SERUM 1.7 mg/dL (1.8-2.4); POTASSIUM - SERUM 4.1 mmol/L (3.5-5.1)
[2019-08-28 05:50] LABS: CALCIUM 6.6 mg/dL (8.5-10.1)
[2019-08-28 08:00] VITALS: BP 160/61
--- NOTE | 2019-08-28 08:00 | NUR ---
ALERT AND ORIENTED X4. ABDOMEN SOFT WITH BOWEL SOUNDS NOTED X4. IVF INFUSING AT PRESCRIBED RATE. TO LEFT A/C WITH NO S/S OF INFECTION/INFILTRATION. SOB NOTED WITH O2 SAT 84 % WITH AMBLATION WITH THERAPY. AMALIA THAKUR APN NOTIFIED WITH NOEW ORDER NOTED. IVF DECREASED AND INSTRUCTED ON USE OF INCENTIVE SPIROMETER.
[2019-08-28 09:37] LABS: HEMOGLOBIN 10.1 g/dL (12-16)
[2019-08-28 12:00] VITALS: BP 143/56
--- NOTE | 2019-08-28 13:56 | NUR ---
Rehab Prescreening Consult recieved and the chart has been reviewed. She is [employer] and will require a preauth. She has a PT eval and an OT eval has been ordered but pending. Once completed all infor will be submitted to her insurance for their review. Mindy Hadn RN Clinical Liaison, Rehab
[2019-08-28 15:19] LABS: HEMATOCRIT 30.1 % (36.0-48.0); HEMOGLOBIN 9.7 g/dL (12-16)
[2019-08-28 16:00] VITALS: BP 186/79
--- NOTE | 2019-08-28 16:54 | NUR ---
OT NOTE: PT COMPLETED ADL MOB FROM BED TO BATHROOM AND RETURN WITH SBA. PT COMPLETED SIT TO SUPINE WITH SBA.PT COMPLETED TOILET HYGIENE WITH SBA. [phone] THANK YOU,TANIA PAYNE
[2019-08-28 20:00] VITALS: BP 111/66
[2019-08-28 21:23] LABS: HEMATOCRIT 31.1 % (36.0-48.0); HEMOGLOBIN 10.1 g/dL (12-16)
[2019-08-29] VITALS: BP 108/67
[2019-08-29 04:00] VITALS: BP 178/61
[2019-08-29 07:03] LABS: BASOPHILS 0.2 % (0-2); EOSINOPHILS 2.2 % (0-7); HEMATOCRIT 34.3 % (36.0-48.0); HEMOGLOBIN 10.9 g/dL (12-16); IMMATURE GRANULOCYTES 0.1 % (0-5); LYMPHOCYTES 18.1 % (15-50); MCH 28.9 pg (26.0-34.0); MCHC 31.8 g/dL (31.0-37.0); MONOCYTES 6.5 % (2-11); NEUTROPHILS 72.9 % (40-80); PLATELET COUNT 232 10x3/uL (130-400); RBC 3.77 10x6/uL (4.00-5.40); RDW 16.3 % (11.5-14.5); WBC 9.7 10x3/uL (4.8-10.8)
[2019-08-29 07:32] LABS: ANION GAP 13.2 mmol/L (8-16); CALCIUM 7.1 mg/dL (8.5-10.1); CARBON DIOXIDE 27.4 mmol/L (21.0-32.0); CREATININE - SERUM 1.5 mg/dL (0.6-1.3); MAGNESIUM - SERUM 1.9 mg/dL (1.8-2.4); POTASSIUM - SERUM 3.6 mmol/L (3.5-5.1)
[2019-08-29 08:00] VITALS: BP 146/54
--- NOTE | 2019-08-29 08:00 | NUR ---
PATIENT SITTING UP ON SIDE OF THE BED. ASSESSMENT COMPLETED. INCENTIVE SPIROMETER USED AT 750 IS WHERE SHE WAS ABLE TO GO. CL IN REACH. LIGHTS TURNED ON BY REQUEST SO SHE COULD READ. BERNICETM
[2019-08-29 12:00] VITALS: BP 152/50
[2019-08-29 15:52] VITALS: BP 156/59
[2019-08-29 20:00] VITALS: BP 177/54
--- NOTE | 2019-08-29 21:47 | NUR ---
PT C/O DIARRHEA. GAVE IMMODIUM 2MG PO. CHANGED SHEET AND PAD ON BED. NO OTHER NEEDS. WILL REASSESS AND CONTINUE TO MONITOR.
[2019-08-30 00:10] VITALS: BP 170/58
[2019-08-30 05:16] VITALS: BP 143/67
[2019-08-30 05:21] LABS: BASOPHILS 0.1 % (0-2); EOSINOPHILS 2.7 % (0-7); HEMATOCRIT 30.3 % (36.0-48.0); HEMOGLOBIN 9.6 g/dL (12-16); IMMATURE GRANULOCYTES 0.1 % (0-5); LYMPHOCYTES 16.9 % (15-50); MCH 28.4 pg (26.0-34.0); MCHC 31.7 g/dL (31.0-37.0); MCV 89.6 fL (80.0-100.0); MEAN PLATELET VOLUME 9.9 fL (7.4-10.4); MONOCYTES 5.9 % (2-11); NEUTROPHILS 74.3 % (40-80); PLATELET COUNT 216 10x3/uL (130-400); RBC 3.38 10x6/uL (4.00-5.40); RDW 16.2 % (11.5-14.5); WBC 8.5 10x3/uL (4.8-10.8)
[2019-08-30 05:40] LABS: CARBON DIOXIDE 26.9 mmol/L (21.0-32.0); CREATININE - SERUM 1.3 mg/dL (0.6-1.3); MAGNESIUM - SERUM 1.6 mg/dL (1.8-2.4); POTASSIUM - SERUM 3.9 mmol/L (3.5-5.1)
[2019-08-30 05:41] LABS: CALCIUM 6.8 mg/dL (8.5-10.1)
[2019-08-30 08:00] VITALS: BP 168/58
--- NOTE | 2019-08-30 08:30 | NUR ---
PATIENT SITTING UP ON SIDE OF BED EATING BREAKFAST. NO NEEDS AT THIS TIME. TM
[2019-08-30 12:00] VITALS: BP 143/60
[2019-08-30 16:00] VITALS: BP 142/45
[2019-08-30 19:40] VITALS: BP 146/40
--- NOTE | 2019-08-30 20:00 | NUR ---
PATIENT SITTING ON SIDE OF BED. ALERT AND ORIENTED. NO SIGNS OF ACUTE DISTRESS NOTED AT THIS TIME. IV IN L AC, SLIGHTLY LEAKING, SL, NO REDNESS OR SWELLING. 2L NC. POST OP DAY #3 FROM EGD. POSSIBLE D/C TO REHAB SATURDAY OR SATURDAY THIS WEEK. BEDSIDE TABLE AND CALL LIGHT WITHIN REACH.
[2019-08-31 00:51] VITALS: BP 154/49
[2019-08-31 04:00] VITALS: BP 112/58
[2019-08-31 06:13] LABS: BASOPHILS 0.1 % (0-2); EOSINOPHILS 3.9 % (0-7); HEMATOCRIT 32.2 % (36.0-48.0); HEMOGLOBIN 10.3 g/dL (12-16); IMMATURE GRANULOCYTES 0.3 % (0-5); LYMPHOCYTES 28.5 % (15-50); MCH 28.9 pg (26.0-34.0); MCV 90.2 fL (80.0-100.0); MEAN PLATELET VOLUME 10.3 fL (7.4-10.4); MONOCYTES 5.8 % (2-11); NEUTROPHILS 61.4 % (40-80); RBC 3.57 10x6/uL (4.00-5.40); RDW 16.1 % (11.5-14.5); WBC 7.3 10x3/uL (4.8-10.8)
[2019-08-31 06:15] LABS: PLATELET COUNT 264 10x3/uL (130-400)
[2019-08-31 06:27] LABS: ANION GAP 12.3 mmol/L (8-16); CALCIUM 7.3 mg/dL (8.5-10.1); CARBON DIOXIDE 27.9 mmol/L (21.0-32.0); CREATININE - SERUM 1.5 mg/dL (0.6-1.3); POTASSIUM - SERUM 4.2 mmol/L (3.5-5.1)
[2019-08-31 06:33] LABS: MAGNESIUM - SERUM 2.1 mg/dL (1.8-2.4)
--- NOTE | 2019-08-31 07:39 | NUR ---
PT AWAKE AND ORIENED SITTING ON SIDE OF EBD. STATES SHE WILL LIKELY GO TO REHAB TODAY, EVEN THOUGH SHED RATHER GO HOME. NO COMPLAINTS OR CONCERNS, ALL QUESTIONS ANSWERD TO THE BEST OF MY ABILITY. CL IN REACH, SRX2.
[2019-08-31 09:07] VITALS: BP 185/59
--- NOTE | 2019-08-31 09:31 | NUR ---
PT ALERT AND ORIENENTED, RESTING PEACEFULLY BUT WOKE EASILY WHEN I ENTERED ROOM. TOOK MEDICATIONS WITHOUT COMPLICATIONS. NO COMPLAINTS OR CONCERNS, SHE IS STILL HOPEFUL TO BE LEAVING FOR SOMEWHERE TODAY. CL IN REACH, SRX2.
--- NOTE | 2019-08-31 09:56 | NUR ---
PT I/V INFILTRATED, PT REQUESTS WE WAIT TO START A NEW ONE UNTIL THE ROUNDS AND LETS US KNOW WHERE SHE IS GOING TODAY. WILL CNT. TO MONITOR. CL IN REACH,S RX2.
--- NOTE | 2019-08-31 11:44 | NUR ---
PT AWAKE AND ORIENTED, SITTING UP WATCHING TELIVISON. NO COMPLAINTS RO CONCERNS, ALL QUESTIONS ANSWERED. WILL CNT. TO MONITOR FOR D/C PLANNING. CL IN REACH
[2019-08-31 12:26] VITALS: BP 161/47
--- NOTE | 2019-08-31 14:59 | NUR ---
PT AWAKE AND OREITEND, NO COMPLAINTS OR CONCERNS AT THIS TIME. CL IN REACH, SRX2.
[2019-08-31 17:10] VITALS: BP 122/53
--- NOTE | 2019-08-31 20:10 | NUR ---
PATIENT SITTING IN BEDSIDE CHAIR. ALERT AND ORIENTED. PATIENT STATES SHE WOULD LIKE SOME ICE WATER, BUT HAS NO FURTHER NEEDS AT THIS TIME. NO IV. 2L NC. BEDSIDE TABLE AND CALL LIGHT IN REACH. WILL CONTINUE TO MONITOR.
[2019-08-31 20:45] VITALS: BP 172/51
[2019-09-01 05:15] LABS: BASOPHILS 0.5 % (0-2); EOSINOPHILS 4.6 % (0-7); HEMATOCRIT 31.9 % (36.0-48.0); IMMATURE GRANULOCYTES 0.2 % (0-5); LYMPHOCYTES 25.4 % (15-50); MCH 28.2 pg (26.0-34.0); MCHC 31.3 g/dL (31.0-37.0); MCV 90.1 fL (80.0-100.0); MEAN PLATELET VOLUME 9.9 fL (7.4-10.4); MONOCYTES 7.5 % (2-11); NEUTROPHILS 61.8 % (40-80); PLATELET COUNT 264 10x3/uL (130-400); RBC 3.54 10x6/uL (4.00-5.40); RDW 15.9 % (11.5-14.5); WBC 5.8 10x3/uL (4.8-10.8)
[2019-09-01 05:27] VITALS: BP 113/38
[2019-09-01 05:30] LABS: ANION GAP 13.5 mmol/L (8-16); CALCIUM 7.1 mg/dL (8.5-10.1); CARBON DIOXIDE 27.1 mmol/L (21.0-32.0); CREATININE - SERUM 1.4 mg/dL (0.6-1.3); MAGNESIUM - SERUM 1.8 mg/dL (1.8-2.4); POTASSIUM - SERUM 4.6 mmol/L (3.5-5.1)
--- NOTE | 2019-09-01 08:03 | NUR ---
ALERT AND ORIENTED. LUNGS CLEAR BILATERALLY. HEART SOUNDS S1 AND S2 HEARD IN ALL GRAVES. BOWEL SOUNDS ACTIVE X 4. SKIN INTACT WITHOUT REDNESS. STATES SUPPOSED TO DC TODAY. DENIES NEEDS. BED LOW. CALL MERCER AND PERSONAL ITEMS IN REACH. WILL CONTINUE TO MONITOR.
[2019-09-01 08:08] VITALS: BP 177/51
--- NOTE | 2019-09-01 09:45 | NUR ---
SPOKE WITH DANIELA MENDOZA TO NOTIFY THAT PATIENT HAS ABX DUE BUT DOES NOT WANT IV AND STATES IS GOING TO REHAB. DANIELA STATES WILL CHECK TO SEE IF PT HAS BEEN ACCEPTED TO REHAB FOR POSSIBLE DC.
[2019-09-01 12:29] VITALS: BP 189/70
--- NOTE | 2019-09-01 14:28 | NUR ---
PATIENT INSURANCE STILL PENDING FOR ACCEPTANCE TO REHAB. [facility]EL[facility] AT [facility] STATES PATIENT NEEDS IV SINCE SILL HERE. WILL ATTEMPT IV.
--- NOTE | 2019-09-01 16:13 | NUR ---
Rehab Note- Have submitted more clinicals this AM to [facility], fareed ped=neal Olmedo at this time. Noted this afternoon that the patient has been s/o per PT up ad kike. Thank you for this referral! Muriel Orlando RN Clinical Liaison, [facility] Rehab
--- NOTE | 2019-09-01 16:39 | MORECARE ---
CASE MANAGEMENT DISCHARGE SUMMARY PATIENT: ROSE OLSON UNIT: [id number] ADM DATE: 08/25/19 AGE: 79 : 38 SEX: F ROOM/BED: D.2231 AUTHOR: ZACKARY DEL VALLE PHYSICIAN: REFERRING PHYSICIAN: TOMASA PADILLA MD DATE OF SERVICE: 09/01/19 Discharge Plan Patient Name: ROSE OLSON [facility] [facility] 1940 Planned Disposition: Inpatient Rehab Anticipated Discharge Date: Discharge Date: Expected LOS: Initial Reviewer: [email or web address] Initial Review Date: 09/01/2019 Generated: 09/01/19 5:38 pm DCPIA - Discharge Planning Initial Assessment Updated by [id number]: Aydee Krishnan on 09/01/19 4:36 pm * Is the patient Alert and Oriented? Yes * PCP [facility] * Pharmacy [facility] * Preadmission Environment Home Alone * ADLs Independent * Community resources currently utilized Home Health * Please name any agencies selected above. [facility] * Additional services required to return to the preadmission environment? Yes * Can the patient safely return to the preadmission environment? No * Has this patient been hospitalized within the prior 30 days at any hospital? No Patient Name: ROSE OLSON Page [phone] at 1639 All edits/amendments must be made on the electronic document DICTATION DATE: 09/01/191637 HOT STICK MAN: BETHANIE 09/01/19 1638 RPT#: [id number] DC DATE: STATUS: ADM IN [facility] [address] [place] [address] END OF REPORT
--- NOTE | 2019-09-01 16:40 | NUR ---
BP 191/67. DANIELA HOWELL PAGED.
--- NOTE | 2019-09-01 16:46 | MORECARE ---
CASE MANAGEMENT DISCHARGE SUMMARY PATIENT: ROSE OLSON UNIT: [id number] ADM DATE: 08/25/19 AGE: 79 : 38 SEX: F ROOM/BED: D.2231 AUTHOR: IVON,DOC PHYSICIAN: REFERRING PHYSICIAN: TOMASA PADILLA MD DATE OF SERVICE: 09/01/19 Discharge Plan Patient Name: ROSE OLSON Facility: [facility]:[place] : 1940 Planned Disposition: Inpatient Rehab Anticipated Discharge Date: Discharge Date: Expected LOS: Initial Reviewer: [email or web address] Initial Review Date: 09/01/2019 Generated: 09/01/19 5:45 pm Comments DCP- Discharge Planning Updated by [email or web address]: Aydee Krishnan on 09/01/19 3:[address] Patient Name: ROSE OLSON Admission Status: ER Accout number: [id number] Admission Date: 08-25-2019 : 1940 Admission Diagnosis:GASTROINTESTINAL HEMORRHAGE, UNSPECIFIED Attending: TOMASA PADILLA Current LOS: 7 Anticipated DC Date: Planned Disposition: Inpatient Rehab Primary Insurance: [email or web address] Discharge Planning Comments: CM met with patient at bedside after explaining CM role and obtaining verbal consent. CM discussed availability / needs of home health, REHAB and medical equipment. COLT SIGNED [facility]. WAITING ON INSURANCE AUTH. CM TO FOLLOW AND ASSIST NEEDED. Four Slide Machine Operator: Aydee Krishnan DCPIA - Discharge Planning Initial Assessment Updated by [email or web address]: Aydee Krishnan on 09/01/19 4:36 pm * Is the patient Alert and Oriented? Yes * PCP [facility] * Pharmacy [facility] * Preadmission Environment Home Alone * ADLs Independent * Community resources currently utilized Home Health * Please name any agencies selected above. [facility] * Additional services required to return to the preadmission environment? Yes * Can the patient safely return to the preadmission environment? No * Has this patient been hospitalized within the prior 30 days at any hospital? No Coverage Notice Reviewer: [email or web address] - Aydee Krishnan Notice Issued Date-Time: 09/01/2019 16:39 Notice Type: Patient Choice Letter Notice Delivered To: Patient Relationship to Patient: Odd Bundle Worker Name: Delivery Method: HAND - Hand Delivered Nell Days: Prior Verbal Notification: Recipient Understood Notice: Yes Recipient Signature: Yes Med Rec Note Co-signed by Attending: Coverage Notice Comment: IPR Last DP export: 09/01/19 3:39 p Patient Name: ROSE OLSON Page 05409 at 1646 All edits/amendments must be made on the electronic document DICTATION DATE: 09/01/191644 INSTRUMENT PERSON: BETHANIE 09/01/191644 RPT#: [id number] DC DATE: STATUS: ADM IN [facility] [address] [place] [address] END OF REPORT
[2019-09-01 17:47] VITALS: BP 191/67
--- NOTE | 2019-09-01 19:30 | NUR ---
PT SITTING UP IN BEDSIDE CHAIR READING BOOK, WITHOUT DISTRESS. AOX4. IV LEFT AC SL. DENIES NEEDS AT THIS TIME. CL IN REACH, WILL CTM
[2019-09-01 20:00] VITALS: BP 160/67
[2019-09-02 04:00] VITALS: BP 115/64
[2019-09-02 07:24] LABS: BASOPHILS 0.4 % (0-2); EOSINOPHILS 4.9 % (0-7); HEMATOCRIT 34.4 % (36.0-48.0); HEMOGLOBIN 10.9 g/dL (12-16); IMMATURE GRANULOCYTES 0.2 % (0-5); LYMPHOCYTES 32.7 % (15-50); MCH 28.4 pg (26.0-34.0); MCHC 31.7 g/dL (31.0-37.0); MCV 89.6 fL (80.0-100.0); MEAN PLATELET VOLUME 10.1 fL (7.4-10.4); MONOCYTES 7.2 % (2-11); NEUTROPHILS 54.6 % (40-80); PLATELET COUNT 312 10x3/uL (130-400); RBC 3.84 10x6/uL (4.00-5.40); RDW 15.7 % (11.5-14.5); WBC 5.7 10x3/uL (4.8-10.8)
--- NOTE | 2019-09-02 07:30 | NUR ---
AWAKE AND ALERT. ORIENTED X3. NO C/O AT THIS TIME. LUNGS ARE CLEAR BILATERALLY, NO COUGH NOTED. SKIN IS INTACT WITHOUT REDNESS. SL TO LEFT AC IS PATENT WITHOUT REDNESS AT INSERTION SITE. DENIES PAIN OR DISCOMFORT. NO NEEDS NOTED.
[2019-09-02 07:50] LABS: ANION GAP 11.6 mmol/L (8-16); BILIRUBIN - TOTAL 0.32 mg/dL (0.2-1.3); CALCIUM 7.8 mg/dL (8.5-10.1); CARBON DIOXIDE 29.9 mmol/L (21.0-32.0); CREATININE - SERUM 1.4 mg/dL (0.6-1.3); POTASSIUM - SERUM 4.5 mmol/L (3.5-5.1); PROTEIN - SERUM 6.6 g/dL (6.4-8.2)
[2019-09-02 08:00] VITALS: BP 172/45
--- NOTE | 2019-09-02 09:00 | NUR ---
ATE MOST OF BREAKFAST WITHOUT C/O PAIN OR NAUSEA. TOOK AM MEDS WITHOUT DIFFICULTY. DENIES NEEDS. UP TO BR PER SELF. VOIDED WITHOUT DIFFICULTY.
--- NOTE | 2019-09-02 11:24 | NUR ---
Recieved a call from Tova with [facility]. The director of math has denied ARU for this patient. If physician feels he would like to do a peer to peer it must be scheduled with Nell by calling [phone]. Relayed to the IDT team. Mindy Hand RN Clinical liaison, Rehab
--- NOTE | 2019-09-02 11:54 | MORECARE ---
CASE MANAGEMENT DISCHARGE SUMMARY PATIENT: ROSE OLSON UNIT: [id number] ADM DATE: 08/25/19 AGE: 79 : 38 SEX: F ROOM/BED: D.2231 AUTHOR: IVONDOC PHYSICIAN: REFERRING PHYSICIAN: TOMASA PADILLA MD DATE OF SERVICE: 09/02/19 Discharge Plan Patient Name: ROSE OSLON Facility: [facility]:[place] : 1940 Planned Disposition: Inpatient Rehab Anticipated Discharge Date: Discharge Date: Expected LOS: Initial Reviewer: [id number] Initial Review Date: 09/01/2019 Generated: 09/02/19 12:53 pm Comments DCP- Discharge Planning Updated by [email or web address]: Aydee Krishnan on 09/02/19 10:[address] Patient Name: ROSE OLSON Admission Status: ER Accout number: [id number] Admission Date: 08-25-2019 : 1940 Admission Diagnosis:GASTROINTESTINAL HEMORRHAGE, UNSPECIFIED Attending: TOMASA PADILLA Current LOS: 8 Anticipated DC Date: Planned Disposition: Inpatient Rehab Primary Insurance: NOVASYSMCR Discharge Planning Comments: CM SPOKE WITH PATIENT AND SHE WANTS TO GO HOME AND [facility] . [facility] WAS DENIED BY HER INSURANCE. IMM SIGNED. CM WILL FAX CLINICALS TO [facility] FOR RESUMPTION OF CARE. Cardiovascular Surgical Tech: Aydee Krishnan DCP- Discharge Planning Updated by [email or web address]: Aydee Krishnan on 09/01/19 3:[address] Patient Name: ROSE OLSON Admission Status: ER Accout number: [id number] Admission Date: 08-25-2019 : 1940 Admission Diagnosis:GASTROINTESTINAL HEMORRHAGE, UNSPECIFIED Attending: TOMASA PADILLA Current LOS: 7 Anticipated DC Date: Planned Disposition: Inpatient Rehab Primary Insurance: NOVASYSMCR Discharge Planning Comments: CM met with patient at bedside after explaining CM role and obtaining verbal consent. CM discussed availability / needs of home health, REHAB and medical equipment. COLT SIGNED FOR [facility]. WAITING ON INSURANCE AUTH. CM TO FOLLOW AND ASSIST NEEDED. Cardiovascular Surgical Tech: Aydee Krishnan DCPIA - Discharge Planning Initial Assessment Updated by [email or web address]: Aydee Krishnan on 09/01/19 4:36 pm * Is the patient Alert and Oriented? Yes * PCP [facility] * [facility] * Preadmission Environment Home Alone * ADLs Independent * Community resources currently utilized Home Health * Please name any agencies selected above. [facility] * Additional services required to return to the preadmission environment? Yes * Can the patient safely return to the preadmission environment? No * Has this patient been hospitalized within the prior 30 days at any hospital? No Coverage Notice Reviewer: [id number] Cordell Krishnan Notice Issued Date-Time: 09/01/2019 16:39 Notice Type: Patient Choice Letter Notice Delivered To: Patient Relationship to Patient: Restaurant Kitchen Manager Name: Delivery Method: HAND - Hand Delivered Nell Days: Prior Verbal Notification: Recipient Understood Notice: Yes Recipient Signature: Yes Med Rec Note Co-signed by Attending: Coverage Notice Comment: [facility] Reviewer: [id number] Cordell Krishnan Notice Issued Date-Time: 09/02/2019 11:52 Notice Type: IM Discharge Notice Notice Delivered To: Patient Relationship to Patient: Restaurant Kitchen Manager Name: Delivery Method: HAND - Hand Delivered Nell Days: Prior Verbal Notification: Recipient Understood Notice: Yes Recipient Signature: Yes Med Rec Note Co-signed by Attending: Coverage Notice Comment: Last DP export: 09/01/19 3:46 p Patient Name: ROSE OLSON Page 31234 at 1154 All edits/amendments must be made on the electronic document DICTATION DATE: 09/02/19 1153 PAN WASHER: BETHANIE 09/02/19 1153 RPT#: [id number] DC DATE: STATUS: ADM IN [facility] [address] [place] [address] END OF REPORT
[2019-09-02 12:00] VITALS: BP 136/64
[2019-09-02] MEDS ORDERED: XARELTO20 MG PO (12:01)
[2019-09-02] MEDS ORDERED: CARAFATE1 G PO (12:02)
[2019-09-02] MEDS ORDERED: PROTONIX40 MG PO (12:02)
[2019-09-02] MEDS ORDERED: CIPRO500 MG PO (12:03)
[2019-09-02] MEDS ORDERED: FERROUS SULFAT325 MG PO (12:04)
--- NOTE | 2019-09-02 12:30 | NUR ---
RECEIVED DISCHARGE ORDERS. WAITING ON RIDE TO D/C HOME.
--- NOTE | 2019-09-02 13:30 | NUR ---
ATE MOST OF LUNCH. DENIES NEEDS.
--- NOTE | 2019-09-02 14:27 | MORECARE ---
CASE MANAGEMENT DISCHARGE SUMMARY PATIENT: ROSE OLSON UNIT: [id number] ADM DATE: 08/25/19 AGE: 79 : 38 SEX: F ROOM/BED: D.2231 AUTHOR: IVONDOC PHYSICIAN: REFERRING PHYSICIAN: TOMASA PADILLA MD DATE OF SERVICE: 09/02/19 Discharge Plan Patient Name: ROSE OLSON Facility: [facility]:[place] : 1940 Planned Disposition: Inpatient Rehab Anticipated Discharge Date: Discharge Date: Expected LOS: Initial Reviewer: [id number] Initial Review Date: 09/01/2019 Generated: 09/02/19 3:26 pm Comments DCP- Discharge Planning Updated by [id number]: Aydee Krishnan on 09/02/19 10:[address] Patient Name: ROSE OLSON Admission Status: ER Accout number: [id number] Admission Date: 08-25-2019 : 1940 Admission Diagnosis:GASTROINTESTINAL HEMORRHAGE, UNSPECIFIED Attending: TOMASA PADILLA Current LOS: 8 Anticipated DC Date: Planned Disposition: Inpatient Rehab Primary Insurance: NOVASYSMCR Discharge Planning Comments: CM SPOKE WITH PATIENT AND SHE WANTS TO GO HOME AND RESUME [facility] . [facility] WAS DENIED BY HER INSURANCE. IMM SIGNED. CM WILL FAX CLINICALS TO [facility] FOR RESUMPTION OF CARE. Unit Aide Tech: Aydee Krishnan DCP- Discharge Planning Updated by [id number]: Aydee Krishnan on 09/01/19 3:[address] Patient Name: ROSE OLSON Admission Status: ER Accout number: [id number] Admission Date: 08-25-2019 : 1940 Admission Diagnosis:GASTROINTESTINAL HEMORRHAGE, UNSPECIFIED Attending: TOMASA PADILLA Current LOS: 7 Anticipated DC Date: Planned Disposition: Inpatient Rehab Primary Insurance: NOVASYSMCR Discharge Planning Comments: CM met with patient at bedside after explaining CM role and obtaining verbal consent. CM discussed availability / needs of home health, REHAB and medical equipment. COLT SIGNED FOR [facility]. WAITING ON INSURANCE AUTH. CM TO FOLLOW AND ASSIST NEEDED. Unit Aide Tech: Aydee Krishnan DCPIA - Discharge Planning Initial Assessment Updated by [email or web address]: Aydee Krishnan on 09/01/19 4:36 pm * Is the patient Alert and Oriented? Yes * PCP [facility] * [facility] * Preadmission Environment Home Alone * ADLs Independent * Community resources currently utilized Home Health * Please name any agencies selected above. [facility] * Additional services required to return to the preadmission environment? Yes * Can the patient safely return to the preadmission environment? No * Has this patient been hospitalized within the prior 30 days at any hospital? No External Providers External Provider: [facility] Next Contact Date: Service Request Date: Service Type: Resolution: Reviewer: Comments: Coverage Notice Reviewer: [id number] Cordell Krishnan Notice Issued Date-Time: 09/01/2019 16:39 Notice Type: Patient Choice Letter Notice Delivered To: Patient Relationship to Patient: Filter Changer Name: Delivery Method: HAND - Hand Delivered Nell Days: Prior Verbal Notification: Recipient Understood Notice: Yes Recipient Signature: Yes Med Rec Note Co-signed by Attending: Coverage Notice Comment: [facility] Reviewer: [id number] Cordell Krishnan Notice Issued Date-Time: 09/02/2019 11:52 Notice Type: IM Discharge Notice Notice Delivered To: Patient Relationship to Patient: Filter Changer Name: Delivery Method: HAND - Hand Delivered Nell Days: Prior Verbal Notification: Recipient Understood Notice: Yes Recipient Signature: Yes Med Rec Note Co-signed by Attending: Coverage Notice Comment: Last DP export: 09/02/19 10:54 a Patient Name: ROSE OLSON Page 27419 at 1427 All edits/amendments must be made on the electronic document DICTATION DATE: 09/02/191425 VIDEO ENGINEER: BETHANIE 09/02/19 142 RPT#: [id number] DC DATE: STATUS: ADM IN [facility] [address] [place] [address] END OF REPORT
--- NOTE | 2019-09-02 15:00 | NUR ---
SITTING UP IN [facility] AT BEDSIDE. DENIES NEEDS.
--- NOTE | 2019-09-02 16:30 | NUR ---
DISCHARGE INSTRUCTIONS GIVEN BOTH VERBALLY AND WRITTEN. ALL QUESTIONS ANSWERED. PATIENT VERBALIZED UNDERSTANDING OF SAME. SL TO LEFT AC D/C WITH CATHETER INTACT. WAITING ON RIDE AT THIS TIME.
--- NOTE | 2019-09-02 16:48 | NUR ---
DISCHARGED TO HOME AMBULATORY WITH SISTER. ALL BELONGINGS WITH PATIENT.
--- NOTE | 2019-09-03 09:07 | MORECARE ---
CASE MANAGEMENT DISCHARGE SUMMARY PATIENT: ROSE OLSON UNIT: [id number] ADM DATE: 08/25/19 AGE: 79 : 38 SEX: F ROOM/BED: D.2231 AUTHOR: IVON,DOC PHYSICIAN: REFERRING PHYSICIAN: TOMASA PADILLA MD DATE OF SERVICE: 09/03/19 Discharge Plan Patient Name: ROSE OLSON Facility: [facility]:[place] : 1940 Planned Disposition: Inpatient Rehab Anticipated Discharge Date: Discharge Date: 09/02/2019 Expected LOS: Initial Reviewer: [id number] Initial Review Date: 09/01/2019 Generated: 09/03/19 10:06 am Comments DCP- Discharge Planning Updated by [id number]: Aydee Krishnan on 09/02/19 10:[address] Patient Name: ROSE OLSON Admission Status: ER Accout number: [id number] Admission Date: 08-25-2019 : 1940 Admission Diagnosis:GASTROINTESTINAL HEMORRHAGE, UNSPECIFIED Attending: TOMASA PADILLA Current LOS: 8 Anticipated DC Date: Planned Disposition: Inpatient Rehab Primary Insurance: NOVASYSMCR Discharge Planning Comments: CM SPOKE WITH PATIENT AND SHE WANTS TO GO HOME AND [facility] . [facility] WAS DENIED BY HER INSURANCE. IMM SIGNED. CM WILL FAX CLINICALS TO [facility] FOR RESUMPTION OF CARE. Workers' Compensation Commissioner: Aydee Krishnan DCP- Discharge Planning Updated by [id number]: Adyee Krishnan on 09/01/19 3:[address] Patient Name: ROSE OLSON Admission Status: ER Accout number: [id number] Admission Date: 08-25-2019 : 1940 Admission Diagnosis:GASTROINTESTINAL HEMORRHAGE, UNSPECIFIED Attending: TOMASA PADILLA Current LOS: 7 Anticipated DC Date: Planned Disposition: Inpatient Rehab Primary Insurance: NOVASYSMCR Discharge Planning Comments: CM met with patient at bedside after explaining CM role and obtaining verbal consent. CM discussed availability / needs of home health, REHAB and medical equipment. COLT SIGNED FOR [facility]. WAITING ON INSURANCE AUTH. CM TO FOLLOW AND ASSIST NEEDED. Workers' Compensation Commissioner: Aydee Krishnan DCPIA - Discharge Planning Initial Assessment Updated by [id number]: Aydee Krishnan on 09/01/19 4:36 pm * Is the patient Alert and Oriented? Yes * PCP [facility] * [facility] * Preadmission Environment Home Alone * ADLs Independent * Community resources currently utilized Home Health * Please name any agencies selected above. [facility] * Additional services required to return to the preadmission environment? Yes * Can the patient safely return to the preadmission environment? No * Has this patient been hospitalized within the prior 30 days at any hospital? No Coverage Notice Reviewer: [id number] Cordell Krishnan Notice Issued Date-Time: 09/01/2019 16:39 Notice Type: Patient Choice Letter Notice Delivered To: Patient Relationship to Patient: Gas Stove Servicer Helper Name: Delivery Method: HAND - Hand Delivered Nell Days: Prior Verbal Notification: Recipient Understood Notice: Yes Recipient Signature: Yes Med Rec Note Co-signed by Attending: Coverage Notice Comment: [facility] Reviewer: [id number] Cordell Krishnan Notice Issued Date-Time: 09/02/2019 11:52 Notice Type: IM Discharge Notice Notice Delivered To: Patient Relationship to Patient: Gas Stove Servicer Helper Name: Delivery Method: HAND - Hand Delivered Nell Days: Prior Verbal Notification: Recipient Understood Notice: Yes Recipient Signature: Yes Med Rec Note Co-signed by Attending: Coverage Notice Comment: Last DP export: 09/02/19 1:27 p Patient Name: ROSE OLSON Page 47823 at 0907 All edits/amendments must be made on the electronic document DICTATION DATE: 09/03/19905 DATABASE SUPPORT: BETHANIE 09/03/19905 RPT#: [id number] DC DATE:09/02/19 STATUS: DIS IN [facility] [address] [place] [address] END OF REPORT
== END 2019-09-02 16:49 | disposition home health service (06) | DRG 377 ==
LOC: D.ER 10:28 → D.ICU 12:52 → D.MS 12:52
PROVIDERS: Family Medicine; Internal Medicine Gastroenterology; ADMIT Internal Medicine Nephrology; ATTEND Internal Medicine Nephrology
PROC: 0W3P8ZZ Control Bleeding in Gastrointestinal Tract, Via Natural or Artificial Opening Endoscopic (ICD-10-PCS; principal; 2019-08-25 16:00)
DX: K92.2 Gastrointestinal hemorrhage, unspecified (principal); I50.33 Acute on chronic diastolic (congestive) heart failure; D62 Acute posthemorrhagic anemia; I13.0 Hypertensive heart and chronic kidney disease with heart failure and stage 1 through stage 4 chronic kidney disease, or unspecified chronic kidney disease; J96.12 Chronic respiratory failure with hypercapnia; J96.11 Chronic respiratory failure with hypoxia; N39.0 Urinary tract infection, site not specified; N18.3 Chronic kidney disease, stage 3 (moderate); E03.9 Hypothyroidism, unspecified; E78.5 Hyperlipidemia, unspecified; I25.10 Atherosclerotic heart disease of native coronary artery without angina pectoris; E11.22 Type 2 diabetes mellitus with diabetic chronic kidney disease; K21.0 Gastro-esophageal reflux disease with esophagitis; K44.9 Diaphragmatic hernia without obstruction or gangrene; E11.40 Type 2 diabetes mellitus with diabetic neuropathy, unspecified; R53.81 Other malaise; M19.90 Unspecified osteoarthritis, unspecified site; I48.91 Unspecified atrial fibrillation; J43.9 Emphysema, unspecified

== ENCOUNTER → 2019-09-23 13:37 | Outpatient (CLI) | payer OTHER ==
[2019-08-26 08:14] VITALS: BMI 36.7
[~2019-09-23 13:37] MED LIST changes: +CARAFATE1 G PO; +CIPRO500 MG PO; +FERROUS SULFAT325 MG PO; +LISINOPRIL20 MG PO; +XARELTO20 MG PO
== END | disposition home or self-care (01) ==
LOC: D.LABREF 13:37
PROVIDERS: ATTEND Internal Medicine Pulmonary Disease
DX: Z11.59 Encounter for screening for other viral diseases (principal)

== ENCOUNTER → 2019-09-25 13:34 | Outpatient (CLI) | payer OTHER ==
[2019-08-26 08:14] VITALS: BMI 36.7
== END | disposition home or self-care (01) ==
LOC: D.RT 13:34
PROVIDERS: ATTEND Internal Medicine Pulmonary Disease
DX: J44.9 Chronic obstructive pulmonary disease, unspecified (principal)

== ENCOUNTER 2020-07-29 11:10 | Inpatient (IN) | payer OTHER ==
[~2020-07-29] VITALS: Ht 160 cm; Wt 103.7 kg
[2020-07-29 11:21] VITALS: BP 143/69
[2020-07-29 11:32] LABS: BASOPHILS 0.1 % (0-2); EOSINOPHILS 0.2 % (0-7); HEMATOCRIT 40.2 % (36.0-48.0); IMMATURE GRANULOCYTES 0.4 % (0-5); LYMPHOCYTE ABS# 1.09 10x3/uL (1.18-3.74); LYMPHOCYTES 13.2 % (15-50); MCH 26.1 pg (26.0-34.0); MCHC 32.3 g/dL (31.0-37.0); MCV 80.6 fL (80.0-100.0); MEAN PLATELET VOLUME 10.8 fL (7.4-10.4); MONOCYTES 4.8 % (2-11); NEUTROPHILS 81.3 % (40-80); PLATELET COUNT 265 10x3/uL (130-400); RBC 4.99 10x6/uL (4.00-5.40); WBC 8.3 10x3/uL (4.8-10.8)
[2020-07-29 11:43] LABS: APTT 28.6 SECONDS (22.8-39.4); INR 1.1 (0.85-1.17); PROTIME 13.1 SECONDS (11.6-15.0)
[2020-07-29 11:54] LABS: ALBUMIN 3.2 g/dL (3.4-5.0); ALKALINE PHOSPHATASE 126 U/L (30-120); ALT (SGPT) 26 U/L (10-68); BILIRUBIN - TOTAL 0.46 mg/dL (0.2-1.3); CALC OSMOLALITY 300 mosm/kg (275-300); CARBON DIOXIDE 25.3 mmol/L (21.0-32.0); CHLORIDE - SERUM 104 mmol/L (98-107); CREATININE - SERUM 3.3 mg/dL (0.6-1.3); GLUCOSE 94 mg/dL (74-106); MAGNESIUM - SERUM 2.3 mg/dL (1.8-2.4); POTASSIUM - SERUM 4.8 mmol/L (3.5-5.1); PROTEIN - SERUM 6.5 g/dL (6.4-8.2); SODIUM 142 mmol/L (136-145); THYROID STIMULATING HORMONE 8.06 uIU/mL (0.36-3.74); TROPONIN-I < 0.017 ng/mL (0.000-0.060); UREA NITROGEN 63 mg/dL (7-18); eGFR NON AFRICAN AMERICAN 14 mL/min (90-120)
[2020-07-29 11:55] LABS: CALCIUM 5.7 mg/dL (8.5-10.1)
[2020-07-29 13:52] VITALS: BP 137/84
[2020-07-29 15:06] VITALS: BP 124/51
--- NOTE | 2020-07-29 15:16 | NUR ---
ARRIVE TO FLOOR VIA STRETCHER. IN BED. VS STABLE AND CHARTED. CALL LIGHT IN REACH.
[2020-07-29 15:48] VITALS: BP 124/51; BMI 38.1
--- NOTE | 2020-07-29 18:15 | NUR ---
PATIENT SUGAR WAS 44, SOME TINGLING OF THE LIPS BUT AWAKE AND TALKING. GAVE 2 CUPS OF ORANGE JUICE WITH SUGAR MIXED IN. RECHEKCED SUGAR IN APPROX 30 MINUTES AND IT WAS 104. RESTING IN BED.
[2020-07-29 21:11] VITALS: BP 122/49
[2020-07-29 23:20] VITALS: BP 105/53
--- NOTE | 2020-07-30 00:45 | NUR ---
ASSESSED AT THE BEGINNING OF THE SHIFT. PT IS ALERT AND ORIENTED, ABLE TO VERBALIZE NEEDS. HER BLOOD SUGAR WAS 146 WHEN TAKEN FOR HS AND SHE DID NOT GET ANY INSULIN. SHE RECEIVED CORDARONE AT HS AND FROM THAT POINT ON HER HR SEEMS TO DROP TO SINUS REBEL 30-40. SHE HAS BEEN A SYMPTOMATIC BUT DID REQUEST TYLENOL FOR PAINFULL KNEES WHICH SHE HAS BEEN DEALING WITH. MOST OF THE TIME IT IS A HR OF 32-36 BUT WHEN TELEMETRY CALLED AND STATED IT HAD DROPPED TO [address] MARTÍNEZ WAS CALLED AND HIS ORDERS WERE TO CONTINUE TO WATCH WITH TELEMETRY. T THIS TIME SHE IS RESTING QUIET AND THE EKG FWE RAN DID NOT CHANGE EXCEPT FOR THE RATE.
[2020-07-30 03:38] VITALS: BP 105/54
[2020-07-30 06:18] LABS: BASOPHILS 0.1 % (0-2); EOSINOPHILS 0.7 % (0-7); HEMATOCRIT 33.5 % (36.0-48.0); HEMOGLOBIN 10.4 g/dL (12-16); IMMATURE GRANULOCYTES 0.3 % (0-5); LYMPHOCYTES 23.5 % (15-50); MCH 25.4 pg (26.0-34.0); MCV 81.7 fL (80.0-100.0); MEAN PLATELET VOLUME 10.9 fL (7.4-10.4); MONOCYTES 8.9 % (2-11); NEUTROPHIL ABS# 4.53 10x3/uL (1.56-6.13); NEUTROPHILS 66.5 % (40-80); PLATELET COUNT 232 10x3/uL (130-400); RDW 18.1 % (11.5-14.5); WBC 6.8 10x3/uL (4.8-10.8)
--- NOTE | 2020-07-30 07:10 | NUR ---
Lying in bed, awake/alert/oriented, T/R self ad kike, cont of B/B with BRPs per self with assist ad kike, denies pain/other discomfort at this time, call light/phone/water within reach, no s/s of acute distress observed.
[2020-07-30 07:12] LABS: ALBUMIN 2.5 g/dL (3.4-5.0); BILIRUBIN - TOTAL 0.49 mg/dL (0.2-1.3); CARBON DIOXIDE 24.5 mmol/L (21.0-32.0); CREATININE - SERUM 3.4 mg/dL (0.6-1.3); PHOSPHOROUS 6.8 mg/dL (2.5-4.9); PROTEIN - SERUM 5.3 g/dL (6.4-8.2); URIC ACID 5.9 mg/dL (2.6-7.2)
[2020-07-30 07:19] LABS: ANION GAP 16.2 mmol/L (8-16); POTASSIUM - SERUM 5.7 mmol/L (3.5-5.1)
[2020-07-30 07:23] LABS: CALCIUM 5.6 mg/dL (8.5-10.1)
--- NOTE | 2020-07-30 07:24 | NUR ---
Lab called with critical Calcium of 5.6, except for potassium, other labs are improving.
[2020-07-30 07:30] VITALS: BP 100/40
[2020-07-30 11:30] VITALS: BP 120/40
--- NOTE | 2020-07-30 14:05 | NUR ---
C/O nausea, provided emesis bag and cold washcloth to bathe face and neck with.
--- NOTE | 2020-07-30 14:15 | NUR ---
States a little improvement, gave Zofran as ordered at this time, call light/phone/water within reach, no s/s of acute distress observed.
[2020-07-30 15:30] VITALS: BP 126/45
--- NOTE | 2020-07-30 19:49 | NUR ---
INITIAL ROUNDS COMPLETED AT 191 HRS. PT DENIED ANY DISCOMFORT. ASSESSMENT COMPELTED AT 5 HRS. SB PER CM HR 39. PT ALERT AND ORIENTED TO PERSON, PLACE AND TIME. ARANDA. PALPABLE PERIPHERAL PULSES. TRACE PEDAL EDEMA NOTED. LUNGS DIMINISHED IN BASES BILAT. ABD SOFT WITH ACTIVE BS NOTED. O2 3LNC. PT REFUSES SCD'S STATING THEY MAKE HER LEGS HURT. SR UP X2, CALL LIGHT WITHIN REACH.
[2020-07-30 20:30] VITALS: BP 136/45
--- NOTE | 2020-07-30 21:04 | NUR ---
PM FSBS 180. 2 UNITS REG INSULIN GIVEN SUB-Q TO UPPER R ARM, DENIES ANY DIZZINESS OR DISCOMFORT. SR UP X1, CALL LIGHT WITHIN REACH.
--- NOTE | 2020-07-30 22:18 | NUR ---
PT STATED SHE HAS NOT URINATED SINCE 0700 HRS. ASSISTED PT TO BR. DEPENDS WET [facility] URINE. PT VOIDED 200CC OF DARK YELLOW URINE. PT HAD SMALL BM FERNANDEZ IN COLOR. UNABLE TO SEND U/A SPECIMEN CONTAMINATED WITH STOOL. ASISTED BACK TO BED. SR UP X1,CALL LIGHT WITHIN REACH.
--- NOTE | 2020-07-30 22:28 | NUR ---
TYLENOL 650MG PO GIVEN FOR C/O LEG ACHINESS.
--- NOTE | 2020-07-31 00:10 | NUR ---
SB HR 31. PT RESTING WITH EYES CLOSED. RESP EVEN AND REGULAR. RESP 16. SR UP X1, CALL LIGHT WITHIN REACH.
[2020-07-31 00:30] VITALS: BP 105/32
--- NOTE | 2020-07-31 04:16 | NUR ---
SB HR 32. PT RESTING WITH EYES CLOSED. RESP EVEN AND REGULAR. CALL LIGHT WITHIN REACH.
[2020-07-31 04:30] VITALS: BP 144/48
[2020-07-31 05:59] LABS: BASOPHILS 0.2 % (0-2); EOSINOPHILS 0.7 % (0-7); HEMATOCRIT 37.5 % (36.0-48.0); HEMOGLOBIN 11.2 g/dL (12-16); IMMATURE GRANULOCYTES 0.4 % (0-5); LYMPHOCYTE ABS# 2.18 10x3/uL (1.18-3.74); MCH 25.2 pg (26.0-34.0); MCHC 29.9 g/dL (31.0-37.0); MEAN PLATELET VOLUME 11.6 fL (7.4-10.4); MONOCYTES 5.9 % (2-11); NEUTROPHIL ABS# 7.02 10x3/uL (1.56-6.13); NEUTROPHILS 70.8 % (40-80); PLATELET COUNT 211 10x3/uL (130-400); RBC 4.44 10x6/uL (4.00-5.40); RDW 18.3 % (11.5-14.5)
[2020-07-31 06:01] LABS: MCV 84.5 fL (80.0-100.0); WBC 9.9 10x3/uL (4.8-10.8)
[2020-07-31 06:06] LABS: ALBUMIN 2.6 g/dL (3.4-5.0); BILIRUBIN - TOTAL 0.7 mg/dL (0.2-1.3); CREATININE - SERUM 4.1 mg/dL (0.6-1.3); PHOSPHOROUS 7.5 mg/dL (2.5-4.9); PROTEIN - SERUM 5.8 g/dL (6.4-8.2)
[2020-07-31 06:10] LABS: ANION GAP 19.2 mmol/L (8-16)
[2020-07-31 06:12] LABS: CALCIUM 6.1 mg/dL (8.5-10.1)
[2020-07-31 06:13] LABS: POTASSIUM - SERUM 6.2 mmol/L (3.5-5.1)
--- NOTE | 2020-07-31 06:23 | NUR ---
CM CONTINUES TO SHOW SB HR IN THE 30'S. BP STABLE./ PT STATES TYLENOL HELPED ALLEVIATE CHRONIC LEG PAIN. NEEDS MET; WILL CONTINUE TO MONITOR.
--- NOTE | 2020-07-31 06:33 | NUR ---
CM DENITES SB HR 26. PT RESTING WITH EYES CLOSED. RESP EVEN AND REGULAR. PT'S HR UP TO 42 WHEN AWOKEN. DENIED ANY DISCOMFORT.
--- NOTE | 2020-07-31 07:09 | NUR ---
Aarti CARRINGTON APN NOTIFIED OF PT'S K+6.2, ELEVATED BUN AND CR, CA++ AND ALBUMIN. INFORMED PT'S HR IN 30'S AND DR MARTÍNEZ AWARE. INFORMED BP STABLE ONLY 325CC U/O. Lis OSORIO APN STATED SHE WILL BE ON FLOOR SHORTLY TO EVAL.
[2020-07-31 08:43] VITALS: BP 111/42
[2020-07-31 12:02] VITALS: BP 123/47
[2020-07-31 12:36] LABS: BILIRUBIN NEGATIVE (NEGATIVE); KETONE NEGATIVE (NEGATIVE); NITRITE NEGATIVE (NEGATIVE); UROBILINOGEN NORMAL mg/dL (< 2)
[2020-07-31 12:37] LABS: BACTERIA MANY HPF (NONE SEEN); SQUAMOUS EPITHELIAL 0-5 HPF (0-4); WHITE CELLS - URINE 0-5 HPF (0-4)
[2020-07-31 16:05] VITALS: BP 82/60
--- NOTE | 2020-07-31 19:20 | NUR ---
INITIAL ROUNDS COMPLETED. PT DENIES ANY DISCOMFORT BUT STATES SHE FEELS WEAK. REMINDED PT TO CALL FOR ASSISTANCE TO BR. PT STATED UNDERSTANDING. SR UP X1, CALL LIGHT WITHIN REACH.
[2020-07-31 20:00] VITALS: BP 117/39
--- NOTE | 2020-07-31 22:35 | NUR ---
ASSESSMENT COMPLETED AT 2005 HRS. VSS. SB PER CM HR 46. ALERT AND ORIENTED TO PERSON, PLACE AND TIME. ARANDA. PALPABLE PERIPHERAL PULSES. GENERALIZED EDEMA NOTED. IV TO LAC SL. LUNGS DIMINISHED IN BASES BILAT. O2 3LNC. PM FSBS 181. 2 UNITS REG INSULIN GIVEN SUB-Q TO UPPER R ARM. EXPALINED PRE AND POST PROCEDURE PPM PLACEMENT. PT STATED UNDERSTANDING. NECK AND CHESTWIPED WITH HIBICLENS WIPES AT 2030 HRS. ASSITEDTO BR AT 220 HRS. VOIDED MODERATE AMOUNT OF URINE. MISSED HAT. ASSISTED BACK TO BED. PT STTED SHE FELT WEAK. GAIT STEADY. SR UP X2, CALL LIGHT WITHIN REACH.
--- NOTE | 2020-07-31 23:38 | NUR ---
SB PER CM HR 41. PT RESTING WITH EYES CLOSED. RESP EVEN AND REGULAR. SR UP X2, CALL LIGHT WITHIN REACH.
[2020-08-01] VITALS (12 sets, daily range): BP systolic 120–170; BP diastolic 34–77; Ht 160 cm; Wt 103.7 kg
--- NOTE | 2020-08-01 01:16 | NUR ---
CAF PER CM HR 46. PT RESTING WITH EYES CLOSED. RESP EVEN AND REGULAR. SR UP X2,CALL LIGHT WITHIN REACH.
--- NOTE | 2020-08-01 02:01 | NUR ---
PT RESTING WITH EYES CLOSED. RESP EVEN AND REGULAR. SR UP X2, CALL LIGHT WITHIN REACH.
--- NOTE | 2020-08-01 04:06 | NUR ---
ASSISTED TO BR. VOIDED 125CC OF YELLOW URINE. ASSISTED BACK TO BED. VSS. CAF PER CM HR 48. CALL LIGHT WITHIN REACH.
--- NOTE | 2020-08-01 05:32 | NUR ---
BED BATH DONE, BED LINENS CAHNGED. NECK AND CHEST HIBICLENSED PER ORDERS. PT TOLERTATED ACTIVITY WELL.
[2020-08-01 06:28] LABS: BASOPHILS 0.2 % (0-2); EOSINOPHILS 0.4 % (0-7); HEMATOCRIT 34.5 % (36.0-48.0); HEMOGLOBIN 10.7 g/dL (12-16); IMMATURE GRANULOCYTES 0.4 % (0-5); LYMPHOCYTE ABS# 0.79 10x3/uL (1.18-3.74); LYMPHOCYTES 9.6 % (15-50); MCH 25.2 pg (26.0-34.0); MEAN PLATELET VOLUME 11.3 fL (7.4-10.4); MONOCYTES 5.2 % (2-11); NEUTROPHIL ABS# 6.95 10x3/uL (1.56-6.13); NEUTROPHILS 84.2 % (40-80); PLATELET COUNT 214 10x3/uL (130-400); RBC 4.24 10x6/uL (4.00-5.40); RDW 18.1 % (11.5-14.5); WBC 8.3 10x3/uL (4.8-10.8)
[2020-08-01 06:37] LABS: MCV 81.4 fL (80.0-100.0)
--- NOTE | 2020-08-01 06:43 | NUR ---
IV TO LAC INFILTRATED. NEW IV STARTED #20 TO INNER R WRIST WITH ATTEMPT X3. PT TOLERATED ACTIVITY WELL.
[2020-08-01 06:56] LABS: ALBUMIN 2.5 g/dL (3.4-5.0); BILIRUBIN - TOTAL 0.62 mg/dL (0.2-1.3); CARBON DIOXIDE 22.7 mmol/L (21.0-32.0); PHOSPHOROUS 7.8 mg/dL (2.5-4.9); PROTEIN - SERUM 5.8 g/dL (6.4-8.2)
--- NOTE | 2020-08-01 07:00 | NUR ---
RECEIVED REPORT. ASSUMED CARE OF PATIENT. CALL LIGHT WITHIN REACH. PATIENT RESTING WELL IN BED, EASILY AROUSED. PATIENT FOR PACEMAKER PLACEMENT TODAY. [facility] BOARD UPDATED, BEDSIDE SHIFT REPORT COMPLETE. NO DISTRESS.
[2020-08-01 07:13] LABS: ANION GAP 17.4 mmol/L (8-16); POTASSIUM - SERUM 5.1 mmol/L (3.5-5.1)
--- NOTE | 2020-08-01 07:43 | NUR ---
HERE FOR ROUNDS AT BEDSIDE, FOUNDRY SUPERINTENDANT DISCUSSED CRITICAL CALCIUM CALLED FROM LAB.
--- NOTE | 2020-08-01 07:54 | NUR ---
ASSISTED PATIENT OOB TO RESTROOM AND BACK TO BED. NO DISTRESS. MINIMAL STAND BY ASSIST WITH TRANSFER. CALL LIGHT WITHIN REACH.
--- NOTE | 2020-08-01 10:25 | NUR ---
PATIENT REFUSED SCDS, STATES THEY HURT HER LEGS. PATIENT IS EDEMATOUS, RICKIE, HAVING PACEMAKER PLACED TODAY. EDUCATION PROVIDED.
--- NOTE | 2020-08-01 11:10 | NUR ---
FSBS 96. NO INSULIN PER SLIDING SCALE. PATIENT REMAINS NPO AT THIS TIME.
--- NOTE | 2020-08-01 11:52 | NUR ---
REHAB PRESCREEN RECEIVED. PATIENT GOING FOR A PACEMAKER TODAY. PHYSICAL THERAPY EVAL DOCUMENTS THEY ARE WAITING UNTIL AFTER THIS TO WORK WITH PATIENT AND OCCUPATION THERAPY EVAL IS PENDING. I WILL LOOK AT HER CLOSER ONCE WE HAVE THESE EVALUATIONS COMPLETED. SHE HAS NOVASYS AND WILL HAVE TO HAVE A PREAUTH COMPLETED FOR DETERMINATION. I HAVE DISCUSSED THIS PATIENT WITH EKTA LECHUGA RN CM. THANK YOU FOR THIS REFERRAL. SISSY RINALDI RN CLINICAL LIAISON, INPATIENT REHAB.
--- NOTE | 2020-08-01 12:28 | NUR ---
PREOP MEDS ADMINISTERED, AWAITING TRANSFER FOR PACEMAKER PLACEMENT AT THIS TIME.
--- NOTE | 2020-08-01 14:56 | NUR ---
PATIENT LEFT UNIT VIA BED AT THIS TIME FOR PACEMAKE INSERTION. PATIENT IN NO ACUTE DISTRESS UPON LEAVING UNIT.
--- NOTE | 2020-08-01 17:30 | NUR ---
PT ARRIVED VIA BED, RR EVEN AND UNLABORED ON 15L NONREBREATHER. 100% SATS. WEANED TO 10L HF NC. VSS, SEE FLOWSHEET FOR DETAILS. 22G TO RIGHT WRIST, SL. DRESSING NOTED TO LEFT AND RIGHT UPPER CHEST, CDI. DR. PICKENS STATES ATTEMPT TO LEFT BUT PLACED IN RIGHT CHEST. ATRIAL PACING AT 70. PT CALM. AWAKE, ALERT AND ORIENTED X4. DENIES NEEDS OR PAIN AT THIS TIME.
[2020-08-01 18:08] LABS: SPE - A/G RATIO 1.3 (0.7-1.7); SPE - ALBUMIN 2.8 g/dL (2.9-4.4); SPE - ALPHA-1 GLOBULIN 0.2 g/dL (0.0-0.4); SPE - ALPHA-2 GLOBULIN 0.9 g/dL (0.4-1.0); SPE - BETA GLOBULIN 0.7 g/dL (0.7-1.3); SPE - GAMMA GLOBULIN 0.4 g/dL (0.4-1.8); SPE - M-SPIKE Not Observed g/dL (Not Observed); SPE - TOTAL PROTEIN 4.9 g/dL (6.0-8.5)
[2020-08-02] VITALS (11 sets, daily range): BP systolic 131–167; BP diastolic 42–73
[2020-08-02 04:33] LABS: BASOPHILS 0.3 % (0-2); EOSINOPHILS 0.4 % (0-7); HEMATOCRIT 35.2 % (36.0-48.0); IMMATURE GRANULOCYTES 0.7 % (0-5); LYMPHOCYTE ABS# 0.76 10x3/uL (1.18-3.74); LYMPHOCYTES 10.5 % (15-50); MCH 25.6 pg (26.0-34.0); MCHC 31.3 g/dL (31.0-37.0); MCV 82.1 fL (80.0-100.0); MEAN PLATELET VOLUME 11.2 fL (7.4-10.4); MONOCYTES 7.6 % (2-11); NEUTROPHIL ABS# 5.86 10x3/uL (1.56-6.13); NEUTROPHILS 80.5 % (40-80); PLATELET COUNT 221 10x3/uL (130-400); RBC 4.29 10x6/uL (4.00-5.40); RDW 17.9 % (11.5-14.5); WBC 7.3 10x3/uL (4.8-10.8)
[2020-08-02 04:53] LABS: ALBUMIN 2.3 g/dL (3.4-5.0); BILIRUBIN - TOTAL 0.46 mg/dL (0.2-1.3); CARBON DIOXIDE 25.5 mmol/L (21.0-32.0); PHOSPHOROUS 6.1 mg/dL (2.5-4.9); PROTEIN - SERUM 5.7 g/dL (6.4-8.2)
[2020-08-02 05:12] LABS: ANION GAP 14.6 mmol/L (8-16); CREATININE - SERUM 2.5 mg/dL (0.6-1.3); POTASSIUM - SERUM 4.1 mmol/L (3.5-5.1)
[2020-08-02 05:16] LABS: CALCIUM 6.3 mg/dL (8.5-10.1)
--- NOTE | 2020-08-02 09:33 | NUR ---
ASSISTED OOB THIS AM. SLING ADJUSTED TO RT ARM. BREAKFAST TRAY SERVED AND PT DID EAT WITH OUT DIFFICULTY.
--- NOTE | 2020-08-02 11:49 | NUR ---
NUNU PAYTON. REPORTED TO DANDRE ON ROUNDS. REPORTED TO DR YOUNG WELL. US WAS ORDERED AND COMPLETED. IV TO RT HAND INFILTRATED. ATTEMPTED TO RESITE WITH OUT SUCCESS. REPORTED TO OSKAR. WILL REPORT TO ADMITTING PHYSICIAN DIRECTED.
--- NOTE | 2020-08-02 15:57 | OP ---
PATIENT NAME: ROSE OLSON MEDICAL RECORD: [id number] :36 [facility]CV[facility] ADMISSION DATE:07/29/20 SURGEON: VICTOR M SCHULZ MD DATE OF OPERATION: 08/01/2020 SURGEON: Victor M Schulz MD. PROCEDURE PERFORMED: Insertion of dual chamber permanent pacemaker via right subclavian vein. PREOPERATIVE DIAGNOSIS: Atrial fibrillation with bradycardia and syncope. POSTOPERATIVE DIAGNOSIS: Atrial fibrillation with bradycardia and syncope. ANESTHESIA: General. BLOOD LOSS: 25 mL. COMPLICATIONS: None. CONDITION: Stable. DISPOSITION: ICU. OPERATIVE FINDINGS: 1. Pacemaker pocket created on the left and the left subclavian vein cannulated at least 4 times, but the guidewire would not cross the midline. CT scan shows a left innominate vein; however, further attempts resulted in cannulation of the artery and it was abandoned. 2. Easy pass of the guidewire and good placement of the atrial and ventricular leads with good pacing and sensing thresholds from the right side. No apparent complications. INDICATIONS: Bradycardia with atrial fibrillation and syncope. PROCEDURE IN DETAIL: The patient was brought to the operating suite. General anesthesia was obtained. The patient was prepped and draped. On the left side, a subcutaneous pocket was created below the clavicle. The left subclavian vein could not easily be cannulated. The arterial stick was performed at least twice once passing a guidewire that looked like it went to the aortic valve or ventricle with ectopy. Eventually, a vein with good return was obtained, but the guidewire would not pass the midline. Attempt at a venogram was unsuccessful. The vein was recannulated slightly more laterally. Again it would not cross the midline and the left side was abandoned. Later, this was irrigated with antibiotic solution and closed in 3 layers. On the right side, the subclavian vein was easily cannulated with the first stick percutaneously. Then, the subcutaneous pocket was created. Another stick site was made and the guidewires were passed. Peel-away sheaths were placed. Leads were placed. Then, the screw and lead were placed in the ventricular cavity, screw and lead in atrial cavity. Good pacing and sensing thresholds were noted. No diaphragmatic stimulation. Lead was sutured in place. Pacemaker generator connected, placed in the pocket. Thorough irrigation was undertaken and hemostasis was ensured. The wound was closed with 3 layers, Dermabond on the skin. The patient returned to ICU stable. OPERATIVE REPORT [id number] ROSE OLSON TRANSINT:[id number] Voice Confirmation ID: [id number] DOCUMENT ID: [id number] VICTOR M SCHULZ MD at 1557 CC: KISHAN MARTÍNEZ M.D. and ABEBA TONEY DO [id number] DICTATION DATE: 08/01/20 175 CDA TEACHER: 08/01/20 2350 ADM IN [place] [id number] [place] [id number]
--- NOTE | 2020-08-02 17:17 | NUR ---
CVL PLACED BY BRIAN SUAREZ. CXR AND ORDER TO USE COMPLETE. CONCENT TO CHART.
--- NOTE | 2020-08-02 18:32 | NUR ---
PT ARIVED FROM ICU WITH ICU NURSE. BREATHING EASILY. NO DISTRESS NOTED. HELPED TO BATHROOM WITH SBA. SITUATED IN BED. TELEMETRY PLACED. INTERACTED WITH NURSES APPROPRIATELY.
[2020-08-03] VITALS (7 sets, daily range): BP systolic 116–146; BP diastolic 40–64
[2020-08-03 06:15] LABS: BASOPHILS 0.1 % (0-2); EOSINOPHILS 2.2 % (0-7); HEMATOCRIT 33.9 % (36.0-48.0); HEMOGLOBIN 10.5 g/dL (12-16); IMMATURE GRANULOCYTES 0.5 % (0-5); LYMPHOCYTE ABS# 1.14 10x3/uL (1.18-3.74); LYMPHOCYTES 15.6 % (15-50); MCH 25.4 pg (26.0-34.0); MCV 81.9 fL (80.0-100.0); MEAN PLATELET VOLUME 10.5 fL (7.4-10.4); MONOCYTES 8.9 % (2-11); NEUTROPHILS 72.7 % (40-80); PLATELET COUNT 185 10x3/uL (130-400); RBC 4.14 10x6/uL (4.00-5.40); RDW 17.6 % (11.5-14.5); WBC 7.3 10x3/uL (4.8-10.8)
[2020-08-03 06:35] LABS: ALBUMIN 2.2 g/dL (3.4-5.0); ANION GAP 11.5 mmol/L (8-16); BILIRUBIN - TOTAL 0.38 mg/dL (0.2-1.3); CALCIUM 7.2 mg/dL (8.5-10.1); CARBON DIOXIDE 28.1 mmol/L (21.0-32.0); POTASSIUM - SERUM 3.6 mmol/L (3.5-5.1); PROTEIN - SERUM 5.3 g/dL (6.4-8.2)
[2020-08-03 06:36] LABS: CREATININE - SERUM 1.6 mg/dL (0.6-1.3); PHOSPHOROUS 4.5 mg/dL (2.5-4.9)
--- NOTE | 2020-08-03 08:13 | NUR ---
AM MEDS GIVEN. PT ASSISTAED TO BATHROOM AND INTO CHAIR. BREAKFAST TRAY GIVEN. RR EVEN NON LABORED WITH O2 INPLACE VIA NC. NO FURTHER NEEDS VOICED. CLWR.
--- NOTE | 2020-08-03 10:15 | NUR ---
PT ASSISTED TO THE BATHROOM AND BACK INTO BED , IV ANTIBIOTIC INITIATED. NO FURTHER NEEDS VOICED. CLWR.
[2020-08-04 05:09] VITALS: BP 118/45
[2020-08-04 05:50] LABS: BASOPHILS 0.2 % (0-2); EOSINOPHILS 3.2 % (0-7); HEMATOCRIT 34.1 % (36.0-48.0); HEMOGLOBIN 10.7 g/dL (12-16); IMMATURE GRANULOCYTES 0.5 % (0-5); LYMPHOCYTE ABS# 1.25 10x3/uL (1.18-3.74); LYMPHOCYTES 19.2 % (15-50); MCH 25.6 pg (26.0-34.0); MCHC 31.4 g/dL (31.0-37.0); MCV 81.6 fL (80.0-100.0); MEAN PLATELET VOLUME 10.8 fL (7.4-10.4); MONOCYTES 6.9 % (2-11); NEUTROPHIL ABS# 4.57 10x3/uL (1.56-6.13); PLATELET COUNT 204 10x3/uL (130-400); RBC 4.18 10x6/uL (4.00-5.40); RDW 17.4 % (11.5-14.5); WBC 6.5 10x3/uL (4.8-10.8)
[2020-08-04 06:13] LABS: ALBUMIN 2.3 g/dL (3.4-5.0); BILIRUBIN - TOTAL 0.41 mg/dL (0.2-1.3); CARBON DIOXIDE 28.7 mmol/L (21.0-32.0); CREATININE - SERUM 1.3 mg/dL (0.6-1.3); PROTEIN - SERUM 5.1 g/dL (6.4-8.2)
[2020-08-04 06:36] LABS: ANION GAP 12.5 mmol/L (8-16); POTASSIUM - SERUM 4.2 mmol/L (3.5-5.1)
[2020-08-04 06:37] LABS: CALCIUM 6.7 mg/dL (8.5-10.1)
[2020-08-04 08:00] VITALS: BP 125/52
[2020-08-04 11:07] VITALS: BP 105/60
--- NOTE | 2020-08-04 12:24 | NUR ---
Nutrition Reassessment/Follow-up: POD 3 PPM placement. Eating well; ate majority of breakfast this AM. Diet: Renal ADA Wt: 214.9# (08/02)Adj BW: 140# Labs noted: K+ 4.2, BUN 30, GFR 42, Glu 108, Ca 6.7, PO4 4.0, Alb 2.3 Meds noted: Lasix, KDur, vit D, Tums, Florajen, Protonix, Humulin, electrolyte protocol Est needs: 3593-6236 kcal/day (25-30 kcal/kg adj BW) 60-80 g protein/day (0.6-0.8 g/kg) 6090-5974 mL fluid/day (1 mL/kcal) or per MD -RD will follow up within 7 days if pt still admitted.
[2020-08-04 16:04] VITALS: BP 112/58
[2020-08-04 20:00] VITALS: BP 117/40
--- NOTE | 2020-08-04 23:56 | NUR ---
REPORT RECEIVED. PT A&O, UP IN BEDSIDE CHAIR READING BOOK. NO S/S OF DISTRESS OBSERVED. RR EVEN & UNLABORED ON 3L. BED LOCKED AND LOWERED CL IN REACH. ASSESSMENT COMPLETE. WILL CONT POC.
[2020-08-05] VITALS: BP 116/45
[2020-08-05 04:00] VITALS: BP 112/41
[2020-08-05 06:06] LABS: BASOPHILS 0.2 % (0-2); EOSINOPHILS 3.9 % (0-7); HEMATOCRIT 35.4 % (36.0-48.0); HEMOGLOBIN 11.1 g/dL (12-16); IMMATURE GRANULOCYTES 0.3 % (0-5); LYMPHOCYTE ABS# 1.44 10x3/uL (1.18-3.74); LYMPHOCYTES 23.7 % (15-50); MCH 25.6 pg (26.0-34.0); MCHC 31.4 g/dL (31.0-37.0); MCV 81.8 fL (80.0-100.0); MEAN PLATELET VOLUME 10.8 fL (7.4-10.4); MONOCYTES 9.5 % (2-11); NEUTROPHIL ABS# 3.79 10x3/uL (1.56-6.13); NEUTROPHILS 62.4 % (40-80); PLATELET COUNT 225 10x3/uL (130-400); RBC 4.33 10x6/uL (4.00-5.40); RDW 17.3 % (11.5-14.5); WBC 6.1 10x3/uL (4.8-10.8)
[2020-08-05 06:26] LABS: ALBUMIN 2.4 g/dL (3.4-5.0); ANION GAP 15.2 mmol/L (8-16); BILIRUBIN - TOTAL 0.42 mg/dL (0.2-1.3); CALCIUM 7.1 mg/dL (8.5-10.1); CREATININE - SERUM 1.3 mg/dL (0.6-1.3); PHOSPHOROUS 3.7 mg/dL (2.5-4.9); POTASSIUM - SERUM 4.2 mmol/L (3.5-5.1); PROTEIN - SERUM 5.9 g/dL (6.4-8.2)
[2020-08-05 09:08] VITALS: BP 147/59
--- NOTE | 2020-08-05 12:28 | NUR ---
SENDING PATIENTS INFORMATION OFF TO [facility] FOR AUTHORIZATION FOR INPATIENT REHAB. I WILL LET CASE MANAGEMENT KNOW THE DETERMINATION WHEN WE RECEIVE IT. UNFORTUNATELY, I DO NOT FEEL THAT WE WILL HEAR ANYTHING UNTIL SATURDAY IN REGARDS TO THEIR DETERMINATION. SISSY RINALDI RN CLINICAL LIAISON, INPATIENT REHAB.
--- NOTE | 2020-08-05 13:45 | NUR ---
PATIENT HAS BEEN APPROVED FOR INPATIENT REHAB WITH AUTH# [id number]. WE WILL BE ABLE TO TAKE HER ON SATURDAY. I HAVE RELAYED THIS INFORMATION TO MARILUZ HERNDON RN CM. WE WILL LOOK FOWARD TO HAVING HER ON SATURDAY.
--- NOTE | 2020-08-05 14:07 | NUR ---
OT NOTE: BED MOB WITH MIN ASSIST; AMB WITH WALKER AND MIN ASSIST TO BATHROOM; CGA FOR BALANCE DURING TOILET HYGIENE. ASSIST WITH DONNING SOCKS. CONT TO RECOMMEND REHAB FOR STRENGTHENING AND ADL INDEP. RICHA ESCALERA, OTR/L [id number]
[2020-08-05 14:50] VITALS: BP 129/63
--- NOTE | 2020-08-05 16:23 | NUR ---
0700 RESTING QUIETLY WITH EYES CLOSED AWAKENS TO VOICE AAO X 4 ASSESSMENT COMPLETE RIGHT ELBOW SKIN TEAR WITH DRESSING INTACT REDDNESS NOTED TO BRIANNE LOWER LEGS PT STATED SHE HAD THIS FOR OVER A YEAR
--- NOTE | 2020-08-05 16:28 | NUR ---
1500 OFFERED PAIN MED PATIENT REFUSED STATED THAT THE TORADOL IV HAS HELPED HER PAIN BETTER THAN NORCO
[2020-08-05 18:00] VITALS: BP 133/54
--- NOTE | 2020-08-05 19:15 | NUR ---
RECEIVED REPORT, WILL ASSUME CARE OF PT, ASKING FOR PAIN MEDS, WILL PROVIDE ORDERED, DENIES ANY OTHER NEEDS AT THIS TIME, SITTING UP ON SIDE OF BED, CALL LIGHT IN REACH, WILL CONTINUE PLAN OF CARE
[2020-08-05 21:36] VITALS: BP 132/55
[2020-08-06 01:05] VITALS: BP 144/67
[2020-08-06 05:48] VITALS: BP 137/55
--- NOTE | 2020-08-06 07:42 | NUR ---
INITIAL ROUNDS PT UP TO CHAIR, A/O X4, RESP EVEN AND NONLABORED ON 3L. LT IJ CVL WITH CDI DRESSING SWAB CAPS IN PLACE. BILAT CHEST DRESSINGS NOTED. PACEMAKER ON THE RIGHT. PACED 71 ON TELE. PT DENIES ANY NEEDS AT THIS TIME. CALL LIGHT IN REACH, NAD NOTED,W ILL CONTINUE PLAN OF CARE.
[2020-08-06 07:52] LABS: BASOPHILS 0.3 % (0-2); EOSINOPHILS 4.5 % (0-7); HEMATOCRIT 35.6 % (36.0-48.0); IMMATURE GRANULOCYTES 0.5 % (0-5); LYMPHOCYTE ABS# 1.88 10x3/uL (1.18-3.74); LYMPHOCYTES 30.4 % (15-50); MCH 25.4 pg (26.0-34.0); MCHC 30.9 g/dL (31.0-37.0); MCV 82.2 fL (80.0-100.0); MEAN PLATELET VOLUME 10.4 fL (7.4-10.4); MONOCYTES 6.8 % (2-11); NEUTROPHIL ABS# 3.55 10x3/uL (1.56-6.13); NEUTROPHILS 57.5 % (40-80); PLATELET COUNT 230 10x3/uL (130-400); RBC 4.33 10x6/uL (4.00-5.40); RDW 17.2 % (11.5-14.5); WBC 6.2 10x3/uL (4.8-10.8)
[2020-08-06 08:01] LABS: ALBUMIN 2.5 g/dL (3.4-5.0); ANION GAP 11.2 mmol/L (8-16); BILIRUBIN - TOTAL 0.49 mg/dL (0.2-1.3); CALCIUM 7.1 mg/dL (8.5-10.1); CARBON DIOXIDE 31.3 mmol/L (21.0-32.0); CREATININE - SERUM 1.3 mg/dL (0.6-1.3); PHOSPHOROUS 4.1 mg/dL (2.5-4.9); POTASSIUM - SERUM 4.5 mmol/L (3.5-5.1); PROTEIN - SERUM 5.8 g/dL (6.4-8.2)
[2020-08-06 08:14] VITALS: BP 139/55
--- NOTE | 2020-08-06 11:08 | NUR ---
BLOOD SUGAR OF 156, PT REFUSED TO GET 2UNITS OF INSULIN. ALSO GAVE NORCO FOR PAIN LEVEL O F7/10. ALL NEEDS MET, CALL LIGHT IN REACH.
[2020-08-06 12:24] VITALS: BP 144/55
--- NOTE | 2020-08-06 16:28 | NUR ---
NORCO GIVEN FOR PAIN LEVEL OF 8/10. PT DENIES ANY OTHER NEEDS, CALL LIGHT IN REACH.
[2020-08-06 17:26] VITALS: BP 170/77
--- NOTE | 2020-08-06 19:06 | NUR ---
RECEIVED REPORT, WILL ASSUME CARE OF PT, DENIES ANY NEEDS AT THIS TIME, BED IS LOW,SRX2, CALL LIGHT IN REACH, WILL CONTINUE PLAN OF CARE
[2020-08-06 21:49] VITALS: BP 143/77
[2020-08-07 02:15] VITALS: BP 153/55
[2020-08-07 06:08] VITALS: BP 145/65
[2020-08-07 06:22] LABS: BASOPHILS 0.3 % (0-2); EOSINOPHILS 4.3 % (0-7); HEMATOCRIT 35.4 % (36.0-48.0); HEMOGLOBIN 10.9 g/dL (12-16); IMMATURE GRANULOCYTES 0.7 % (0-5); LYMPHOCYTE ABS# 1.53 10x3/uL (1.18-3.74); LYMPHOCYTES 22.6 % (15-50); MCH 25.5 pg (26.0-34.0); MCHC 30.8 g/dL (31.0-37.0); MCV 82.7 fL (80.0-100.0); MEAN PLATELET VOLUME 10.4 fL (7.4-10.4); MONOCYTES 8.4 % (2-11); NEUTROPHIL ABS# 4.31 10x3/uL (1.56-6.13); NEUTROPHILS 63.7 % (40-80); PLATELET COUNT 258 10x3/uL (130-400); RBC 4.28 10x6/uL (4.00-5.40); RDW 17.4 % (11.5-14.5); WBC 6.8 10x3/uL (4.8-10.8)
[2020-08-07 06:54] LABS: ALBUMIN 2.7 g/dL (3.4-5.0); ANION GAP 12.3 mmol/L (8-16); BILIRUBIN - TOTAL 0.43 mg/dL (0.2-1.3); CALCIUM 7.3 mg/dL (8.5-10.1); CARBON DIOXIDE 32.6 mmol/L (21.0-32.0); CREATININE - SERUM 1.3 mg/dL (0.6-1.3); PHOSPHOROUS 4.2 mg/dL (2.5-4.9); POTASSIUM - SERUM 4.9 mmol/L (3.5-5.1); PROTEIN - SERUM 5.5 g/dL (6.4-8.2)
--- NOTE | 2020-08-07 07:42 | NUR ---
AM ROUNDS- PT RESTING COMFORTABLY IN BED, RESP EVEN AND NONLABORED ON 3HF. LT IJ WITH DRESSING CDI. PACED-70 ON TELE. PT ASKING WHY NOBODY TOLD HER THAT SHE WAS GOING TO REHAB. INFORMED PT THAT I WOULD FIND OUT IF SHE WAS GOING TO GO TO REHAB TODAY AND LET HER KNOW SO SHE CAN NOTIFY HER FAMILY. PT DENIES ANY NEEDS AT THIS TIME. CALL LIGHT IN REACH, WILL CONTINUE PLAN OF CARE.
[2020-08-07] MEDS ORDERED: ELIQUIS2.5 MG PO (08:10)
[2020-08-07] MEDS ORDERED: ACETAMINOPHEN325 MG PO ×2 (08:10)
[2020-08-07] MEDS ORDERED: HYDROCODON-ACE1 EA10 PO (08:10)
[2020-08-07] MEDS ORDERED: TUMS PO (08:11)
[2020-08-07] MEDS ORDERED: FLORAJEN DIGES1 EACH PO (08:11)
[2020-08-07] MEDS ORDERED: LOKELMA10 GM PO (08:11)
[2020-08-07] MEDS ORDERED: PROTONIX40 MG PO (08:11)
[2020-08-07] MEDS ORDERED: HUMULIN R100 UNIT/1 SC (08:12)
[2020-08-07] MEDS ORDERED: VITAMIN D325 MC1 PO (08:12)
[2020-08-07] MEDS ORDERED: LEVOTHYROXINE100 MCG PO (08:12)
[2020-08-07] MEDS ORDERED: OMNICEF300 MG PO (08:12)
[2020-08-07] MEDS ORDERED: MIRALAX17 GM PO (08:12)
--- NOTE | 2020-08-07 08:25 | NUR ---
REPORT CALLED TO TENISHA RADFORD IN REHAB. PER TENISHA TAKE LT IJ OUT.
--- NOTE | 2020-08-07 09:25 | NUR ---
RT IJ REMOVED WITH CATHETER TIP INTACT BY MALAIKA SHEEHAN RN. PT TOLERATED WELL.
--- NOTE | 2020-08-07 09:44 | NUR ---
PT TAKEN DOWN TO REHAB BY HYDRO MECHANIC WITH ALL BELONGINGS, NAD NOTED.
[2020-08-08 18:08] LABS: AEROBE ID Final report (())
== END 2020-08-07 09:44 | DRG 242 ==
LOC: D.ER 11:10 → D.M2 12:06 → D.CVICU 12:06 → D.M2 08-02 17:52
PROVIDERS: Emergency Medicine; Family Medicine; Internal Medicine Nephrology; Thoracic Surgery (Cardiothoracic Vascular Surgery); ADMIT Family Medicine; ATTEND Family Medicine
PROC: 02HK3JZ Insertion of Pacemaker Lead into Right Ventricle, Percutaneous Approach (ICD-10-PCS; 2020-08-01)
PROC: 02H63JZ Insertion of Pacemaker Lead into Right Atrium, Percutaneous Approach (ICD-10-PCS; 2020-08-01)
PROC: 0JH606Z Insertion of Pacemaker, Dual Chamber into Chest Subcutaneous Tissue and Fascia, Open Approach (ICD-10-PCS; principal; 2020-08-01 13:00)
PROC: 05HN33Z Insertion of Infusion Device into Left Internal Jugular Vein, Percutaneous Approach (ICD-10-PCS; 2020-08-02)
DX: R00.1 Bradycardia, unspecified (principal); N17.0 Acute kidney failure with tubular necrosis; N39.0 Urinary tract infection, site not specified; E78.5 Hyperlipidemia, unspecified; I48.91 Unspecified atrial fibrillation; I25.10 Atherosclerotic heart disease of native coronary artery without angina pectoris; E03.9 Hypothyroidism, unspecified; I12.9 Hypertensive chronic kidney disease with stage 1 through stage 4 chronic kidney disease, or unspecified chronic kidney disease; E11.22 Type 2 diabetes mellitus with diabetic chronic kidney disease; N18.30 Chronic kidney disease, stage 3 unspecified; Z79.84 Long term (current) use of oral hypoglycemic drugs; Z99.81 Dependence on supplemental oxygen; Z91.81 History of falling; R09.89 Other specified symptoms and signs involving the circulatory and respiratory systems; E87.5 Hyperkalemia; J43.9 Emphysema, unspecified; E83.51 Hypocalcemia; M62.50 Muscle wasting and atrophy, not elsewhere classified, unspecified site; R60.0 Localized edema

== ENCOUNTER 2020-08-07 09:55 | Inpatient (IN) | payer MEDICARE ==
[~2020-08-07] VITALS: Ht 160 cm; Wt 98.0 kg
--- NOTE | ~2020-08-07 | RHP ---
PATIENT: ROSE OLSON MEDICAL RECORD: [id number] ACCOUNT: [id number] LOCATION:[facility] : 38 ADMISSION DATE: 08/07/20 REHABILITATION HISTORY AND PHYSICAL EXAMINATION POST ADMISSION PHYSICIAN EXAMINATION POST ADMISSION PHYSICAL EXAMINATION AND HISTORY AND PHYSICAL ADMITTING DIAGNOSES: Atrial fibrillation with bradycardia and syncope and collapse. HISTORY OF PRESENT ILLNESS: The patient admitted to the rehab with a diagnosis of atrial fib with bradycardia. She is status post pacemaker placement with syncope and collapse. She is an 79-year-old female who presented to the ED on 07/29/2020 with possible stroke-like symptoms. She apparently woke up that morning, had a heavy head, felt dizzy, felt like she was going to pass out. She apparently slid down while scraping her right elbow on a chair. The patient denied any focal weakness, numbness or tingling. Her stroke scale was negative. The patient was taken to CT upon arrival that showed no acute changes. Cardiology was consulted during the stay at the time. Of consult, she felt like her syncopal episode may have been secondary to some orthostatic hypertension. She did not have any chest pain that indicated it was ischemic. She did have carotid bruits on exam with a history of coronary artery disease, a carotid duplex was ordered. It showed no evidence of blockage at that time. The patient had medications adjusted secondary to an elevated TSH. She did have a low calcium and received some IV calcium. The patient was placed on electrolyte protocol throughout her stay. Her telemetry showed that she did have bradycardia all the way down to the 30s. She did have good pressure at that time, but she was not standing. She developed worsening perfusion secondary to her bradycardia. Cardiology was consulted again with cardiothoracic surgery for a pacemaker placement. On 08/01/2020, she had a dual-chamber pacemaker placed via a right subclavian vein secondary to being unable to cannulate the left subclavian vein secondary to the high oxygen demands. Postprocedure, she was transferred to the ICU. She was given Kayexalate for an elevated potassium, so she had acute kidney injury. Since the time of her pacemaker, she has actually been doing somewhat better. She has been placed on Cordarone as a maintenance dose. On 08/04/2020, she was cleared by all of the consultants to begin in therapy. She was noted to be able to ambulate 100 feet with min assist, min assist sit to stand and bed to chair. She has got poor balance. She is willing to participate in therapy. She will definitely require inpatient therapy to get back to her prior level of functioning and be able to return home. She also needs to be watched for any change in cognition, medication adjustments, monitoring pain control. She has got decreased strength, balance deficit, decreased range of motion, gait disturbance, impaired mobility and self-care deficits. These are all barriers to her discharge home. She will require all these therapies to return home. COMORBIDITIES: In this patient include atrial fib, acute kidney injury, arrhythmia, asthma, bradycardia, coronary artery disease, COPD, hyperlipidemia, hypertension, hyperglycemia, hypoalbuminemia, hypoxia, obesity, pacemaker placement, shortness of breath. PAST MEDICAL HISTORY: Significant for COPD, hypertension, hyperlipidemia, diabetes, coronary artery disease, hypothyroidism, bradycardia, diarrhea. She has got a history of breast, ovarian, skin, and thyroid cancer. HISTORY AND PHYSICAL [id number] ROSE OLSON PAST SURGICAL HISTORY: Includes cholecystectomy, hernia repair, appendectomy, tonsillectomy and adenoidectomy, hysterectomy, lumpectomy, and stent and angioplasty. ALLERGIES: No known drug allergies. CURRENT MEDICATIONS: Include Januvia 100 mg daily. She is on furosemide 40 mg daily. She is on ferrous sulfate 325 daily, Protonix 40 mg daily, vitamin D 2000 units daily, Synthroid 100 mcg daily, Omnicef 300 mg b.i.d., chewable calcium 500 mg b.i.d., Eliquis 2.5 mg b.i.d., amiodarone 200 mg b.i.d., budesonide 0.25 mg b.i.d., Glucotrol 10 mg b.i.d. q.a.c. She is on Atrovent 0.5 mg q.6 hours. She is on a low resistance sliding scale insulin, which I am going to discontinue secondary to some low blood sugars, loperamide 2 mg q.i.d. p.r.n. diarrhea, MiraLax 17 grams in 8 ounces of water daily, [place] 10/325 one tab q.4 hours p.r.n. and Tylenol 650 q.6 hours p.r.n. HABITS: No alcohol or tobacco use. FAMILY HISTORY: Noncontributory. SOCIAL HISTORY: The patient hopes to return back home and get back to her prior level of functioning. REVIEW OF SYSTEMS: GENERAL: Does complain of weakness and fatigue. HEENT: Denies cold, cough or congestion. CARDIOVASCULAR: Denies any chest pain. PHYSICAL EXAMINATION: VITAL SIGNS: Stable, afebrile. GENERAL: An obese female, in no acute distress upon exam. HEENT: Normocephalic and atraumatic. Mucosa moist. NECK: Supple. No adenopathy. LUNGS: Clear in the upper quinn. No wheezing or rales. HEART: Irregular rate and rhythm. ABDOMEN: Soft, benign, nondistended. Positive bowel sounds times 4. EXTREMITIES: No clubbing, cyanosis or edema. NEUROLOGIC: She does have some diffuse weakness. LABORATORY DATA: Pending at this time. ASSESSMENT: An 79-year-old female patient admitted that she had a working diagnosis of atrial fib with bradycardia, syncope and collapse, status post pacemaker placement. The patient has potential to make improvement. We instituted the following multidisciplinary therapies including, not limited to physical, occupational, respiratory, speech, nutritional services, prosthetics and orthotics. Given her complex medical condition and risk of further medical complications, rehabilitation services cannot be provided at a low level of care such as detention facility. PLAN: 1. Admit to [facility] for inpatient therapy to include the following disciplines; A. Physical therapy to improve gait, all transfer skills and bed mobility to HISTORY AND PHYSICAL [id number] ROSE OLSON independent level. B. Occupational therapy to improve activities of daily living. C. Case management to help with discharge planning and placement options. D. Nutrition to assist with nutritional needs. E. Rehabilitation nursing to assist in monitoring the patient's underlying medical conditions and to assist with any type of bowel or bladder management. 2. The patient's current medications will be adjusted. I am going to change her blood sugar medicines as appropriate secondary to low blood sugars. We will go ahead and watch her closely for any signs of problems. We will continue on her Eliquis for DVT and atrial fibrillation prophylaxis and I will see her again in the a.m. TRANSINT:[id number] Voice Confirmation ID: [id number] DOCUMENT ID: [id number] 08/19/2020 holly COLLIER notes whether there has been none or any medical/functional change since admission: - No change since preadmission screen. AMIRA attests patient continues to be appropriate for IRF: - Continues to be appropriate. KHUSHBOO BENSON MD CC: [id number] DICTATION DATE: 08/08/20841 CUSTOMER OPERATIONS INTERN: 08/08/20942 DIS IN 08/18/20 [facility] [address] [id number]
[2020-08-07 08:00] VITALS: BP 157/63
[~2020-08-07 09:55] MED LIST changes: +ACETAMINOPHEN325 MG PO; +ELIQUIS2.5 MG PO; +FLORAJEN DIGES1 EACH PO; +HUMULIN R100 UNIT/1 SC; +HYDROCODON-ACE1 EA10 PO; +LEVOTHYROXINE100 MCG PO; +LOKELMA10 GM PO; +MIRALAX17 GM PO; +VITAMIN D325 MC1 PO
--- NOTE | 2020-08-07 10:00 | NUR ---
RECIEVED TO ROOM 1111B,ORIENTED TO ROOM AND SURROUNDINGS.CL IN REACH.
--- NOTE | 2020-08-07 11:04 | NUR ---
CALLED MED 2 TO VERIFY DISCHARGE MEDICATION PROFILE. WAS REPORTED TO NOT START THE PLAVIX PER DR SEBASTIAN AND THE CEFDINIR WAS FOR A UTI
[2020-08-07 13:52] VITALS: BP 157/63; BMI 38.3
[2020-08-07 19:00] VITALS: BP 141/61
--- NOTE | 2020-08-07 20:00 | NUR ---
PATIENT RECEIVED SITTING UP IN BED. ASSESSMENT & VITAL SIGNS DONE. NO C/ PAIN OR DISTRESS. BED LOW. ALARM ON. WILL CONTINUE TO MONITOR.
--- NOTE | 2020-08-08 04:10 | NUR ---
PATIENT STANDBY ASSIST OUT OF BED & INTO BATHROOM. VOID ONLY. PATIENT STANDBY ASSIST INTO LOW BED. ALARM ON. BEDSIDE TABLE & CALL LIGHT WITHINR EACH. WILL CONTINUE TO MONITOR.
--- NOTE | 2020-08-08 05:47 | NUR ---
PATIENT FSBS 62. PATIENT DRANK JUICE. NO S/S OF HYPOGLYCEMIA. WILL CONTINUE TO MONITOR. LEFT DR. BENSON NOTE ABOUT FSBS.
[2020-08-08 08:30] VITALS: BP 131/55
[2020-08-08 09:25] LABS: BASOPHILS 0.3 % (0-2); HEMATOCRIT 35.9 % (36.0-48.0); HEMOGLOBIN 11.1 g/dL (12-16); IMMATURE GRANULOCYTES 0.6 % (0-5); LYMPHOCYTES 24.6 % (15-50); MCH 25.6 pg (26.0-34.0); MCHC 30.9 g/dL (31.0-37.0); MCV 82.9 fL (80.0-100.0); MEAN PLATELET VOLUME 10.4 fL (7.4-10.4); MONOCYTES 7.8 % (2-11); NEUTROPHIL ABS# 4.93 10x3/uL (1.56-6.13); NEUTROPHILS 63.7 % (40-80); PLATELET COUNT 262 10x3/uL (130-400); RBC 4.33 10x6/uL (4.00-5.40); RDW 17.3 % (11.5-14.5); WBC 7.7 10x3/uL (4.8-10.8)
[2020-08-08 09:39] LABS: ANION GAP 10.1 mmol/L (8-16); CALCIUM 7.1 mg/dL (8.5-10.1); CARBON DIOXIDE 35.4 mmol/L (21.0-32.0); CREATININE - SERUM 1.3 mg/dL (0.6-1.3); POTASSIUM - SERUM 4.5 mmol/L (3.5-5.1)
--- NOTE | 2020-08-08 12:02 | NUR ---
PATIENT ADMITTS TO REHAB FROM ACUTE FLOOR. DISCHARGE PLANS ARE FOR HER TO RETURN HOME WITH HER FAMILY. WILL CONTINUE TO FOLLOW WITH PATIENT.
[2020-08-08 16:02] VITALS: Ht 160 cm; Wt 98.0 kg
--- NOTE | 2020-08-08 18:00 | NUR ---
PT RESTING IN BED WITH EYES OPEN CALL LIGHT IN REACH NO PROBLEMS WILL MONITER
--- NOTE | 2020-08-08 18:02 | NUR ---
PT RESTING IN BED WITH EYES OPEN CALL LIGHT IN REACH WILL MONITER
[2020-08-08 21:25] VITALS: BP 121/51
[2020-08-09 07:46] VITALS: BP 136/53
--- NOTE | 2020-08-09 08:00 | NUR ---
PT RESTING IN BED WITH EYES OPEN CALL [facility] IN REACH NO PROBLEMS WILL MONITER
--- NOTE | 2020-08-09 18:09 | NUR ---
PT RESTING IN BED WITH EYES OPEN CALL LIGHT IN REACH NO PROBLEMS WILL MONITER
--- NOTE | 2020-08-09 19:36 | NUR ---
PT IN BED, NO IMMEDIATE NEEDS NOTED OR VERBALIZED, FLUIDS/CL WITHIN REACH, ALARMS ON AND WORKING
[2020-08-09 20:28] VITALS: BP 133/54
[2020-08-10 07:38] VITALS: BP 127/41
[2020-08-10 08:01] LABS: BASOPHILS 0.3 % (0-2); EOSINOPHILS 3.5 % (0-7); HEMATOCRIT 34.1 % (36.0-48.0); HEMOGLOBIN 10.4 g/dL (12-16); LYMPHOCYTE ABS# 1.94 10x3/uL (1.18-3.74); LYMPHOCYTES 28.5 % (15-50); MCH 25.5 pg (26.0-34.0); MCHC 30.5 g/dL (31.0-37.0); MCV 83.6 fL (80.0-100.0); MEAN PLATELET VOLUME 10.2 fL (7.4-10.4); MONOCYTES 8.2 % (2-11); NEUTROPHIL ABS# 3.98 10x3/uL (1.56-6.13); NEUTROPHILS 58.5 % (40-80); PLATELET COUNT 255 10x3/uL (130-400); RBC 4.08 10x6/uL (4.00-5.40); RDW 17.3 % (11.5-14.5); WBC 6.8 10x3/uL (4.8-10.8)
[2020-08-10 08:13] LABS: ANION GAP 10.3 mmol/L (8-16); CALCIUM 7.1 mg/dL (8.5-10.1); CARBON DIOXIDE 36.8 mmol/L (21.0-32.0); CREATININE - SERUM 1.5 mg/dL (0.6-1.3); POTASSIUM - SERUM 4.1 mmol/L (3.5-5.1)
--- NOTE | 2020-08-10 16:03 | NUR ---
CARE TEAM MEETING: PATIENT IS PROGRESSING IN THERAPY. HER TENATIVE DC DATE IS 08/18/20. PLANS ARE FOR PATIENT TO RETURN TO HER HOME.
[2020-08-10 20:30] VITALS: BP 152/62
--- NOTE | 2020-08-10 23:28 | NUR ---
PT IN BED, NO IMMEDIATE NEEDS NOTED, FLUIDS/CL WITHIN REACH, PRECAUTIONS IN PLACE
[2020-08-11 08:14] VITALS: BP 166/74
--- NOTE | 2020-08-11 09:20 | NUR ---
SHE IS GETTING UP AND DOWN TO THE WHEELCHAIR. SHE HAS BIALATERAL GLUED SITES TO THE SUBCLAVIAN AREA. TOOK HER MEDICATIONS WITHOUT ANY PROBLEMS. THE CALL LIGHT IS WITHIN REACH.
--- NOTE | 2020-08-11 12:22 | NUR ---
CLINICAL UPDATES FAXED TO [employer] AT , AUTH. # [id number] WITH FAX CONFORMATION RECIEVED .ASKING FOR EXTENSION OF DAYS WITH TENATIVE DC DATE OF 08/18/20.
[2020-08-11 20:36] VITALS: BP 145/58
--- NOTE | 2020-08-12 01:21 | NUR ---
PT IS RESTING WITH EYES CLOSED. RESPIRATIONS EVEN AND UNLABORED. BED IS LOW AND CALL LIGHT WITHIN REACH. BED ALARM WAIVER SIGNED AND IS IN HER CHART.
[2020-08-12 07:10] LABS: BASOPHILS 0.3 % (0-2); EOSINOPHILS 3.4 % (0-7); HEMATOCRIT 35.4 % (36.0-48.0); HEMOGLOBIN 10.8 g/dL (12-16); IMMATURE GRANULOCYTES 0.6 % (0-5); LYMPHOCYTE ABS# 1.57 10x3/uL (1.18-3.74); LYMPHOCYTES 25.4 % (15-50); MCH 25.3 pg (26.0-34.0); MCHC 30.5 g/dL (31.0-37.0); MCV 82.9 fL (80.0-100.0); MONOCYTES 8.6 % (2-11); NEUTROPHIL ABS# 3.81 10x3/uL (1.56-6.13); NEUTROPHILS 61.7 % (40-80); PLATELET COUNT 269 10x3/uL (130-400); RBC 4.27 10x6/uL (4.00-5.40); RDW 17.5 % (11.5-14.5); WBC 6.2 10x3/uL (4.8-10.8)
[2020-08-12 07:17] LABS: ANION GAP 8.8 mmol/L (8-16); CALCIUM 7.5 mg/dL (8.5-10.1); CARBON DIOXIDE 38.1 mmol/L (21.0-32.0); CREATININE - SERUM 1.5 mg/dL (0.6-1.3); POTASSIUM - SERUM 3.9 mmol/L (3.5-5.1)
[2020-08-12 08:11] VITALS: BP 141/64
--- NOTE | 2020-08-12 08:30 | NUR ---
PATIENT ALERT/ORIENT. SITTING UP AT THE SIDE OF THE BED TO EAT BREAKFAST. BED ALARM ON. CALL LIGHT WITHIN REACH. WILL CONTINUE WITH PLAN OF CARE
--- NOTE | 2020-08-12 16:03 | NUR ---
Nutrition Follow-up: Diet: Renal PO intake: 75-100%. She reports that her appetite is "pretty good!" Last BM: 08/09/20 Wt: 216# (08/08/20) Meds noted: glipizide, januvia, lasix, probiotics Labs noted: BUN 21(H), Cr 1.5(H), GFR 35(L) Recommend continue current diet. RD will follow-up for re-assessment 08/15/20.
--- NOTE | 2020-08-12 20:00 | NUR ---
PATIENT RECEIVED SITTING UP IN BED. ASSESSMENT & VITAL SIGNS DONE. NO C/O PAIN OR DISTRESS AT THIS TIME. BED LOW. BEDSIDE TABLE & CALL LIGHT WITHIN REACH. WILL CONTINUE TO MONITOR.
[2020-08-12 21:20] VITALS: BP 101/62
--- NOTE | 2020-08-13 02:09 | NUR ---
PATIENT EYES CLOSED. RESPIRATIONS 20 & EVEN. BED LOW. CALL LIGHT & BEDSIDE TABLE WITHIN REACH. WILL CONTINUE TO MONITOR.
--- NOTE | 2020-08-13 05:36 | NUR ---
PATIENT USED CALL LIGHT FOR ASSIST. PATIENT STANDBY ASSIST INTO BATHROOM. VOID ONLY. RETURNED TO LOW BED. CALL LIGHT & BEDSIDE TABLE WITHIN REACH. WILL CONTINUE TO MONITOR.
[2020-08-13 08:00] VITALS: BP 125/49
--- NOTE | 2020-08-13 08:00 | NUR ---
PT RESTING IN BED WITH EYES OPEN CALL LIGHT IN REACH NO PROBLEMS WILL MONITER
--- NOTE | 2020-08-13 18:04 | NUR ---
PT RESTING IN BED WITH EYES OPEN CALL LIGHT IN REACH NO PROBLEMS WILL MONITER
[2020-08-13 19:00] VITALS: BP 155/58
--- NOTE | 2020-08-13 19:59 | NUR ---
PATIENT RECEIVED SITTING UP IN BED. ASSESSMENT & VITAL SIGNS DONE. NO C/O PAIN OR DISTRESS AT THIS TIME. BED LOW. CALL LIGHT & BEDSIDE TABLE WITHIN REACH. WILL CONTINUE TO MONITOR.
--- NOTE | 2020-08-14 02:41 | NUR ---
I have reviewed this patient and I concur with the Shift Assessment completed by the Licensed Practical Nurse today this shift.
--- NOTE | 2020-08-14 04:04 | NUR ---
PATIENT EYES CLOSED. RESPIRATIONS 18 & EVEN. BED LOW. CALL LIGHT & BEDSIDE TABLE WITHIN REACH. WILL CONTINUE TO MONITOR.
--- NOTE | 2020-08-14 06:20 | NUR ---
FSBS 75. PATIENT DRANK 240 CC OF MILK. CALL LIGHT WITHIN REACH. WILL CONTINUE TO MONITOR.
--- NOTE | 2020-08-14 07:37 | NUR ---
PT RESTING IN BED WITH EYES OPEN CALL LIGHT IN REACH NO PROBLEMS WILL MONITER
[2020-08-14 08:00] VITALS: BP 144/57
--- NOTE | 2020-08-14 17:45 | NUR ---
PT RESTING IN BED WITH EYES OPEN CALL LIGHT IN REACH WILL MONITER
[2020-08-14 19:00] VITALS: BP 147/48
--- NOTE | 2020-08-15 03:27 | NUR ---
I have reviewed this patient and I concur with the Shift Assessment completed by the Licensed Practical Nurse today this shift.
--- NOTE | 2020-08-15 03:32 | NUR ---
PATIENT EYES CLOSED. RESPIRATIONS 18 & EVEN. BED LOW. ALARM ON. CALL LIGHT & BEDSIDE TABLE WITHIN REACH. WILL CONTINUE TO MONITOR.
--- NOTE | 2020-08-15 06:29 | NUR ---
PATIENT FSBS 86. PATIENT REFUSED SNACK. WILL WAIT FOR BREAKFAST. BED LOW. CALL LIGHT WITHIN REACH.WILL CONTINUE TO MONITOR.
--- NOTE | 2020-08-15 07:48 | NUR ---
SHE IS SETTING UP IN THE BED. PRN FOR PAIN GIVEN. WEARING 2 LITERS NC. BOTH LOWER LEG HAS REDNESS WITH THE SKIN INTACT. THE CALL LIGHT IS WITHIN REACH.
[2020-08-15 07:57] VITALS: BP 171/51
[2020-08-15 08:32] LABS: ANION GAP 9.4 mmol/L (8-16); CALCIUM 7.2 mg/dL (8.5-10.1); CARBON DIOXIDE 36.7 mmol/L (21.0-32.0); CREATININE - SERUM 1.3 mg/dL (0.6-1.3); POTASSIUM - SERUM 3.1 mmol/L (3.5-5.1)
[2020-08-15 08:39] LABS: BASOPHILS 0.7 % (0-2); EOSINOPHILS 4.1 % (0-7); HEMATOCRIT 32.2 % (36.0-48.0); HEMOGLOBIN 10.2 g/dL (12-16); IMMATURE GRANULOCYTES 0.3 % (0-5); LYMPHOCYTE ABS# 1.42 10x3/uL (1.18-3.74); LYMPHOCYTES 23.3 % (15-50); MCH 26.2 pg (26.0-34.0); MCHC 31.7 g/dL (31.0-37.0); MCV 82.8 fL (80.0-100.0); MEAN PLATELET VOLUME 10.5 fL (7.4-10.4); MONOCYTES 10.3 % (2-11); NEUTROPHIL ABS# 3.73 10x3/uL (1.56-6.13); NEUTROPHILS 61.3 % (40-80); PLATELET COUNT 255 10x3/uL (130-400); RBC 3.89 10x6/uL (4.00-5.40); RDW 17.3 % (11.5-14.5); WBC 6.1 10x3/uL (4.8-10.8)
--- NOTE | 2020-08-15 10:44 | NUR ---
Nutrition Re-assessment: Diet: Renal PO intake: ~69% average x last 9 meals. States that her appetite is "pretty good." She denies any needs from dietary at this time. Last BM: 08/14/20 Wt: 216# (08/08/20) Meds noted: k-dur, glipizide, januvia, lasix, probiotics Labs noted: K 3.1(L), GFR 42(L), Glu 70(L) Estimated nutrition needs: [id number] alexandre (25-30 Adj), 60-80gms protein (0.6-0.8), 1600-1925mL fluid (or per MD) *Adjusted body weight = 64.4kg Nutrition diagnosis: Altered nutrition related lab values r/t kidney dysfunction AEB GFR 42(L). Nutrition goals: -PO intake =/>75% -Meet fluid needs -Stable weight -Renal labs trend near WNL Recommendations/Interventions: -Recommend MD to consider liberating diet to regular as K is low. However, patient personally prefers a renal diet. -Will continue to honor food preferences within diet restrictions. -Will continue to monitor PO intake and wt trend. -RD will follow-up within 7 days.
--- NOTE | 2020-08-15 19:38 | NUR ---
PT IN BED WATCHING TV, NO IMMEDIATE NEEDS NOTED OR VERBALIZED, FLUIDS/CL WITHIN REACH, ALARM WAIVER SIGNED AND IN CHART
[2020-08-15 19:58] VITALS: BP 126/51
[2020-08-16 07:34] VITALS: BP 123/48
--- NOTE | 2020-08-16 08:38 | NUR ---
SHE IS SETTING ON THE SIDE OF THE BED EATING BREAKFAST. WEARING 2 LITERS NC. HAS ALREADY HAD A PAIN PILL. THE CALL LIGHT IS WITHIN REACH.
[2020-08-16 19:58] VITALS: BP 139/52
[2020-08-17 07:18] LABS: BASOPHILS 0.3 % (0-2); EOSINOPHILS 3.5 % (0-7); HEMATOCRIT 36.5 % (36.0-48.0); HEMOGLOBIN 11.3 g/dL (12-16); IMMATURE GRANULOCYTES 0.3 % (0-5); LYMPHOCYTE ABS# 1.83 10x3/uL (1.18-3.74); LYMPHOCYTES 27.5 % (15-50); MCH 25.9 pg (26.0-34.0); MCV 83.7 fL (80.0-100.0); MEAN PLATELET VOLUME 10.6 fL (7.4-10.4); NEUTROPHIL ABS# 4.03 10x3/uL (1.56-6.13); NEUTROPHILS 60.4 % (40-80); PLATELET COUNT 290 10x3/uL (130-400); RBC 4.36 10x6/uL (4.00-5.40); RDW 17.5 % (11.5-14.5); WBC 6.7 10x3/uL (4.8-10.8)
[2020-08-17 07:51] VITALS: BP 145/59
--- NOTE | 2020-08-17 08:00 | NUR ---
PATIENT IS ALERT/ORIENT. SITTING UP ON THE SIDE OF THE BED TO EAT BREAKFAST. CALL LIGHT WITHIN REACH. PATIENT HAS SIGNED A BED/CHAIR ALARM WAVIOR. USING CALL LIGHT FOR NEEDS. VOICES NO NEEDS AT THIS TIME. WILL CONTINUE WITH PLAN OF CARE
[2020-08-17 08:10] LABS: ANION GAP 12.6 mmol/L (8-16); CALCIUM 7.1 mg/dL (8.5-10.1); CARBON DIOXIDE 33.2 mmol/L (21.0-32.0); CREATININE - SERUM 1.4 mg/dL (0.6-1.3); POTASSIUM - SERUM 3.8 mmol/L (3.5-5.1)
--- NOTE | 2020-08-17 11:10 | NUR ---
PATIENT IN REHAB ROOM. WORKING WITH PHYSICAL THERAPIST. DENIES ANY PAIN/DISC AT THIS TIME.
--- NOTE | 2020-08-17 13:41 | NUR ---
PATIENT AMBULATES TO BATHROOM BY SELF WITH WHEELED WALKER. PATIENT HAS HAD DIARRHEA. PRN IMMODIUM GIVEN
--- NOTE | 2020-08-17 14:04 | NUR ---
CARE TEAM MEETING: PATIENT HAS DONE WELL IN THERAPY AND WILL DISCHARGE HOME IN THE AM. [facility] AT HOME WILL RESUME THERAPY. NO NEW DME NEEDED AT THIS TIME. DR. BOSWELL 09/08/20 @ 12:30, DR. MARTÍNEZ/DAVID 09/14/20 @ 9:45, DR. SCHULZ 08/31/20 @ 11:45. COLT SIGNED, IMM SERVED AND EXPLAINED, ONE GIVEN TO PATIENT AND ONE FILED IN CHART. DISCHARGE INSTRUCTIONS FAXED TO PCP, HOME HEALTH AND REVIEWED WITH PATIENT. INSURANCE WILL BE NOTIFIED WHEN PATIENT LEAVES THE BUILDING. ( [employer] ) AUTH. # [id number] ).
--- NOTE | 2020-08-17 15:00 | NUR ---
I have reviewed this patient and I concur with the Shift Assessment completed by the Licensed Practical Nurse today this shift.
--- NOTE | 2020-08-17 19:10 | NUR ---
PATIENT SITTING UP IN BED. VISIOR IN ROOM. VOICES NO NEEDS AT THIS TIME.
[2020-08-17 21:24] VITALS: BP 166/76
--- NOTE | 2020-08-18 04:45 | NUR ---
SITTING UP AT SIDE OF BED. STATED PAIN LEVEL A 7. NORCO 10 PROVIDED. WILL REASSESS PAIN. DENIED FURTHER NEEDS.
[2020-08-18 07:42] VITALS: BP 127/52
--- NOTE | 2020-08-18 08:00 | NUR ---
PT RESTING IN BED WITH EYES OPEN CALL LIGHT IN REACH WILL MONITER
--- NOTE | 2020-08-18 11:30 | NUR ---
PT COMPLAINING OF BECOMING LIGHT HEADED PT SHAKING FROM NECK DOWN SAYING SHE FEELS FUNNY AND NOT COLD JUST CANT STOP SHIVERING. BLOOD SUGAR CHECKED 130. BP CHECKED 181/55 PULSE 74 O2 SAT 100 PERCENT. PT STOPPED SHIVERING AFTER 3 MINUTES AND STATED HER HEAD HURT. CALL PUT IN TO DR BENSON. AFTER PT STATED SHE FELT BETTER AND STOPPED SHIVERING
--- NOTE | 2020-08-18 13:30 | NUR ---
DR BENSON CALLED NO NEW ORDERS FOR PT. HE STATED IF PT FELT BETTER AND FELT LIKE SHE WAS ABLE TO GO HOME SHE COULD GO.
--- NOTE | 2020-08-18 13:45 | NUR ---
PT STATED SHE FELT FINE NOW AND WANTED TO GO HOME.
--- NOTE | 2020-08-18 14:19 | NUR ---
PT DISCHARGED TO HOME VIA WHEELCHAIR WITH SISTER. DISCHARGE SUMMARY AND MEDS REVIEWED WITH NO QUESTIONS OR CONCERNS.
== END 2020-08-18 14:47 | disposition home health service (06) | DRG 309 ==
LOC: D.REHAB 09:55
PROVIDERS: ADMIT Emergency Medicine; ATTEND Emergency Medicine
DX: I48.91 Unspecified atrial fibrillation (principal); N17.9 Acute kidney failure, unspecified; R55 Syncope and collapse; J45.909 Unspecified asthma, uncomplicated; I25.10 Atherosclerotic heart disease of native coronary artery without angina pectoris; J44.9 Chronic obstructive pulmonary disease, unspecified; E78.5 Hyperlipidemia, unspecified; I10 Essential (primary) hypertension; E66.9 Obesity, unspecified; Z95.0 Presence of cardiac pacemaker; R06.02 Shortness of breath; R73.9 Hyperglycemia, unspecified; R09.02 Hypoxemia; D64.9 Anemia, unspecified; R53.1 Weakness; R00.1 Bradycardia, unspecified; K21.9 Gastro-esophageal reflux disease without esophagitis; R53.83 Other fatigue; E87.8 Other disorders of electrolyte and fluid balance, not elsewhere classified; E03.9 Hypothyroidism, unspecified